=== PATIENT | male | born 1940 | race Caucasian/White ===

== ENCOUNTER 2023-03-31 10:30 | Outpatient (RCR) | payer MEDICARE, BC, SELFPAY | END 2023-06-18 12:20 | disposition home or self-care (01) | PROVIDERS: Visit Provider Family Medicine | DX: R26.81 Unsteadiness on feet (principal); R26.9 Unspecified abnormalities of gait and mobility; M62.81 Muscle weakness (generalized); R29.6 Repeated falls; Z51.89 Encounter for other specified aftercare | CPT/HCPCS: 97110; 97112; 97116; 97162; 97530 ==

== ENCOUNTER 2023-06-09 12:57 | Outpatient (CLI) | payer MEDICARE, BC, SELFPAY | END 2023-06-09 12:58 | disposition home or self-care (01) | LOC: CT 12:59 | PROVIDERS: PCP Family Medicine; Visit Provider Orthopaedic Surgery Sports Medicine | DX: M19.011 Primary osteoarthritis, right shoulder (principal) | CPT/HCPCS: 73200 ==

== ENCOUNTER 2023-07-16 09:41 | Day surgery (SDC) | payer MEDICARE, BC, SELFPAY ==
[2023-07-16] VITALS (19 sets, daily range): BP systolic 131–175; BP diastolic 73–97; PULSE 65–109; RESP 16–23; TEMP 36.1–36.6; O2SAT 93–98; BMI 29.5
[2023-07-16] MEDS: ACETAMINOPHEN 500 MG TABLET 1000 MG PO ×2 (10:05→18:14)
[2023-07-16] MEDS: SODIUM CHLORIDE 0.9 % (FLUSH) 10 ML SYRINGE IVF (10:10)
[2023-07-16] MEDS: LACTATED RINGERS 1000 ML 1,000 ML 100 ML IV ×2 (10:10→13:12)
--- NOTE | 2023-07-16 10:38 | W.ANESCHARGE ---
Anesthesia Charges Start Date/Time Anesthesia Start Date: 07/16/23 Anesthesia Start Time: 12:45 Stop Date/Time Anesthesia Stop Date: 07/16/23 Anesthesia Stop Time: 15:17 Summary Extremes of Age - Over 70 or under 1: MDA
--- NOTE | 2023-07-16 10:39 | W.PM.NB ---
Nerve Block Nerve Block Time Seen by Provider: 12:05 Date Seen: 07/16/23 Type of block requested by surgeon for post-operative analgesia: supraclavicular Side: right Time out performed: Yes Verification of patient name: Yes Verification of date of : Yes Site marking: site marked Name of person performing procedure: Jayant Continuous monitoring Was continuous monitoring of O2 sat, B/P, color television console monitor, recorded every 15 minutes?: Yes Procedure Checklist: sterile prep, needles and gloves Ultrasound guided. Images saved: Yes Medications given in 5ml increments after negative aspiration: Ropivicaine %: 0.5 mL: 20 Needle gauge: 22 Decadron (mg): 10 Precedex (mcg): 25 Patient tolerated procedure well: Yes Block Charges Block Charge (with Pro Fee): Brachial Plexus Use of Ultrasound Machine for Block: Yes- US Guidance/pain block
--- NOTE | 2023-07-16 11:59 | W.PM.H&PU ---
History & Physical Update History & Physical Update H&P Reviewed and patient assessed: No changes noted
[2023-07-16] MEDS: fentaNYL 100 MCG/2 ML inj IVP (12:00)
[2023-07-16] MEDS: MIDAZOLAM HCL 1 MG/ML inj IVP (12:00)
[2023-07-16] MEDS: CEFAZOLIN 2 GM in 0.9 % SODIUM CHLORIDE Mini-bag 100 ML IVPB ×2 (12:01→18:13)
[2023-07-16] MEDS: TRANEXAMIC ACID 100 MG/ML INJ 1000 MG IV (12:03)
--- NOTE | 2023-07-16 12:15 | SUR.PREOP ---
TIME?OUT:?1200 PT/Javan BARCLAY RN/Jos HODGES MDA?VERIFICATION?OF?SURGICAL?SITE,?PROCEDURE,?AND?CONSENT OBTAINED?PRIOR?TO?INVASIVE?PROCEDURE.
--- NOTE | 2023-07-16 13:04 | XR_ITS ---
Patient: ALIZA HOPKINS Facility:?[facility] Patient ID:?[id number] Site Patient ID:?[id number]. Site :?[id number] Study:?XRay-Extremity Right 2V SHOULDER-07/16/2023 3:33:50 PM Ordering Physician:?DR. JORDAN Final Report: Indication: RIGHT REVERSE TOTAL SHOULDER Technique: Two views right shoulder Findings/Impression: Hardware from a right reverse total shoulder arthroplasty is in satisfactory position. Bone alignment is normal. No sign of acute fracture. Postop changes are within normal limits. Dictated by Germain Ferris MD @ 07/17/2023 10:24:50 AM Signed by:?Germain Ferris MD @07/17/2023 10:24:50 AM (Electronic Signature)
--- NOTE | 2023-07-16 15:01 | P.ORPRC_ITS ---
Procedure Note Date of procedure: 07/16/23 Procedure: PREOPERATIVE DIAGNOSIS: 1. Right shoulder cuff tear arthropathy, severe POSTOPERATIVE DIAGNOSIS: 1. Right shoulder cuff tear arthropathy, severe PROCEDURE: 1. Right reverse shoulder arthroplasty. SURGEON: Manpreet Vicente MD. HOSTLER HELPER: Luis F Goyal PA-C - Of note, a skilled medical office assistant instructor was critical for this case to aid in patient positioning, tissue retraction, limb manipulation/positioning, retraction for glenoid exposure, which was challenging, awareness and protection of critical structures, and closure. ANESTHESIA: General plus supraclavicular block EBL: 250 ml IMPLANTS: DJ0 surgical Altivate humeral stem size 12 regular shell, short with P2 porous coating vitamin E neutral poly small socket insert RSP glenoid base plate P2 porous coating with 4 perimeter locking screws 32 neutral glenosphere with retaining screw COMPLICATIONS: None evident INDICATIONS: The patient is a pleasant 83-year-old male who has experienced severe right shoulder pain and difficulty with use. Workup included imaging which revealed severe osteoarthrosis along with concern for rotator cuff quality. Physical exam was consistent with associated pain. Given the deformity, the dysfunction, and the pain, and failure of nonoperative management, recommendation was made for surgery. DESCRIPTION OF PROCEDURE: Following a thorough discussion of risks, benefits, and alternatives, consent was obtained and the left shoulder was marked. The patient was brought to the operating room and placed supine on the operating table. Induction of anesthesia was undertaken. 2 g IV Ancef and 1 g tranexamic acid was administered within 1 hr of incision preoperatively. Appropriate time- out was performed identifying proper patient, site, and procedure. The operative extremity was prepped and draped in the appropriate sterile fashion using ChloraPrep after the patient was positioned in the lazy beach chair position with head in neutral alignment and all bony prominences well padded. A longitudinal incision was made for deltopectoral approach. Deltoid was retracted laterally. Cephalic vein was identified and retracted laterally as well. Vein was spared/protected throughout the case. The clavipectoral fascia was identified and divided longitudinally staying lateral to the conjoined tendon / coracoid. The conjoined tendon was protected with a blunt Hohmann. The long head biceps tendon was not identified/visible. The upper 1/4 of the pectoralis major was also released from its insertion. The rotator cuff was inspected and found to have good integrity with the subscapularis but fair integrity with a supraspinatus], and a decision for a reverse shoulder arthroplasty was confirmed. A subscapularis peel was utilized for access to the joint. This was tagged for later repair. The 3 sisters were cauterized. The upper subscapularis was released from the capsule with a curved Carlos scissors towards the glenoid. The inferior subscapularis was divided from the capsular tissue on its caudal surface with particular caution for the axillary nerve. This was palpated anterior to the subscapularis both prior to and near the finish of the case. Inferior humeral head osteophytes were excised with caution taken throughout the case with regards to the axillary nerve. The humerus was dislocated, and humeral head cut completed. Then a protector plate was applied. We turned our attention to the glenoid. The humerus was retracted posteriorly. The subscap was protected anteriorly and the labrum/long head biceps origin was excised circumferentially. The capsule was released along the anterior and inferior portions of the glenoid cautiously with a Brooks elevator being careful not to penetrate deep. The glenoid had appropriate exposure, and was prepared with the cannulated system with a target of approximately 5-10? of inferior tilt and neutral anteversion (patient had 5 ? of retroversion initially). [Utilizing the match Point 3D printed guide, the guide pin was placed. The 3D printed jig removed and after placing the guide pin, the tap was placed followed by the glenoid reaming. The real base plate was opened, and inserted, and excellent compression/purchase was achieved with the central screw. Peripheral screws were then drilled, measured, and placed. The glenosphere was then placed consistent with the preoperative plan utilizing the above noted glenosphere. After securing the glenosphere with the locking, torque limited screw, attention was turned back to the humerus. A canal finder was placed followed by various reamers by hand. The real humeral stem was then opened and inserted with excellent metaphyseal fit and stability. Trial poly was placed and the shoulder reduced. Excellent reduction and stability achieved with appropriate tension on the conjoined tendon. At this stage, trial implants were removed, and the real implants inserted and the shoulder reduced. A 3 minute Betadine soak was performed followed by a thorough irrigation with normal saline. Subscapularis was repaired with suture tape through drill holes in the proximal humerus that were wrapped around the stem as it was being inserted and allowed it to be anchored. Excellent reapproximation of tissue achieved. Hemostasis was found to be appropriate. The deltopectoral interval was reapproximated with 0 Vicryl, subcutaneous and subcuticular closure was then performed with number 2-0 Vicryl and 4-0 Monocryl, respectively. A skilled medical office assistant instructor was critical for this case to aid in patient positioning, tissue retraction, limb manipulation/positioning, retraction for glenoid exposure, which was challenging, awareness and protection of critical structures, and closure. PLAN: 1. Sling at all times for the operative upper extremity. 2. AROM of elbow, forearm, wrist, and digits as tolerated. 3. PT/OT consults for education and assistance. 4. Social consult for discharge planning. 5. 23 hr perioperative antibiotics. 6. Early ambulation, and SCDs for DVT prophylaxis. 7. Admit to the hospital for the above 8. Analgesics p.r.n.
--- NOTE | 2023-07-16 15:33 | W.ANESCHARGE ---
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
[2023-07-16] MEDS: LACTATED RINGERS 1000 ML 1,000 ML 75 ML IV (15:51)
--- NOTE | 2023-07-16 15:57 | SUR.PHASEI ---
Patient met discharge criteria per anesthesia
[2023-07-16] MEDS: HYDROCODONE-ACETAMIN 5-325 MG 1 TAB PO ×2 (17:11→22:21)
--- NOTE | 2023-07-16 17:14 | PM.IMCN1 ---
Date of Consult Consult date: 07/16/23 Requesting Physician: Orthopedics Primary Care Provider: Lisandro Garcia MD Consult Narrative Reason for consult: Medical management of comorbidities Narrative: Braydon Allen is a 83 year old male who presented to the hospital today for an elective reverse right total shoulder. There were no surgical or anesthetic complications noted during procedure. Patient's H&P reviewed, PCP is Dr. Garcia. Past medical history significant for: CKD, hypertension, hyperlipidemia, [id number] DM2. Postoperative plan: home with When I see patient, he is sitting comfortably in bed and having supper. Review of Systems Status of ROS: Reports: 10 or more systems reviewed and unremarkable except as noted in History and below [facility] Medical History (Updated 05/16/23 @ 10:36 by Monik Franco) Traumatic tear of right rotator cuff ?S46.011A - Strain of muscle(s) and tendon(s) of the rotator cuff of right shoulder, initial encounter (ICD-10) MRSA infection ?A49.02 - Methicillin resistant Staphylococcus aureus infection, unspecified site (ICD-10) Arthritis ?M19.90 - Unspecified osteoarthritis, unspecified site (ICD-10) Type 2 diabetes mellitus ?E11.9 - Type 2 diabetes mellitus without complications (ICD-10) Myocardial infarction ?I21.9 - Acute myocardial infarction, unspecified (ICD-10) Hypertension ?I10 - Essential (primary) hypertension (ICD-10) Coronary artery disease ?I25.10 - Atherosclerotic heart disease of [place] coronary artery without angina pectoris (ICD-10) Surgical History (Updated 07/16/23 @ 17:19 by Erica Mccain MD) S/P shoulder replacement ?Z96.619 - Presence of unspecified artificial shoulder joint (ICD-10) H/O arthroscopy of right knee (06/05/07) ?Z98.890 - Other specified postprocedural states (ICD-10) History of prostate surgery ?Z98.890 - Other specified postprocedural states (ICD-10) 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) ?Z96.651 - Presence of right artificial knee joint (ICD-10) H/O hernia repair ?Z98.890 - Other specified postprocedural states (ICD-10) ?Z87.19 - Personal history of other diseases of the digestive system (ICD-10) History of cholecystectomy ?Z90.49 - Acquired absence of other specified parts of digestive tract (ICD-10) H/O right coronary artery stent placement ?Z95.5 - Presence of coronary angioplasty implant and graft (ICD-10) History of right hip replacement (12/13/19) ?Z96.641 - Presence of right artificial hip joint (ICD-10) Social History Smoking Status: Never smoker How often do you have a drink containing alcohol: never AUDIT-C Alcohol total score: 0 Non-prescribed substance use: denies use Caffeine: Yes Meds Home Medications and Allergies Home Medications Medication Instructions Recorded Confirmed Type amlodipine 5 mg tablet 5 mg PO DAILY 05/16/23 07/16/23 History rosuvastatin 20 mg tablet 20 mg PO HS 05/16/23 07/16/23 History ascorbic acid (vitamin C) 1,000 mg 1 g PO DAILY 07/16/23 07/16/23 History capsule cholecalciferol (vitamin D3) 125 125 mcg PO DAILY 07/16/23 07/16/23 History mcg (5,000 unit) capsule glipizide 2.5 mg tablet, extended 2.5 mg PO DAILY 07/16/23 07/16/23 History release 24 hr omega 4-tug-cpl-fish oil 1,000 mg 1 cap PO DAILY 07/16/23 07/16/23 History (120 mg-180 mg) capsule (Fish Oil) sildenafil 50 mg tablet (Viagra) 50 mg PO DAILY PRN 07/16/23 07/16/23 History Allergies Allergy/AdvReac Type Severity Reaction Status Date / Time adhesive Allergy Verified 07/16/23 10:17 oxycodone Allergy hallucinati Verified 07/16/23 10:17 ons pseudoephedrine AdvReac Intermediate unable to Verified 07/16/23 10:17 [From Sudafed] urinate atorvastatin AdvReac Diarrhea Verified 07/16/23 10:17 Exam Narrative: Exam Narrative: GEN: Alert and oriented, nontoxic HEENT: Normal external ears, EOMIs bilaterally, no scleral icterus CV: Pulse palpates as RRR R: Breathing comfortably without tachypnea Ext: wwp, no concerning edema Skin: No concerning skin lesions or rashes on exposed skin Neuro: Nonfocal Psych: Appropriate Const: Vital Signs, click to edit/add: Vital Signs - 24 hr 07/16/23 10:18 07/16/23 11:58 07/16/23 12:05 Temperature 97.8 F Pulse Rate 82 67 65 Respiratory Rate 16 16 16 Blood Pressure 175/83 H 166/88 H 154/77 H Pulse Oximetry 98 98 97 Oxygen Delivery Me thod Room Air Nasal Cannula Nasal Cannula Oxygen Flow Rate 2 2 07/16/23 15:14 07/16/23 15:15 07/16/23 15:20 Temperature 97.1 F L Pulse Rate 94 97 94 Respiratory Rate 20 20 Blood Pressure 157/83 H 149/80 H 146/96 H Pulse Oximetry 98 97 93 Oxygen Delivery Me thod Room Air Oxygen Flow Rate 07/16/23 15:25 07/16/23 15:30 07/16/23 15:35 Temperature Pulse Rate 93 94 90 Respiratory Rate 20 23 20 Blood Pressure 138/76 140/78 H 139/74 Pulse Oximetry 94 94 95 Oxygen Delivery Me thod Oxygen Flow Rate 07/16/23 15:40 07/16/23 16:00 07/16/23 16:11 Temperature 97 F L 97 F L 96.9 F L Pulse Rate 91 88 90 Respiratory Rate 21 18 180 H Blood Pressure 137/74 147/77 H 139/75 Pulse Oximetry 94 94 94 Oxygen Delivery Me thod Room Air Room Air Oxygen Flow Rate Assessment and Plan Assessment and plan (1) S/P shoulder replacement: Problem comment: - R, 07/16/23Cinthia Status: Acute Plan - pain management and prophylaxis per orthopedic surgery team - continue home medications for comorbidities - anticipate routine postoperative course
[2023-07-16] MEDS: SENNOSIDES 1 TAB TABLET 2 TAB PO (20:49)
[2023-07-16] MEDS: LACTATED RINGERS 1000 ML 1,000 ML 35 ML IV (20:50)
[2023-07-17] MEDS: ACETAMINOPHEN 500 MG TABLET 1000 MG PO (00:50)
[2023-07-17] MEDS: CEFAZOLIN 2 GM in 0.9 % SODIUM CHLORIDE Mini-bag 100 ML IVPB (01:54)
[2023-07-17 02:26] VITALS: BP 156/88; PULSE 101; RESP 18; TEMP 36.4; O2SAT 95
--- NOTE | 2023-07-17 05:18 | PC.NURSE ---
Patient pleasant, alert and oriented. Dressing to right shoulder clean, dry and intact. Ice pack applied to right shoulder. Rates pain 2/10. Tolerated regular diet. Ambulates with assist of one. ?
[2023-07-17] MEDS: HYDROCODONE-ACETAMIN 5-325 MG 1 TAB PO (06:07)
[2023-07-17 06:21] LABS: Hematocrit 34.5 % (37.0-53.0); Hemoglobin* 11.7 gm/dL (13.5-17.5); Mean Corpuscular HGB Conc 34 gm/dL (32-36); Mean Corpuscular Hemoglobin 31 pg (26-34); Mean Corpuscular Volume 91 fL (80-100); Platelet Count* 198 K/uL (140-440); Red Blood Count 3.79 m/uL (4.30-5.90); White Blood Count* 14.63 K/uL (4.50-11.00)
[2023-07-17 06:40] LABS: Potassium* 4.4 mmol/L (3.6-5.1); Sodium* 135 mmol/L (135-149)
[2023-07-17 06:43] LABS: Blood Urea Nitrogen* 42 mg/dL (7-30); Estimated Glomerular Filt Rate 32 ml/min
[2023-07-17 06:50] LABS: Slide Review Reflex No
[2023-07-17 07:59] VITALS: BP 154/98; PULSE 72; RESP 18; TEMP 36.6; O2SAT 92
[2023-07-17] MEDS: AMLODIPINE 5 MG TABLET PO (08:39)
[2023-07-17] MEDS: SENNOSIDES 1 TAB TABLET 2 TAB PO (08:40)
[2023-07-17] MEDS: glipiZIDE 2.5 MG ER TAB PO (08:40)
[2023-07-17] MEDS: HYDROmorphone 2 MG TABLET PO (08:40)
--- NOTE | 2023-07-17 09:33 | PM.ORPN ---
Subjective Subjective Date Seen: 07/17/23 Principal diagnosis: Status postop day 1 right reverse total shoulder arthroplasty Interval history: Patient reports doing okay. No acute events over night. Moderate shoulder pain; switched to hydromorphone now. Pain managed with scheduled and PRN medications, ice. DVT prophylaxis: bilateral knee high Marcial stockings, SCDs, walking. Denies fevers, chills, aches, N/V, CP, SOB/LIRA, or lightheadedness. Ortho Exam Narrative Exam Narrative: -Patient appears comfortable in recliner; no apparent acute distress -Alert and oriented times 3 -Operative shoulder swollen; soft, supple tissues; no obvious erythema. Ecchymosis minimal. Warmth appropriate -Surgical dressing clean, dry, intact; no obvious drainage, no erythematous streaking peripheral to the bandage -Bilateral calves soft and supple; no significant swelling, edema, tenderness, erythema, discoloration, warmth, or palpable cords -2+ radial pulse, intact dermatomes and myotomes distally (5/5 strength) Const Vital Signs, click to edit/add: Vital Signs - 24 hr 07/16/23 10:18 07/16/23 11:58 07/16/23 12:05 Temperature 97.8 F Pulse Rate 82 67 65 Pulse Rate [Pulse Oximeter] Pulse Rate [Right Radial] Respiratory Rate 16 16 16 Blood Pressure 175/83 H 166/88 H 154/77 H Blood Pressure [Left Arm] Pulse Oximetry 98 98 97 Oxygen Delivery Method Room Air Nasal Cannula Nasal Cannula Oxygen Flow Rate 2 2 07/16/23 15:14 07/16/23 15:15 07/16/23 15:20 Temperature 97.1 F L Pulse Rate 94 97 94 Pulse Rate [Pulse Oximeter] Pulse Rate [Right Radial] Respiratory Rate 20 20 Blood Pressure 157/83 H 149/80 H 146/96 H Blood Pressure [Left Arm] Pulse Oximetry 98 97 93 Oxygen Delivery Method Room Air Oxygen Flow Rate 07/16/23 15:25 07/16/23 15:30 07/16/23 15:35 Temperature Pulse Rate 93 94 90 Pulse Rate [Pulse Oximeter] Pulse Rate [Right Radial] Respiratory Rate 20 23 20 Blood Pressure 138/76 140/78 H 139/74 Blood Pressure [Left Arm] Pulse Oximetry 94 94 95 Oxygen Delivery Method Oxygen Flow Rate 07/16/23 15:40 07/16/23 16:00 07/16/23 16:15 Temperature 97 F L 97 F L Pulse Rate 91 88 94 Pulse Rate [Pulse Oximeter] Pulse Rate [Right Radial] Respiratory Rate 21 18 18 Blood Pressure 137/74 147/77 H 140/73 H Blood Pressure [Left Arm] Pulse Oximetry 94 94 93 Oxygen Delivery Method Room Air Room Air Oxygen Flow Rate 07/16/23 16:30 07/16/23 16:45 07/16/23 17:15 Temperature 97.1 F L 97 F L Pulse Rate 93 107 H 104 H Pulse Rate [Pulse Oximeter] Pulse Rate [Right Radial] Respiratory Rate 18 18 18 Blood Pressure 146/75 H 143/77 H 131/97 H Blood Pressure [Left Arm] Pulse Oximetry 94 94 95 Oxygen Delivery Method Room Air Room Air Room Air Oxygen Flow Rate 07/16/23 18:15 07/16/23 19:15 07/16/23 20:15 Temperature Pulse Rate 108 H 103 H 109 H Pulse Rate [Pulse Oximeter] Pulse Rate [Right Radial] Respiratory Rate 18 18 18 Blood Pressure 131/97 H 133/80 144/76 H Blood Pressure [Left Arm] Pulse Oximetry 95 95 96 Oxygen Delivery Method Room Air Room Air Room Air Oxygen Flow Rate 07/16/23 23:00 07/17/23 02:26 07/17/23 07:59 Temperature 97.0 F L 97.5 F L 97.8 F Pulse Rate Pulse Rate [Pulse Oximeter] 102 H 101 H Pulse Rate [Right Radial] 72 Respiratory Rate 18 18 18 Blood Pressure Blood Pressure [Left Arm] 151/85 H 156/88 H 154/98 H Pulse Oximetry 96 95 92 Oxygen Delivery Method Room Air Room Air Room Air Oxygen Flow Rate Assessment and Plan Assessment and plan (1) S/P shoulder replacement: Problem details: - R, 07/16/23, Cinthia Status: Acute Plan - Complete 23 hour perioperative antibiotics. - PT/OT consult for education and assistance. - Social work consult for discharge planning - Prescribed analgesics as needed - DVT prophylaxis: bilateral knee high Marcial Hose stockings and SCDs - Anticipation is for discharge to home with spouse today, 07/17/2023 if the patient remains medically stable, pain is controlled, and they are safe with mobilization.
--- NOTE | 2023-07-17 10:01 | REH.PT ---
Pt declines PT Eval & Treat. Feels comfortable with HEP and is ind with mobility. Spouse in agreement. D/C PT.
== END 2023-07-17 10:17 | disposition home or self-care (01) ==
LOC: OR 09:42 → MEDSURG 09:43
PROVIDERS: PCP Family Medicine; Visit Provider Orthopaedic Surgery Sports Medicine
PROC: 0RRJ0JZ Replacement of Right Shoulder Joint with Synthetic Substitute, Open Approach (ICD-10-PCS; CPT 23472; principal; 2023-07-16 11:15)
DX: M75.121 Complete rotator cuff tear or rupture of right shoulder, not specified as traumatic (principal); G89.18 Other acute postprocedural pain; I12.9 Hypertensive chronic kidney disease with stage 1 through stage 4 chronic kidney disease, or unspecified chronic kidney disease; E11.22 Type 2 diabetes mellitus with diabetic chronic kidney disease; N18.32 Chronic kidney disease, stage 3b; E78.5 Hyperlipidemia, unspecified
CPT/HCPCS: 23472; 01638; 36415; 64415; 73030; 76942; 82565; 82962; 84132; 84295; 84520; 85027; 97165; 97535; 99100; A9270; C1713; C1776; J0690; J1100; J2250; J2405; J2704; J2710; J2795; J3010; J7120

== ENCOUNTER 2023-10-31 14:30 | Outpatient (RCR) | payer MEDICARE, BC, SELFPAY ==
--- NOTE | 2023-08-04 16:54 | PT.OPEX ---
PT [place] Outpatient Eval PT [facility] Outpatient Eval Start: 08/04/23 15:14 Freq: Status: Active Protocol: Document 08/04/23 15:15 LOLLY (Rec: 08/04/23 16:49 LOLLY [id number]) E-signed By Kira Moreno DPT Physical Therapy Outpatient Evaluation Insurance Information Recert Due Date 11/02/23 Insurance Name Medicare B,Blue Cross/[employer] Medical Diagnosis s/p R reverse TSA 07/16/23 Treating Diagnosis s/p R reverse TSA 07/16/23 with R shoulder pain, impaired R shoulder ROM, impaired R shoulder/UE mobility/strength, impaired functional use of R shoulder/UE. Subjective Subjective Patient reports having R reverse total shoulder surgery on 07/15. States he was using his sling initially but has been able to go without it at home or with light activity. Still wearing the sling when out in the community to protect his shoulder. He reports mild-moderate pain, really describes it more as achiness. Using tylenol regularly. Initially using ice but hasn't needed it lately. Patient had follow up with [facility] K[facility]s 07/24 to remove the dressing. Incision is looking good, healing. Patient has been doing elbow/ wrist/hand ROM and R shoulder codmans. Per patient report he is able to go without the sling at home and use R UE for eating, light activity moving forward but not out to his side. Follow up scheduled for MD September 04. Date of Last Physician Visit 07/25/23 Date of Next Physician Visit 09/05/23 Date of Surgery (If applicable) 07/16/23 Precautions Treatment Precautions/Contraindications DM, heart condition, HTN, cancer, OA, R reverse TSA 07/15 Assessment Assessment/Impression Patient is an 83 year old male s/p R reverse TSA 07/16/23 with R shoulder pain, impaired R shoulder ROM, impaired R shoulder/UE mobility/strength, impaired functional use of R shoulder/UE. Patient reports general soreness/achiness in R shoulder, moderate pain. He is using tylenol regularly, not icing lately. He has been doing elbow/wrist/hand ROM exercises, elbow ext stretching, R shoulder codmans . Reports using the sling when going out. Patient/ spouse state that MD instructed him to use the sling when going out but ok to have it off at home as long as he isn't lifting, reaching out to the side. Sleep has been interrupted in the recliner chair. Patient reports his normal sleep position is on his R side. Reviewed protection of R shoulder/UE for healing, use of sling, icing, and HEP. Patient with a good understanding of this information. Performed codmans and supine PROM R shoulder. R shoulder PROM: flex 95 degrees, scap 90 degrees, IR 50 degrees, ER 10 degrees. Strength testing deferred at this time s/p R reverse TSA. Patient to continue with his HEP. Patient would benefit from skilled PT for pain/sx management, improved R shoulder ROM, improved R shoulder/UE mobility/strength, return to functional use of R shoulder/UE, and establishment of HEP. Plan of Care Rehabilitation Potential Good Physical Therapy Goals 1. Decrease R shoulder pain to less than/equal to 3/10 with daily activities and with the progression of PT activities over the next 6-8 weeks. 2. Improve R shoulder PROM over the next 6-8 weeks to prepare for return to functional use of R shoulder/UE. 3. Improve R shoulder AROM over the next 8-10 weeks for return to functional use of R shoulder/ UE with daily activities. 4. Improve R shoulder/UE strength over the next 10-12 weeks for return to full functional use of R shoulder/UE with daily activities. 5. Patient will be I with HEP within 12 weeks for progression toward above goals, ongoing self management of pain/sx, ongoing self improvements in ROM/strength/function, and for return to full functional use of R shoulder/UE with daily activities. Coordination/Communication With Referral Source Treatment Plan/Direct Interventions Manual Therapy,Therapeutic Exercises Frequency/Duration 1-2x/week Patient Will Be Discharged From Therapy Completion of LTG(s),Skills Plateau,Independent w/HEP, Independently Progressing Evaluation Billing Untimed Code Treatment Minutes 23 Complexity Moderate Certification Information Initial Certification Date 08/04/23 Ending Certification Date 11/02/23 Provider Signature Shows Agreement With POC & Medical Necessity Physician Signature & Date Requested Please Sign/Date Here Physician Comment/Change : Physician NPI Number #
== END 2024-02-28 23:59 | disposition home or self-care (01) ==
PROVIDERS: Visit Provider Orthopaedic Surgery Sports Medicine
DX: M19.011 Primary osteoarthritis, right shoulder (principal); Z96.611 Presence of right artificial shoulder joint; M25.511 Pain in right shoulder; Z74.09 Other reduced mobility; R29.898 Other symptoms and signs involving the musculoskeletal system; Z51.89 Encounter for other specified aftercare
CPT/HCPCS: 97110; 97162; 97165; 97535

== ENCOUNTER 2024-11-22 20:50 | Outpatient (CLI) | payer MEDICARE, BC, SELFPAY | END 2024-11-22 20:51 | disposition home or self-care (01) | PROVIDERS: PCP Family Medicine; Visit Provider Emergency Medicine Emergency Medical Services | DX: S89.91XA Unspecified injury of right lower leg, initial encounter (principal); W10.8XXA Fall (on) (from) other stairs and steps, initial encounter; Y92.008 Other place in unspecified non-institutional (private) residence as the place of occurrence of the external cause | CPT/HCPCS: A0425; A0427 ==

== ENCOUNTER 2024-11-22 21:41 | Emergency (ER) | payer MEDICARE, BC, SELFPAY ==
--- OUTSIDE RECORDS SUMMARY | 2024-11-08 10:30 | XMS_ITS | Encounter Summary ---
Author Organization [facility] Address [address] [place] [address] Care Team Providers Care Business Solution Analyst Name Role Phone Lisandro Garcia MD Primary Care Provider [phone] Reason for Visit * Reason Comments Follow-up Encounter Details Date Type Department Care Team (Late st Contact Info) Description 11/08/2024 10:30 AM CDT Office Visit [facility] [address] [place] [address] Solitario Garcia MD [address] [place] [place] [address] Chronic kidney disease stage 4 [...] Braydon Allen Date of : 1940 Chart: [id number] PCP: Lisandro Garcia MD Date of Service: [...] obstruction. His Cr trend has been 1.1-1.2from 9336-4050; 1.1-1.6 from 7864-5051 -> 2.0 on 02/10/23 and now 1.9-2.3 [...] our shared goal. 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 cholecalciferol (VITAMIN D-3) 250 MCG (00511 UT) capsule Ramsey Mccarthy MD Take 125 [...] by mouth 1 (one) time each day [place] 3 1000 MG capsule Ramsey Mccarthy MD [...] . Solitario Garcia MD [facility] documented in this encounter Plan of Treatment [...] (HCC) documented in this encounter Care Teams Business Solution Analyst Relationship Specialty Start Date End Date Lisandro Garcia MD [address] [place] [address] PCP - General Family Medicine 05/11/24 documented as of this encounter
[2024-11-22] VITALS (8 sets, daily range): BP systolic 187–223; BP diastolic 97–111; PULSE 68–79; RESP 16–18; TEMP 36.6–36.7; O2SAT 94–97; BMI 27.3
--- OUTSIDE RECORDS SUMMARY | 2024-11-22 21:44 | XMS_ITS | Encounter Summary ---
Author Organization [facility] Address [address] [place] [address] Care Team Providers Care Damascener Name Role Phone Lisandro Garcia MD Primary Care Provider [phone] Encounter Details Date Type Department Care Team (Late st Contact Info) Description 10/20/2024 Results Follow-Up [facility] [address] [place] [address] Stacey Wu, RN [address] [place] [address] Social History Tobacco Use Types Packs/Day Years [...] on file documented as of this encounter Plan of Treatment Not on file documented as of this encounter Visit Diagnoses Not on filedocumented in this encounter Care Teams Damascener Relationship Specialty Start Date End Date Lisandro Garcia MD [address] [place] [address] PCP - General Family Medicine 05/11/24 documented as of this encounter
--- OUTSIDE RECORDS SUMMARY | 2024-11-22 21:44 | XMS_ITS | Encounter Summary ---
Author Organization [facility] Address [address] [place] [address] Care Team Providers Care Special Effects Makeup Artist Name Role Phone Lisandro Garcia MD Primary Care Provider [phone] Encounter Details Date Type Department Care Team (Late st Contact Info) Description 10/18/2024 Telephone [facility] [address] [place] [address] Stacey Wu, RN [address] [place] [address] Social History Tobacco Use Types [...] on file documented as of this encounter Miscellaneous Notes * Telephone Encounter - Stacey Wu RN - 10/18/2024 2:10 PM CDT Pt called to have lab order faxed to Kim Leon at [phone]. Order faxed. documented in this encounter Plan of Treatment Not on file documented as of this encounter Visit Diagnoses Not on filedocumented in this encounter Care Teams Special Effects Makeup Artist Relationship Specialty Start Date End Date Lisandro Garcia MD [address] [place] [address] PCP - General Family Medicine 05/11/24 documented as of this encounter
--- OUTSIDE RECORDS SUMMARY | 2024-11-22 21:44 | XMS_ITS | Clinical Summary ---
Author Organization [facility] [place] [place] Address [address] [place] [address] Phone Care Team Providers Care Psychiatric Clinical Nurse Specialist Name Role Phone Lisandro Garcia MD Primary Care Provider [phone] Allergies Active Allergy Reactions Criticality Noted Date Comments Adhesive Tape Rash Low 09/02/2018 Atorvastatin Diarrhea High 11/22/2021 Lisinopril Diarrhea 02/13/2023 Other 05/13/2024 Oxycodone Other (see comments) 08/20/2017 Pt reported Pseudoephedrine Other (see comments) 05/13/2024 Medications ascorbic acid (VITAMIN C) 1000 MG tablet Take 1,000 mg by mouth in the morning. Active cholecalcifero l (VITAMIN D-3) 250 MCG (18364 UT) capsule Take 125 mcg by mouth 1 (one) time each day Active glipiZIDE (GLUCOTROL XL) 2.5 MG 24 hr tablet Take 2.5 mg by mouth in the morning. 4 Active olmesartan (BENICAR) 40 MG tablet Take 20 mg by mouth 1 (one) time each day 5 Active Holt 3 1000 MG capsule Take 1 capsule by mouth in the morning. Active rosuvastatin (CRESTOR) 10 MG tablet Take 10 mg by mouth in the morning. 4 Active Zinc 50 MG tablet Take 50 mg by mouth in the morning. Active Coenzyme Q10 400 MG capsule Take by mouth Active Vitamin E 180 MG (400 UNIT) capsule Take by mouth Active MULTIPLE VITAMIN PO Take by mouth Active metoprolol succinate XL (Toprol XL) 25 MG 24 hr tablet Take 1 tablet (25 mg total) by mouth 1 (one) time each day Do not crush or chew. 30 tablet 11 5 05/14/19 26 Active sildenafil (VIAGRA) 50 MG tablet Take 50 mg by mouth at night if needed 2 11/09/19 25 Discontinued Active Problems Problem Noted Date Diagnosed Date Proteinuria 05/11/2024 Lower urinary tract symptoms due to benign prostatic hypertrophy 07/17/2023 Chronic kidney disease stage 4 06/05/2023 Bilateral lower limb edema 04/17/2023 Type 2 diabetes mellitus wit h diabetic chronic kidney disease 04/01/2023 Coronary arteriosclerosis 04/01/2023 Retention of urine 12/19/2021 Erectile dysfunction 11/14/2021 Mass of pancreas 09/07/2018 Overview (05/14/2024): Cystic mass in Pancreas noted on CT at [facility] in 05/2018. Pancreatic MRI recommend to follow up on this area in 05/2019. Hypertensive chronic kidney disease with stage 1 through stage 4 chronic kidney disease, or unspecified chronic kidney disease 08/31/2018 Coronary arteriosclerosis 08/16/2017 Overview (05/14/2024): He had a stent placed in the diagonal branch of his left anterior descending artery on 01/03/2005 at [facility]. Hyperlipidemia 05/18/2012 Encounters Date Type Department Care Team Description 11/08/2024 10:30 AM CDT Office Visit [facility] [address] [place] [address] Solitario Garcia MD Chronic kidney disease stage 4 (HCC) (Primary Dx); Hypertensive chronic kidney disease with stage 1 through stage 4 chronic kidney disease, or unspecified chronic kidney disease; Proteinuria, not otherwise specified; Coronary arteriosclerosis, not otherwise specified; Other hyperlipidemia; Lower urinary tract symptoms due to benign prostatic hypertrophy; Type 2 diabetes mellitus with diabetic chronic kidney disease (HCC) 10/20/2024 Results Follow-Up [facility] [address] [place] [address] Stacey Wu RN 10/18/2024 Telephone [facility] [address] [place] [address] Stacey Wu RN 09/06/2024 Orders Only [facility] [address] [place] [address] Solitario Garcia MD Chronic kidney disease stage 4 (HCC) from Last 3 Months Family History Medical History Relation Comments Diabetes Brother Diabetes Mother Heart disease Mother Relation Status Comments Brother Father Mother Sister Alive Social History Tobacco Use Types Packs/Day Years Used Date Smoking Tobacco: Never Smokeless Tobacco: Never Tobacco Cessation:Counseling Given: Not Answered Alcohol Use Standard Drinks/Week Comments Yes 0 (1 standard drink = 0.6 oz pur e alcohol) rare wine Sex and Gender Information Value Date Recorded Sex Assigned at Not on file Legal Sex Male 11:36 AM EST Gender Identity Not on file Sexual Orientation Not on file Last Filed Vital Signs Vital Sign Reading [...] Mass Index 27.58 11/08/2024 10:18 AM CDT Plan of Treatment Health Maintenance Due Date Last Done Comments Pneumococcal Vaccine: 50+ Years (1 of 2 - PCV) 1959 Diabetes: Ophthalmology Exam 05/11/2024 Diabetes: Pedal Pulse Checked 05/11/2024 Diabetes: Sensory Foot Exam 05/11/2024 Diabetes: Visual Foot Exam 05/11/2024 Influenza Vaccine (#1) 2025 Diabetes: Hemoglobin A1C 01/12/2025 025, 04/13/2024, 06/21/2023, Additional history exists Hepatitis B Vaccine Aged Out No longe r eligible based on patient's age to complete this topic Procedures Procedure Name Priority Date/Time Associated Diagnosis Comments HEMOGLOBIN Routine 10/18/2024 Chronic kidney disease stage 4 (HCC) RENAL FUNCTION PANEL Routine 10/18/2024 Chronic kidney disease stage 4 (HCC) from Last 3 Months Results * (ABNORMAL) Hemoglobin (10/18/2024) Hemoglobin 13.0(L) g/dL [facility] Blood Venous blood / Unknown 10/18/2024 Solitario Garcia MD LAB BLOOD ORDERABLES Final Re sult Performing Organization Address [facility] Co de Phone Number [facility] * (ABNORMAL) Renal function panel (10/18/2024) Glucose 196(H) mg/dL [facility] BUN 48(H) mg/dL [facility] Creatinine 2.40(H) mg/dL [facility] BUN/Creatinine Ratio 20 [facility] Sodium 137 mEq/L [facility] Potassium 4.5 mEq/L [facility] Chloride 105 [facility] Carbon Dioxide 23 mmol/L [facility] Calcium 9.6 mg/dL [facility] Phosphorus, Serum 3.4 mg/dL [facility] Albumin (Blood) 3.8 g/dL [facility] eGFR 26(L) [facility] Blood Venous blood / Unknown 10/18/2024 Solitario Garcia MD LAB BLOOD ORDERABLES Final Re sult Performing Organization Address [facility]/ZIP Co de Phone Number [facility] from Last 3 Months Insurance [facility] Care Teams Psychiatric Clinical Nurse Specialist Relationship Specialty Start Date End Date Lisandro Garcia MD [address] [place] [address] PCP - General Family Medicine 05/11/24
--- OUTSIDE RECORDS SUMMARY | 2024-11-22 21:44 | XMS_ITS | Encounter Summary ---
Author Organization [facility] Address [address] [place] [address] Care Team Providers Care Cook Room Supervisor Name Role Phone Lisandro Garcia MD Primary Care Provider [phone] Encounter Details Date Type Department Care Team (Late st Contact Info) Description 09/06/2024 Orders Only [facility] [address] [place] [address] Solitario Garcia MD [address] [place] [address] Chronic kidney disease stage 4 (HCC) Social History Tobacco Use Types Packs/Day [...] on file documented as of this encounter Procedures Procedure Name Priority Date/Time Associated Diagnosis Comments HEMOGLOBIN Routine 10/18/2024 Chronic kidney disease stage 4 (HCC) RENAL FUNCTION PANEL Routine 10/18/2024 Chronic kidney disease stage 4 (HCC) documented in this encounter Results * (ABNORMAL) Hemoglobin (10/18/2024) Hemoglobin 13.0(L) g/dL [facility] Blood Venous blood / Unknown 10/18/2024 Solitario Garcia MD LAB BLOOD ORDERABLES Final Re [facility] Performing Organization Address [facility] Co de Phone Number [facility] [...] Solitario Garcia MD LAB BLOOD ORDERABLES Final [facility] Performing Organization Address [facility] de Phone Number [facility] documented in this encounter Visit Diagnoses Diagnosis Chronic kidney disease stage 4 (HCC) documented in this encounter Care Teams Cook Room Supervisor Relationship Specialty Start Date End Date Lisandro Garcia MD [address] [place] [address] PCP - General Family Medicine 05/11/24 documented as of this encounter
--- OUTSIDE RECORDS SUMMARY | 2024-11-22 21:44 | XMS_ITS | Clinical Summary ---
Author Organization [facility] Address [address] [place] [address] Care Team Providers Care Tank Filler Name Role Phone Lisandro Garcia MD Primary Care Provider Allergies Active Allergy Reactions Criticality Noted Date Comments Adhesive Tape-Silicones Rash 09/02/2018 Atorvastatin Diarrhea High 11/22/2021 Cats (Fur, Dander, Saliva) Lisinopril Diarrhea 02/13/2023 Oxycodone Hallucinations 08/20/2017 Pt reported Pseudoephedrine Medications zinc 50 mg tablet Take 50 mg by mouth once daily. Active ascorbic acid, vitamin C, (Vitamin C) 1,000 mg tablet Take 1,000 mg by mouth once daily. Active cholecalciferol, vitamin D3, (VITAMIN D3 ORAL) Take 125 mcg by mouth once daily. Active lancetsIndications: Type 2 diabetes mellitus without complication, without long-term current use of insulin (HC) Test one time per day. 100 Each 3 1 Active sildenafil citrate (VIAGRA) 50 mg tabletIndications:E rectile dysfunction, unspecified erectile dysfunction type Take 1 Tablet (50 mg) by mouth once daily if needed for Erectile Dysfunction. Take 30min to 4 hours before sexual activity. Max 100mg/24hr 10 Tablet 6 2 Active Catheter 12-16 Fr- miscIndications:Uri nary retention As directed. Perform Int cath to keep pvr Less than 300cc 100 Each 6 3 Active Jvioc-4-[id number]-EPA-Fis h Oil (Fish OiL) 1,000 mg (120 mg-180 mg) cap Take 1 Capsule by mouth once daily. Active rosuvastatin (CRESTOR) 10 mg tabletIndications:H yperlipidemia, unspecified hyperlipidemia type Take 1 Tablet (10 mg) by mouth at bedtime. 90 Tablet 3 4 Active olmesartan (BENICAR) 40 mg tabletIndications:B enign essential HTN Take 1 Tablet (40 mg) by mouth once daily. 90 Tablet 3 5 Active metoprolol succinate 25 mg Sustained-Release tablet Take 25 mg by mouth once daily. Active blood sugar diagnostic (Blood Glucose Test) stripIndications:Ty pe 2 diabetes mellitus without complication, without long-term current use of insulin (HC) Test one time per day. 100 Each 3 5 Active glipiZIDE extended-release 2.5 mg Extended-Release tabletIndications:T ype 2 diabetes mellitus without complication, without long-term current use of insulin (HC) Take 1 Tablet (2.5 mg) by mouth once daily before a meal. 90 Tablet 1 5 Active Active Problems Problem Noted Date Diagnosed Date Proteinuria 05/11/2024 CKD (chronic kidney disease) stage 4, GFR 15-29 ml/min 06/05/2023 Bilateral lower extremity edema 04/17/2023 Type 2 diabetes mellitus wit h stage 3 chronic kidney disease, unspecified whether keno terminal operator insulin use, unspecified whether stage 3a or 3b CKD 09/09/2022 Urinary retention 12/19/2021 Positive for macroalbuminuria 12/19/2021 Erectile dysfunction 11/14/2021 Pancreatic mass 09/07/2018 Overview (09/07/2018): Cystic mass in Pancreas noted on CT at [facility] in 05/2018. Pancreatic MRI recommend to follow up on this area in 05/2019. Essential hypertension 08/31/2018 CAD: SETH to diag 01/200508/16/2017 Overview (11/26/2019): He had a stent placed in the diagonal branch of his left anterior descending artery on 01/03/2005 at [facility]. Type 2 diabetes mellitus wit hout complication, without long-term current use of insulin 01/18/2016 Overview (01/18/2016): Diagnosed 01/2016 Hyperlipidemia LDL goal < 70 05/18/2012 Resolved Problems Problem Noted Date Diagnosed Date Resolved Date Coronary artery disease due to lipid rich plaque 08/31/2018 09/08/2020 Injury of right rotator cuff 09/26/2017 09/08/2020 Arthritis of right hip 04/18/201702/13 Erectile dysfunction 09/07/2014 021 Elevated creatine kinase 12/30/201111/2020 Unspecified hypothyroidism 01/03/2009 0 11/14/2021 Knee pain 01/02/2009 09/08/2020 Encounters Date Type Department Care Team Description 10/18/2024 2:00 PM CDT Orders Only [facility] [address] [place] [address] Lab, [place] [facility] 10/18/2024 Travel 10/12/2024 10:30 AM CDT Office Visit [facility] [address] [place] [address] Lisandro Garcia MD Diabetes (6 month follow up) 10/12/2024 Travel 09/20/2024 11:00 AM CDT Orders Only [facility] [address] [facility] [address] [place], [place] [facility] 09/20/2024 Travel 09/06/2024 Refill [facility] [address] [place] [address] Lisandro Garcia MD Refill Request (Glipizide Extended-release) from Last 3 Months Immunizations Immunization Administration Dates Next Due Hepatitis A (Adult) 07/13/2001,04/01/2000 Hepatitis B (Adult) 12/05/2006,07/13/2001,1999 Meningococcal Vaccine 04/01/2000 Td (Age >=7 Years) 04/01/2000 Typhoid (injectable) 04/01/2000 Yellow Fever 04/15/2000 Family History Medical History Relation Name Comments Diabetes Brother 3 Diabetes Brother 4 GI Disease Brother 5 ulcers Diabetes Mother Heart Disease Mother Anesthesia Problem No Family History Relation Name Status Comments Brother 1 Alive Brother 2 Alive Brother 3 Brother 4 Brother 5 Father Mother Social History Tobacco Use Types Packs/Day Years Used Date Smoking Tobacco: Never Smokeless Tobacco: Never Tobacco Cessation:Counseling Given: No Alcohol Use Standard Drinks/Week Comments Yes 0 (1 standard drink = 0.6 oz pur e alcohol) rare wine PHQ-2 Answer Date Recorded PHQ-2 TOTAL SCORE 0 02/13/2023 Social Connections Answer Date Recorded Do you often feel lonely or isolated from those around you? 0 05/11/2024 Financial Resource Strain Answer Date R ecorded Difficulty of Paying Living Expenses 3 05/11/2024 Difficulty of Paying Living Expenses Not on file 05/11/2024 Food Insecurity Answer Date Recorded Do you worry your food will run out before you are able to buy more? 1 05/11/2024 Transportation Needs Answer Date Record ed Does lack of transportation keep you from medica l appointments? 1 05/11/2024 Does lack of transportation keep you from work, meetings or getting things that you need? 1 05/11/2024 Housing Stability Answer Date Recorded What is your housing situation today? 1 05/11/2024 Interpersonal Safety Answer Date Record ed Are you being hit, kicked, p ushed or yelled at (see row info)? No 06/21/2023 Interpersonal Safety Abuse 12 - 18 Not on file 06/21/2023 Interpersonal Safety Ambulatory Vulnerability No t on file 06/21/2023 Utilities Answer Date Recorded Do you have trouble paying f or utilities (for example, heat, electricity, water, phone)? 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 Not on file Not on file Obstetrics History Last Filed Vital Signs Vital Sign Reading Time Taken Comments Blood Pressure 138/65 10/12/2024 10:42 AM CDT Pulse 62 10/12/2024 10:36 AM CDT Temperature 36.7 C (98 F) 06/21/2023 7:52 AM [employer] Respiratory Rate 16 06/21/2023 7:52 AM [employer] Oxygen Saturation 95% 10/12/2024 10: 36 AM CDT Inhaled Oxygen Concentration - - Weight 91.1 kg (200 lb 12.8 oz) 025 10:36 AM CDT Height 173.3 cm (5' 8.23) 10/12/2024 1 0:36 AM CDT Body Mass Index 30.33 10/12/2024 10:36 AM CDT Plan of Treatment Health Maintenance Due Date Last Done Comments Pneumococcal series for age 50+ (1 of 2 - PCV) 1959 Zoster (shingles) series for age 50+ (1 of 2) 1989 Tetanus booster 04/01/2010 04/01/2000 RSV vaccine for adults or (1 - 1-dose 75+ series) 2014 COVID-19 vaccine series ( - 2023-25 season) 2024 Medicare Wellness for age 65+ 02/14/2024 02/13/2023, 04/18/2017 Depression screening for age 12+ 02/16/2024 02/15/2023, 02/13/2023, 02/13/2023, Additional history exists Influenza Vaccine (#1) 2025 BMI (ht and wt on same day) for age 18+ 10/12/2025 10/12/2024, 07/08/2023, 06/26/2023, Additional history exists Hepatitis B series for 19+ Completed 12/05, 07/13/2001, 04/01/2000 Procedures Procedure Name Priority Date/Time Associated Diagnosis Comments HEMOGLOBIN A1C MONITORING (POCT) Routine 10/12/2024 11:00 AM CDT Type 2 diabetes mellitus without complication, without long-term current use of insulin (HC) BASIC METABOLIC PANEL Routine 09/20/2024 11:41 AM CDT Benign essential HTN from Last 3 Months Results * (ABNORMAL) HEMOGLOBIN A1C MONITORING (POCT) (10/12/2024 11:00 AM CDT) POC HEMOGLOBIN A1C 7.3(H) <6.0 % OF TOTAL HGB [facility] Comment: Any point of care results exhibiting inconsistency with the patient's clinical status should be repeated using a different testing method. Blood BLOOD SPECIMEN / Unknown 10/12/2024 11:00 AM CDT 10/12/2024 11:01 AM CDT us Lisandro Garcia MD CHEMISTRY Final Result [facility] [address] [place] [address], [place] [phone] [facility] [address] [place] [address] * (ABNORMAL) BASIC METABOLIC PANEL (09/20/2024 11:41 AM CDT) [facility] GLUCOSE 140(H) 65 - 99 mg/dL [facility] Comment: Fasting reference interval For someone without known diabetes, a glucose value >125 mg/dL indicates that they may have diabetes and this should be confirmed with a follow-up test. UREA NITROGEN (BUN) 50(H) 7 - 25 mg/dL [facility] CREATININE 2.66(H) 0.70 - 1.22 mg/dL [facility] EGFR 23(L) > OR = 60 mL/min/1.7 3m2 [facility] BUN/CREATININE RATIO 19 6 - 22 (calc) [facility] SODIUM 142 135 - 146 mmol/L [facility] POTASSIUM 4.5 3.5 - 5.3 mmol/L [facility] CHLORIDE 109 98 - 110 mmol/L [facility] CARBON DIOXIDE 22 20 - 32 mmol/L [facility] ELECTROLYTE BALANCE 11 7 - 17 mmol/L (calc) [facility] CALCIUM 9.9 8.6 - 10.3 mg/dL [facility] Blood BLOOD SPECIMEN / Unknown 09/20/2024 11:41 AM CDT 09/20/2024 11:42 AM CDT us Lisandro Garcia MD CHEMISTRY Final Result [facility] [address] [address], [place] [phone] [facility] [address] [place] [address] from Last 3 Months Insurance MEDICARE PART A HB ONLY MEDICARE PART B HB ONLY [employer]UE [employer] BLUE PB ONLY [employer] BLUE HB ONLY MEDICARE PPS [facility] [employer]HIC[employer] INS Advance Directives * Full Code (Latest Code Status on File) Date Activated Date Inactivated Comments 06/20/2023 5:38 AM 06/21/2023 2:00 PM Should be di scussed pre operatively with anesthesia or surgeon Question Answer Comments Code Status Discussion: Not Discussed * Full Code Date Activated Date Inactivated Comments 01/03/2005 10:10 PM 01/05/2005 1:47 PM Care Teams Tank Filler Relationship Specialty Start Date End Date Lisandro Garcia MD [address] [facility] [address] PCP - General Family Practice 09/08/20
--- OUTSIDE RECORDS SUMMARY | 2024-11-22 21:44 | XMS_ITS | Data Portability ---
Author Organization [facility], [facility] Address [address] [place] [address] Care Team Providers Care Box Puller Name Role Phone ELLE GARCIA Primary Care Provider Assessment Encounter Date Assessment Date Assessment LastModified by Organization Details LastModified Time 04/09/2023 04/09/2023 82 year old male with benign prostatic hyperplasia with lower urinary tract symptoms and urinary retention. Not available 04/05/2023 21:59:11 Plan of Treatment Reminders Order Date Submit Date Provider Last Modified By Organization Details Last Modified Time Details Appointments None recorded. Lab PSA, total, serum or plasma 2022 023 [facility], [address], [place], [address], 3 13:46:48 Referral None recorded. Procedures None recorded. Surgeries transurethr al resection of prostate (SURG) 2022 024 [email or web address] Not available 4 08:53:03 Imaging None recorded. Medication Orders Trimix 30 papaverine/ 1 phentolamin e/10 PGE-1 2023 024 [facility], [address], [place], [address], 4 11:36:38 Patient TargetsNo targets recorded. Patient Instructions Encounter Date Encounter Id Patient Instructions Last Modified By Organization Details Last Modified Time 04/09/2023 [id number] Benign prostatic hyperplasia with lower urinary tract symptoms/Urinary retention: I had a long discussion with the patient regarding his urinary retention. He has been unable to void despite attempted voiding trials with medical therapy. We then discussed his options for alf management. First we discussed the least invasive option which would be to continue with catheter drainage of the bladder with either an indwelling urethral Weaver, clean intermittent catheterization, or placement of a suprapubic tube for superintendent terminal drainage. We then discussed bladder outlet procedures done under general anesthesia, notably bi-polar transurethral resection of the prostate and transurethral laser vaporization of prostate. We discussed the technical differences between these two procedures, but that ultimately the goals of surgery are the same. We discussed the risks of these procedures including bleeding, urinary tract infection, injury to the bladder/urethra/urete ral orifices/urinary sphincter, need for re-operation, risk of superintendent terminal urethral stricture formation, persistent urinary retention, and risks of general anesthesia (CVA/DVT/PE/IL). He would like to proceed with transurethral resection of prostate We will also check a prostate specific antigen prior to proceeding with surgery. Erectile dysfunction: He has had inadequate results with oral therapies. I think the next most reasonable option would be intracavernosal injection therapy. We discussed that this involves injecting vasodilatory agents directly into the penis using a small needle. This may allow men to achieve erections when phosphodiesterase inhibitors are no longer effective. We discussed administration and potential side He would like to try. We will arrange for a teaching session. Not available 04/09/2023 12:40:51 09/03/2023 [id number] 83 y/o male pres ents for a penile injection trial Educated on treatment options such as PDE-5 inhibitors, penile injections, muse, vacuum erection device (ILIA), shockwave therapy and penile implant (IPP). Educated on proper injection technique. Instructed to trial 0.2 cc at home. Titrate up or down as tolerated and needed for desired response. Do not exceed 0.7 cc. Provided hand out on penile injections. Discussed risks of priapism and scar tissue development. Patient to call with questions or concerns. [email or web address] Not available 09/03/2023 11:45:45 Reason for Referral None Reported. Results Created Date Observation Date Name Description Value Unit Range Abnormal Flag Note LastModifiedBy Organization Detail LastModifiedTime 04/09/2004/09/2023 PSA, TOTAL PSA, total 6.69 NG/mL 0.00-4 .00 high This lab resul t is being provi ded to you and your provi gerry at the same time in compl iance with the Centu ry Cures Act. Your provi gerry may not have had time to revie w and make recom menda tions based on the resul t. Sandrine granado allow up to one week for provi gerry revie w. Not Available [facility] [address], [place], [address], 04/09/2023 13:46:48 03/24/20 23 11/21/2021 imagi ng/di agnos tic resul t No observ ation record ed. [email or web address] Not Available 2022 12:27:55 06/12/19 24 MRI, prost ate, w/wo contr ast No observ ation record ed. [email or web address] [facility] [address], [place], [address], 06/12/2023 11:16:55 Result Notes None recorded. Problems Name Problem SNOMED Code Status Onset Date Resolution Date Notes Provider Name and Address Organization Details Recorded Time Coronary arterioscle rosis 63051259 Active 2022 Kelvin Villasenor joshua, [facility] 3 09:57:46 Hypertensiv e disorder 29272745 Active 2022 Kelvin Meath null, [facility] 3 09:57:50 Hyperlipide tiago 29545116 Active 2022 Kelvin Meath null, [facility] 3 09:57:55 Type 2 diabetes mellitus 86217193 Active 2022 Kelvin Meat null, [facility] 3 09:58:02 Retention of urine 923214081 Active 2022 Kelvin Meat null, [facility] 3 09:58:10 Erectile dysfunction 939163515 [facility] 09[facility] Lower urinary tract symptoms due to benign prostatic hypertrophy 0114165256523 1 Active 2023 Kelvin Villasenor joshua [facility] 4 12:52:57 Chronic kidney disease stage 3 072928272 [facility] 12:53:08 Problem Notes None recorded. Procedures Surgical History Date Name Laterality Status Provider Name and Address Organization Details Recorded Time 06/23/19 24 Fill and Pull/Voiding Trial/TOV completed Seth Bernard [facility] 06/23/2023 10:52:52 04/09/20 23 Bladder Scan completed Kelvin Daily [facility] 04/09/2023 12:26:26 04/09/20 23 Blood Draw/DRESSAGE JUDGE/PSA RESULTS completed Monik Richter [facility] 04/09/2023 12:45:33 09/24/19 14 Colonoscopy completed Konstantin Mendez [facility] 09/03/2023 11:12:59 Prostatectomy (turp) completed Not Available Health Note 09/02/2023 15:46:57 Imaging Results None recorded. Procedure Notes None recorded. Medical Equipment None Reported. Allergies Allergen ID Allergen Name Allergen Category Reaction Reaction Severity Criticality Documentation Date Start Date Code Code System Note Provider Name and Address Organization Details Recorded Time 735181 Sudafed medicatio n Not available Not available Not available 04/09/2023 25810 2 RxNorm Kelvin lewis [facility] 3 12:22:59 Medications Name Sig Start Date Stop Date Status Note LastModified by Organization Details LastModified Time compounde d medicatio n Inject 0.1-0.7 cc intracav ernosal as directed for sexual activity 2023 active Not Available Not Available Not Avai lable Trimix 30 papaverin e/1 phentolam ine/10 PGE-1 inject 0.1-0.7 cc intracav ernosal as directed PRN for sexual activity 2023 active Not Available Not Available Not Avai lable clobetaso l 0.05 % topical cream APPLY TO AFFECTED AREAS ON BODY 1-2 TIMES DAILY FOR TWO WEEKS WHEN FLARING. 12/06 /2023 completed Not Available Not Available Not Available levofloxa rual 250 mg tablet TAKE 1 TABLET (250 MG) BY MOUTH ONCE DAILY FOR 5 DAYS. 04/09 completed Not Available Not Available Not Available amlodipin e 5 mg tablet TAKE 1 TABLET (5 MG) BY MOUTH ONCE DAILY. active Not Available Not Available No t Available acetamino phen 500 mg tablet TAKE 1 TO 2 TABLETS BY MOUTH EVERY SIX HOURS NEEDED (MAX DAILY DOSE IS 3000MG) active Not Available Not Available No t Available simvastat in 40 mg tablet TAKE 1 TABLET (40 MG) BY MOUTH AT BEDTIME. 04/09 completed Not Available Not Available Not Available hydromorp opal 2 mg tablet TAKE 1 TO 2 TABLETS (2-4MG) BY MOUTH EVERY 6-8 HOURS. 1 TAB FOR MILD-MOD ERATE PAIN, 2 TABS FOR SEVERE PAIN. MAX DAILY DOSE IS 6 WEAN TOLERATE D 09/02 completed HN: Patient reports no longer taking Not Available Not Available Not Available glipizide ER 2.5 mg tablet, extended release 24 hr TAKE 1 TABLET (2.5 MG) BY MOUTH ONCE DAILY BEFORE A MEAL. active Not Available Not Available No t Available cephalexi n 500 mg capsule TAKE ONE CAPSULE BY MOUTH 2X DAILY FOR 5 DAYS WITH FOOD AND WATER 04/09 completed Not Available Not Available Not Available losartan 25 mg tablet TAKE 1 TABLET (25 MG) BY MOUTH ONCE DAILY. active Not Available Not Available No t Available lisinopri l 5 mg tablet TAKE TWO TABLETS (10MG) BY MOUTH ONCE DAILY 04/09 completed Not Available Not Available Not Available mupirocin 2 % topical ointment APPLY A THIN FILM TOPICALL Y TO SKIN TWICE DAILY. 04/09 completed Not Available Not Available Not Available metformin ER 500 mg tablet,ex tended release 24 hr TAKE 1 TABLET (500MG) BY MOUTH ONCE DAILY WITH EVENING MEAL. active Not Available Not Available No t Available rosuvasta tin 20 mg tablet TAKE 1 TABLET (20 MG) BY MOUTH AT BEDTIME. active Not Available Not Available No t Available Jardiance 10 mg tablet TAKE 1 TABLET (10 MG) BY MOUTH ONCE DAILY. 04/09 completed Not Available Not Available Not Available Vitals Date Recorded Body height Provider Name an d Address Organization Details Last Updated DateTime 06/23/2023 177.8 cm Seth Bernard [facility] 06/23/2023 10:10:03 Date Recorded Body mass index (BMI) Body weight Body height Provider Name and Address Organization Details Last Updated DateTime 09/03/2023 26.5 kg/m2 16364.74436 79957 g 180.34 cm Not Available Health Note 09/03/2023 11:09:31 Date Recorded Body height Body mass index (BMI) Body weight Provider Name and Address Organization Details Last Updated DateTime 04/09/2023 177.8 cm 26.5 kg/m2 22339.59 [facility] 12:22:44 Social History Question Answer Notes LastModified by Organizat ion Details LastModified Time Tobacco Smoking Status Never Smoker Not Available Health Note 09/02/2023 15:46:58 What Is Your Level Of Caffeine Consumption? Occasional [email or web address] Information not available 09/02/2023 How Much Tobacco Do You Chew? None [email or web address] Information not available 09/02/2023 What Was The Date Of Your Most Recent Tobacco Screening? 09/03/2023 [email or web address] Information not available 09/02/2023 Have You Ever Been Counseled For Unhealthy Alcohol Use? No Information not available 04/09/2023 What Is Your Relationship Status? [email or web address] Information not available 09/02/2023 Are You Sexually Active? No [email or web address] Information not available 09/02/2023 Has Tobacco Cessation Counseling Been Provided? No Information not available 04/09/2023 How Many Days In The Past Year Have You Consumed 5 Or More Drinks? 0 [email or web address] Information no t available 09/02/2023 Sex: Unknown Functional Status Question Answer Note LastModified by Organizat ion Details LastModified Time Do you use any illicit or recreational drugs? No [email or web address] Information not available 09/02/2023 Do you or have you ever used any other forms of tobacco or nicotine? No Information not available 04/09/2023 What is your level of alcohol consumption? None [email or web address] Information not available 09/03/2023 Do you or have you ever used smokeless tobacco? Never used smokeless tobacco [email or web address] Information not available 09/02/2023 Do you or have you ever used e-cigarettes or vape? Never used electronic cigarettes [email or web address] Information not available 09/02/2023 Mental Status None recorded. Family History Nothing Reported. Medical History Condition Response Diabetes Y Sexually Transmitted Infection N Bleeding Disorder N High Blood Pressure Y Kidney Stones N Cancer N Depression N Lung Disease N High Cholesterol Y GERD/Acid Reflux N Heart Disease N Past Encounters Encounter ID Performer Location Encounter Start Date Encounter Closed Date Diagnosis/Indication Diagnosis SNOMED-CT Code Diagnosis ICD10 Code Diagnosis Note [id number] MD Sarahy Kelley_[place] [address] [address] 04/09/2023 12:09:39 04/09/2023 12:41:50 Lower urinary tract symptoms due to benign prostatic hypertrophy 3137512038 9101 N40.1 Chronic ki dney disease stage 3 915383807 N18.30 Retention of urine 70324 4002 R33.9 [id number] MD Sarahy Kelley_[facility] [address] [address] 06/23/2023 10:05:13 06/23/2023 11:00:57 Lower urinary tract symptoms due to benign prostatic hypertrophy 5962733306 9101 N40.1 [id number] [facility] [address] [address] 09/03/2023 11:07:43 09/04/2023 07:54:08 Erectile dysfunction co-occurrent and due to arterial insufficiency 1312277899 14111 N52.03 Health Concerns Section Related Observation LastModified by Organization Detai ls LastModified Time None Recorded Concern Status LastModified by Organization Details LastModified Time None Recorded Advance Directives Directive None Recorded Payers Insurance Date Sequence Insurance Name Policy Number Policy Chicas Covered Member ID Chicas Member ID Guarantor Name 05/02/2023 2 UNSPECIFIED REMIT PAYOR Beau Allen 09/03/[address] [facility]: [place] [employer]UE - MEDICARE COST [id number] Braydon O Alejandro [id number] Beau Allen 04/30/2023 1 [facility] [id number] Braydon Allen [id number] Beau Allen 04/30/2023 2 MEDICARE B-[place]: [employer] [facility] Braydon Allen [id number] Beau Allen Notes Date Note Type Note Provider Name and Address Organization Details Recorded Time 3 text/html This is a 82 year old male who is referred by Dr. Garcia for the evaluation and management of benign prostatic hyperplasia with lower urinary tract symptoms and urinary retention. He has a known history of incomplete bladder emptying for which he was previously performing self-catheterization.He was only doing this about once per week and has since been re-initiated on this once daily for post-void residuals greater than 600 mL.He has a history of transurethral resection of prostate around 2004.He denies gross hematuria. He has erectile dysfunction.He has tried sildenafil 100 mg as needed without much improvement.He is interested in pursuing other treatment measures. Monik lewis [facility] 04/09/2023 12:46:22 4 text/html Erectile DysfunctionReported bypatient.Notes:83 y/o male presents for an evaluation of erectile dysfunction (ED). He reports difficulty with erections for the past 5 years. No preceding event he can associate to the development of ED. Gradual decline in erectile function since initial onset. He has tried Sildenafil and Tadalafil which have been ineffective. He has not tried any other treatments. He is interested in pursuit of penile injections. He is able to achieve an ehs of 1 with stimulation. No hx of pain or curvature to penis with erections. Good libido and energy for age. ANNALISA DUNCAN, [address], [place], [address], [facility] 09/03/2023 11:46:32
--- NOTE | 2024-11-22 21:51 | CRLHL7_ITS ---
For Patients: As a result of the Cures Act, medical imaging exams and procedure reports are released immediately into your electronic medical record. You may view this report before your referring provider. If you have questions, please contact your health care provider. Indication: Fall, mid femur pain Technique: Two views of the right knee, two views of the right femur Comparison: Knee radiographs performed 07/01/2019 Findings/Impression: Femur: Status post hip arthroplasty. No proximal fracture visualized. Knee: Status post knee arthroplasty. There is a severely comminuted and displaced periprosthetic fracture involving the mid to distal femoral diaphysis extending into the condyles. Dictated by Milton Hull MD @ 11/22/2024 11:00:12 PM (Electronically Signed)
--- NOTE | 2024-11-22 21:54 | ED.FALL ---
HPI - Fall General Date Seen: 11/22/24 Chief Complaint: Fall/Minor Trauma Stated Complaint: fall- leg fractur Time Seen by Provider: 11/22/24 21:42 Source: patient and EMS Mode of arrival: EMS Limitations: no limitations History of Present Illness HPI Narrative: Patient is a 84-year-old male with previous right knee replacement presenting to the emergency department via EMS after a fall. He is having right knee and right femur pain. He was walking down a single step when he caught his foot on the carpet and fell down on his right side onto the carpet. States he did not his head. Only pain at this time is right femur and knee pain. When EMS arrived he is in quite a bit of pain and they did give him some fentanyl for pain control and put him and traction splint for the leg. After that his pain was under control. He had no further pain complaints for them. He states there is no lightheadedness or dizziness before or after the fall. States he just tripped and went down. No other concerns noted. Denies any numbness to the lower extremity. Related Data Home Medications ?Medication ?Instructions ?Recorded ?Confirmed rosuvastatin 20 mg tablet 20 mg PO HS 05/16/23 06/28/24 ascorbic acid (vitamin C) 1,000 mg 1 g PO DAILY 07/16/23 06/28/24 capsule cholecalciferol (vitamin D3) 125 125 mcg PO DAILY 07/16/23 06/28/24 mcg (5,000 unit) capsule glipizide 2.5 mg tablet, extended 2.5 mg PO DAILY 07/16/23 06/28/24 release 24 hr omega 3-dja-tyv-fish oil 1,000 mg 1 cap PO DAILY 07/16/23 06/28/24 (120 mg-180 mg) capsule (Fish Oil) sildenafil 50 mg tablet (Viagra) 50 mg PO DAILY PRN 07/16/23 06/28/24 metoprolol succinate 25 mg 25 mg PO DAILY 06/28/24 06/28/24 tablet,extended release 24 hr olmesartan 40 mg tablet 40 mg PO DAILY 06/28/24 06/28/24 Previous Rx's ?Medication ?Instructions ?Recorded acetaminophen 500 mg capsule 500 - 1,000 mg (1 - 2 x 500 mg) PO 07/17/23 Q6H PRN #100 caps azithromycin 250 mg tablet See Rx Instructions PO .COMPLEX #6 06/28/24 tabs Allergies Allergy/AdvReac Type Severity Reaction Status Date / Time pseudoephedrine (From Allergy Intermediate unable to Verified 06/28/24 15:04 Sudafed) urinate cat dander Allergy Unknown Verified 06/28/24 15:04 oxycodone Allergy Unknown hallucinati Verified 06/28/24 15:04 ons adhesive Allergy Rash Verified 06/28/24 15:04 atorvastatin AdvReac Diarrhea Verified 06/28/24 15:04 Review of Systems Narrative: Pertinent systems reviewed and were negative unless stated in HPI PFSH [facility] Medical History Pneumonia due to severe acute respiratory syndrome coronavirus 2 (SARS-CoV-2) ?U07.1 - COVID-19 (ICD-10) ?J12.82 - Pneumonia due to coronavirus disease 2019 (ICD-10) Pain in both knees ?M25.561 - Pain in right knee (ICD-10) ?M25.562 - Pain in left knee (ICD-10) Hyponatremia ?E87.1 - Hypo-osmolality and hyponatremia (ICD-10) Fall ?W19.XXXA - Unspecified fall, initial encounter (ICD-10) Cholelithiasis with acute cholecystitis ?K80.00 - Calculus of gallbladder with acute cholecystitis without obstruction (ICD-10) Abdominal pain ?R10.9 - Unspecified abdominal pain (ICD-10) Traumatic tear of right rotator cuff ?S46.011A - Strain of muscle(s) and tendon(s) of the rotator cuff of right shoulder, initial encounter (ICD-10) MRSA infection ?A49.02 - Methicillin resistant Staphylococcus aureus infection, unspecified site (ICD-10) Arthritis ?M19.90 - Unspecified osteoarthritis, unspecified site (ICD-10) Type 2 diabetes mellitus ?E11.9 - Type 2 diabetes mellitus without complications (ICD-10) Myocardial infarction ?I21.9 - Acute myocardial infarction, unspecified (ICD-10) Hypertension ?I10 - Essential (primary) hypertension (ICD-10) Coronary artery disease ?I25.10 - Atherosclerotic heart disease of hughes coronary artery without angina pectoris (ICD-10) Surgical History 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) ?Z96.611 - Presence of right artificial shoulder joint (ICD-10) H/O arthroscopy of right knee (06/05/07) ?Z98.890 - Other specified postprocedural states (ICD-10) History of prostate surgery ?Z98.890 - Other specified postprocedural states (ICD-10) 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) ?Z96.651 - Presence of right artificial knee joint (ICD-10) H/O hernia repair (09/08/18) ?Z98.890 - Other specified postprocedural states (ICD-10) ?Z87.19 - Personal history of other diseases of the digestive system (ICD-10) History of cholecystectomy (08/17/17) ?Z90.49 - Acquired absence of other specified parts of digestive tract (ICD-10) H/O right coronary artery stent placement ?Z95.5 - Presence of coronary angioplasty implant and graft (ICD-10) History of right hip replacement (12/13/19) ?Z96.641 - Presence of right artificial hip joint (ICD-10) Social History Smoking Status: Never smoker How often do you have a drink containing alcohol: never AUDIT-C Alcohol total score: 0 Non-prescribed substance use: denies use Caffeine: Yes Exam Narrative: Exam Narrative: Const: Well-nourished, Well-developed, in moderate distress Eyes: PERRL, no conjunctival injection, and symmetrical lids HENT: Atraumatic external nose and ears. Moist mucous membranes. Neck: Symmetric, trachea midline, No thyromegaly. CVS: RRR, dorsalis pedis pulse 2+ and equal in all extremities RESP: Unlabored respiratory effort. Clear to auscultation bilaterally. GI: Nontender/Nondistended, No rebound or guarding. MSK:Extremities w/o deformity, decreased range of motion right lower extremity secondary to pain. Tenderness noted to the mid femur and brought the knee on the right side. No tenderness noted to ankle or hip. No tenderness noted to left lower extremity. No midline spinal tenderness. Skin: Warm, Dry. No rashes or lesions. Neuro: Normal Muscle tone, No focal neurological deficits. Psych: Awake, Alert, & Oriented x3. Appropriate mood and affect. Const: Vital Signs, click to edit/add: Vital Signs - 24 hr 11/22/24 21:51 11/22/24 22:28 11/22/24 22:30 Temperature 97.8 F Pulse Rate 68 69 Pulse Rate [Pulse Oximeter] 72 Respiratory Rate 18 16 Blood Pressure Blood Pressure [Ri ght Upper Arm] 223/111 H Pulse Oximetry 96 95 96 Oxygen Delivery Me thod Room Air 11/22/24 22:35 11/22/24 22:41 11/22/24 22:45 Temperature Pulse Rate 69 73 Pulse Rate [Pulse Oximeter] Respiratory Rate 16 Blood Pressure 203/103 H Blood Pressure [Ri ght Upper Arm] Pulse Oximetry 96 95 97 Oxygen Delivery Me thod Course Vital Signs Vital signs: Initial Vital Signs Temperature 97.8 F 11/22/24 21:51 Temperature Source Temporal Artery Scan 11/22/24 21:51 Pulse Rate 72 11/22/24 21:51 Respiratory Rate 18 11/22/24 21:51 Blood Pressure 223/111 H 11/22/24 21:51 Blood Pressure Mean 148 H 11/22/24 21:51 Blood Pressure Position Sitting 11/22/24 21:51 Pulse Oximetry 96 11/22/24 21:51 Oxygen Delivery Method Room Air 11/22/24 21:51 Vital Signs Temperature 97.8 F 11/22/24 21:51 Pulse Rate 72 11/22/24 21:51 Respiratory Rate 18 11/22/24 21:51 Blood Pressure 223/111 H 11/22/24 21:51 Pulse Oximetry 96 11/22/24 21:51 Oxygen Delivery Method Room Air 11/22/24 21:51 Temperature 98.1 F 11/22/24 23:22 Pulse Rate 79 11/22/24 23:22 Respiratory Rate 16 11/22/24 23:22 Blood Pressure 202/101 H 11/22/24 23:22 Pulse Oximetry 94 11/22/24 23:22 Oxygen Delivery Method Room Air 11/22/24 23:22 Medications Administered Medications: Discontinued Medications Generic Name Dose Route Start Last Admin Trade Name Freq PRN Reason Stop Dose Admin Fentanyl 50 mcg 11/22/24 22:03 11/22/24 22:09 Fentanyl 100 Mcg/2 Ml Inj IVP 11/22/24 22:04 50 mcg ONCE ONE Administration Fentanyl 50 mcg 11/22/24 23:12 11/22/24 23:28 Fentanyl 100 Mcg/2 Ml Inj IVP 11/22/24 23:13 50 mcg ONCE ONE Administration Lorazepam 0.5 mg 11/22/24 21:58 11/22/24 23:30 Lorazepam 0.5 Mg Tablet PO 11/22/24 21:59 0.5 mg ONCE ONE Administration MDM - Fall MDM Narrative Medical decision making narrative: Patient is a 84-year-old male presenting to the emergency department after a fall. Is having pain to the right femur and knee. No pain to the groin or hip. Will still x-ray of pelvis along with the right femur and knee. No other imaging necessary at this time is he is having no further pain. Sounds like it is a mechanical fall and will just do basic lab work likely admission. Is adamant he did not hit his head. He does states feeling very anxious and is hard for him to relax. X-ray of the femur and knee was done showing a severely comminuted periprosthetic fracture. I throughout hip x-ray after is already on the table and the tech did not see it. I do not believe is necessary to put him through the struggle of moving the back to the table considering he is not actually having any hip pain. Is adamant he did not his head is not having any chest or abdomen pain so I do not believe CT scans are necessary. I did speak to the on-call ortho PA who recommends transfer. I spoke to [facility] who accepted him for transfer. Spoke to Dr. Garcia from [facility] ED accepted him for transfer. Patient family are agreeable to this plan. Fentanyl given as needed for pain control. No signs of compartment syndrome at this time. Neurovascular intact. Lab Data Labs: Lab Results 11/22/24 Range/Units 22:25 WBC 9.57 (4.50-11.00) K/uL RBC 4.29 L (4.30-5.90) m/uL Hgb 13.4 L (13.5-17.5) gm/dL Hct 39.3 (37.0-53.0) % MCV 92 (80-100) fL MCH 31 (26-34) pg MCHC 34 (32-36) gm/dL RDW Coeff of Jose Antonio 12.1 (11.5-15.5) % Plt Count 157 (140-440) K/uL Neut % (Auto) 68.7 (42.0-72.0) % Lymph % (Auto) 16.4 L (20-44) % [place] % (Auto) 11.1 H (0.0-11.0) % Eos % (Auto) 2.8 (0.0-7.0) % Baso % (Auto) 0.3 (0.0-3.0) % Neut # (Auto) 6.57 (1.7-7.0) K/uL Lymph # (Auto) 1.60 (0.90-2.90) K/uL [place] # (Auto) 1.10 H (0.00-0.90) K/UL Eos # (Auto) 0.27 (0.00-0.50) K/uL Baso # (Auto) 0.03 (0.00-0.30) K/uL Abs Immat Gran (auto) 0.07 (0.00-0.30) K/uL Imm/Tot Granulo (auto) 0.7 % Sodium 135 (135-149) mmol/L Potassium 4.2 (3.6-5.1) mmol/L Chloride 104 (96-114) mmol/L Carbon Dioxide 24 (20-32) mmol/L Anion Gap 7 (7-15) mEq/L BUN 48 H (7-30) mg/dL Creatinine 2.6 H (0.5-1.5) mg/dL Estimated Creat Clear 21.45 Estimated GFR 23 ml/min Glucose 211 H (60-115) mg/dL Calcium 10.2 (8.4-10.6) mg/dL Imaging Data X-ray femur and knee right: Attestation: I have reviewed the pertinent imaging results. Radiologist's impression: Femur: Status post hip arthroplasty. No proximal fracture visualized. Knee: Status post knee arthroplasty. There is a severely comminuted and displaced periprosthetic fracture involving the mid to distal femoral diaphysis extending into the condyles. Dictated by Milton Hull MD @ 11/22/2024 10:59:46 PM Discharge Plan Discharge Clinical Impression: Fracture of distal end of femur Patient Disposition: [facility] Condition: Stable
[2024-11-22 22:42] LABS: Hematocrit 39.3 % (37.0-53.0); Hemoglobin* 13.4 gm/dL (13.5-17.5); Immature Granulocytes Abs Auto 0.07 K/uL (0.00-0.30); Immature Granulocytes Pct Auto 0.7 %; Mean Corpuscular HGB Conc 34 gm/dL (32-36); Mean Corpuscular Hemoglobin 31 pg (26-34); Mean Corpuscular Volume 92 fL (80-100); RDW Coefficient of Variation % 12.1 % (11.5-15.5); Red Blood Count 4.29 m/uL (4.30-5.90); White Blood Count* 9.57 K/uL (4.50-11.00)
[2024-11-22 22:46] LABS: Chloride* 104 mmol/L (96-114); Potassium* 4.2 mmol/L (3.6-5.1); Sodium* 135 mmol/L (135-149)
[2024-11-22 22:47] LABS: Lymphocytes Absolute Auto 1.60 K/uL (0.90-2.90); Slide Review Reflex No
[2024-11-22 22:49] LABS: Anion Gap 7 mEq/L (7-15); Blood Urea Nitrogen* 48 mg/dL (7-30); Calcium* 10.2 mg/dL (8.4-10.6); Carbon Dioxide* 24 mmol/L (20-32); Creatinine* 2.6 mg/dL (0.5-1.5); Est. Creatinine Clearance* 21.45; Estimated Glomerular Filt Rate 23 ml/min; Glucose* 211 mg/dL (60-115)
== END 2024-11-22 23:46 | disposition short-term general hospital (02) ==
PROVIDERS: Emergency Provider Student in an Organized Health Care Education/Training Program; PCP Family Medicine
DX: S72.401A Unspecified fracture of lower end of right femur, initial encounter for closed fracture (principal); Z47.1 Aftercare following joint replacement surgery; W19.XXXA Unspecified fall, initial encounter
CPT/HCPCS: 36415; 73552; 73560; 80048; 85025; 94761; 99285; A9270; J3010

== ENCOUNTER 2024-11-22 23:22 | Outpatient (CLI) | payer MEDICARE, BC, SELFPAY | END 2024-11-22 23:23 | disposition home or self-care (01) | PROVIDERS: PCP Family Medicine; Visit Provider Emergency Medicine Emergency Medical Services | DX: S72.401A Unspecified fracture of lower end of right femur, initial encounter for closed fracture (principal) | CPT/HCPCS: A0425; A0427 ==

== ENCOUNTER 2024-12-07 18:42 | Outpatient (REF) | payer MEDICARE, BC, SELFPAY ==
--- OUTSIDE RECORDS SUMMARY | 2024-11-08 10:30 | XMS_ITS | Encounter Summary ---
Author Organization [facility] Address [address] [place] [address] Care Team Providers Care Candy Maker Helper Name Role Phone Lisandro Garcia MD Primary Care Provider [phone] Reason for Visit * Reason Comments Follow-up Encounter Details Date Type Department Care Team (Late st Contact Info) Description 11/08/2024 10:30 AM CDT [facility] Visit [facility] [address] [place] [address] Solitario Garcia MD [address] [place] [address] Chronic kidney disease stage 4 (HCC) (Primary Dx); Hypertensive chronic kidney disease with stage 1 through stage 4 chronic kidney disease, or unspecified chronic kidney disease; Proteinuria, not otherwise specified; Coronary arteriosclerosis, not otherwise specified; Other hyperlipidemia; Lower urinary tract symptoms due to benign prostatic hypertrophy; Type 2 diabetes mellitus with diabetic chronic kidney disease (HCC) Social History Tobacco Use Types Packs/Day Years Used Date Smoking Tobacco: Never Smokeless Tobacco: Never Alcohol Use Standard Drinks/Week Comments Yes 0 (1 standard drink = 0.6 oz pur e alcohol) rare wine Sex and Gender Information Value Date Recorded Sex Assigned at Not on file Legal Sex Male 11:36 AM EST Gender Identity Not on file Sexual Orientation Not on file documented as of this encounter Last Filed Vital Signs Vital Sign Reading Time Taken Comments Blood Pressure 138/68 11/08/2024 10:18 AM CDT Pulse 62 11/08/2024 10:18 AM CDT Temperature - - Respiratory Rate - - Oxygen Saturation 96% 11/08/2024 10:18 AM CDT Inhaled Oxygen Concentration - - Weight 88.5 kg (195 lb) 11/08/2024 10:18 AM CDT Height 179.1 cm (5' 10.5) 11/08/2024 10:18 AM C DT Body Mass Index 27.58 11/08/2024 10:18 AM CDT documented in this encounter Patient Instructions * Patient Instructions* Rose Topete - 11/08/2024 10:30 AM CDT Braydon, Your kidney function is stable. Your blood pressure is improved. Your leg swelling is gone! This is all good news! We will re-test the kidney function and the protein in your urine in 6 months and discuss that Jardiance and Farxiga again at that time. Femi Garcia MD We will contact you to schedule your 6 month follow up when the schedule becomes available. Labs should be completed 1-2 weeks prior. They will be faxed to [facility] documented in this encounter Progress Notes * Solitario Garcia MD - 11/08/2024 10:30 AM CDT Images from the original note were not included. Patient: Braydon lAlen Date of : 1940 Chart: [id number] PCP: Lisandro Garcia MD Date of Service: 11/08/2024 Chief Complaint: CKD Stage 4 Subjective: The patient's is also present for the visit today and contributes to the following history. He is here for follow-up for CKD stage 4. He is tolerating metoprolol and olmesartan. He is following a low sodium diet. His BP has improved to 130's/60's and his edema has resolved. He is pleased with this. He has no new symptoms including no chest pain, SOB, orthopnea, fatigue, or any side effects from BP therapy. His lipids were at goaland A1C was 7.2% at PCP appointment. His Cr is stable. He still would like to wait on considering SGLT2i therapy. From initial consult May 2024 Braydon has hx of longstanding CKD thought 2/2 DM, HTN, and obstruction. His Cr trend has been 1.1-1.2from 0721-0406; 1.1-1.6 from 9451-8710 -> 2.0 on 02/10/23 and now 1.9-2.3 and stable since havinga TURP in Jun 2023 by Urology. He has longstanding DM, initially diet controlled, now on glipizide.HE has longstanding HTN, not well controlled consistently and not controlled currently. He had BPH w ith LUTS and required tolentino placement for massive bladder distention years ago, then straight cath for years but did it infrequently and renal u/s showed hydronephrosis in 2021. He now had a TURP anddoes not straight cath anymore. He has not been back to Urology or had a PVR since but is urinatingbetter he and his report. He will never go back to that Urologist he says. HE recently was changed from losartan to olmesartan and then in April it was increased to 40mg. His BP is 150's systolic. He doesn't check frequently at home. He has hx of heart attach and had PCI in distant past. He used to be on a beta daniel but he stopped all his meds for a couple years when his (he is now remarried) and it was never re-started he thinks. He feels well today. Since stopping amlodipine, swelling in his legs is much improved and now very mild. He has no chest pain/pressure and noSOB and he remains quite active. He tells me today that he has a significant distrust in the medical system and in doctors. He is careful to state that he doesn't want to offend me and that he would like to continue to see me and get help for his kidneys, but wants to be honest that he does not always follow what a doctor says and there are limitations in what he is willing to do and changes thathe will make (diet, meds, etc). We agreed to do basic work-up and re-start a beta daniel today butnot make other changes and continue to see each other and hopefully I can gain his trust and help him slow progression of chronic kidney disease which is our shared goal. 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 recently one in [facility] They have a condo in [facility] and a townhome in [place] where they split time He is re-, has been for 2 years, from his first The following portions of the patient's chart were reviewed in this encounter and updated as appropriate: Tobacco Allergies Meds Problems Med Hx Surg Hx Fam Hx Active Problems Patient Active Problem List Diagnosis Hypertensive chronic kidney disease with stage 1 through stage 4 chronic kidney disease, or unspecified chronic kidney disease Chronic kidney disease stage 4 (HCC) Proteinuria Type 2 diabetes mellitus with diabetic chronic kidney disease (HCC) Bilateral lower limb edema Coronary arteriosclerosis Coronary arteriosclerosis Erectile dysfunction Hyperlipidemia Lower urinary tract symptoms due to benign prostatic hypertrophy Mass of pancreas Retention of urine Review of Systems Patient denies chest pain, SOB at rest, nausea/vomiting, and fever/chills. Taking? Provider LT ascorbic acid (VITAMIN C) 1000 MG tablet Ramsey Mccarthy MD Take 1,000 mg by mouth in the morning. cholecalciferol (VITAMIN D-3) 250 MCG (47549 UT) capsule Ramsey Mccarthy MD Take 125 mcg by mouth 1 (one) time each day Coenzyme Q10 400 MG capsule Ramsey Mccarthy MD Take by mouth glipiZIDE (GLUCOTROL XL) 2.5 MG 24 hr tablet Ramsey Mccarthy MD Take 2.5 mg by mouth in the morning. metoprolol succinate XL (Toprol XL) 25 MG 24 hr tablet Solitario Garcia MD Take 1 tablet (25 mg total) by mouth 1 (one) time each day Do not crush or chew. MULTIPLE VITAMIN PO Ramsey Mccarthy MD Take by mouth olmesartan (BENICAR) 40 MG tablet Ramsey Mccarthy MD Take 20 mg by mouth 1 (one) time each day [place] 3 1000 MG capsule Ramsey Mccarthy MD Take 1 capsule by mouth in the morning. rosuvastatin (CRESTOR) 10 MG tablet Ramsey Mccarthy MD Take 10 mg by mouth in the morning. Vitamin E 180 MG (400 UNIT) capsule Ramsey Mccarthy MD Take by mouth Zinc 50 MG tablet Ramsey Mccarthy MD Take 50 mg by mouth in the morning. Allergies Allergen Reactions Atorvastatin Diarrhea Lisinopril Diarrhea Other Oxycodone Other (see comments) Pt reported Pseudoephedrine Other (see comments) Adhesive Tape Rash Physical Exam BP 138/68 (BP Location: Right upper arm, Patient Position: Sitting, BP Cuff Size: Adult) Pulse 62 Ht 5' 10.5 (1.791 m) Wt 195 lb (88.5 kg) SpO2 96% BMI 27.58 kg/m?? CONSTITUTIONAL: appears well today and in NAD EYES: pupils equal, sclerae not icteric. RESPIRATORY: Clear to auscultation bilaterally, nl effort CARDIOVASCULAR: Regular rate and rhythm, no murmurs. no LE edema (improved!) GASTROINTESTINAL: not distended PSYCHIATRIC: Alert and pleasant INTEGUMENT: No visible rash on exposed skin Chemistry and Bone Mineral Lab Units 10/18/24 0000 10/12/24 1100 05/20/24 1159 04/13/24 0000 09/22/23 1344 09/22/23 0000 07/08/23 1056 06/26/23 1505 06/21/23 0641 06/20/23 1602 05/23/23 0821 05/23/23 0000 03/20/23 1421 SODIUM mEq/L 137 -- 140 140 143 143 139 140 135* 140 140 < > 139 POTASSIUM mEq/L 4.5 -- 4.5 4.5 4.4 4.4 4.6 4.8 4.5 4.1 4.4 < > 4.9 CHLORIDE 105 -- 106 110 108* 108* 104 103 105 107 103 < > 103 CO2 mmol/L 23 -- 22 20 25 25 24 25 20* 22 22 < > 25 ANION GAP -- -- -- -- 10 -- 11 12 10 11 15 -- 11 CALCIUM mg/dL 9.6 -- 9.3 9.1 9.4 9.4 9.6 9.6 8.9 9.2 10.1 < > 9.8 PHOSPHORUS mg/dL 3.4 -- 3.4 -- -- -- -- -- -- -- -- -- 3.6 PTH pg/mL -- -- 49 -- -- -- -- -- -- -- -- -- -- VIT D 25 HYDROXY ng/mL -- -- 61 -- -- -- -- -- -- -- -- -- -- GLUCOSE mg/dL 196* -- 227* 218* 189* 189* 311* 278* 164* 121* 127* < > 245* ALBUMIN g/dL 3.8 -- 3.7 -- -- -- -- -- -- -- -- -- 3.9* BUN mg/dL 48* -- 42* 45* 34* 34* 39* 43* 43* 38* 47* < > 42* CREATININE mg/dL 2.40* -- 2.38* 2.25* 1.94* 1.94* 2.15* 2.36* 2.32* 2.09* 2.17* < > 2* EGFR 26* -- 26* 19* 28* 34* 34* 30* 26* 27* 31* 29* < > 33* HEMOGLOBIN A1C % OF TOTAL HGB -- 7.3* -- -- -- -- -- -- -- -- -- -- -- < > = values in this interval not displayed. CBC and Iron Studies Lab Units 10/18/24 0000 05/20/24 1159 06/26/23 0000 06/05/23 0000 HEMOGLOBIN g/dL 13.0* 12.4* 12.2* 12.3* MCV fL -- -- 92 92 No lab exists for component: GLUCOSEUR, BILIRUBINUR, SPECGRAV, RBCUR, LEUKOCYTESUR, NITRITE Imaging: Renal Ultrasound 04/03/2023: 1. Echogenic appearance to right and left renal cortex, indicating chronic medical renal disease. 2. Indeterminate poorly visualized cyst at midpole left kidney, estimated size 2.3 cm. Consider dedicated renal mass CT without and with IV contrast if renal function allows. If no IV contrast can beutilized due to poor renal function, noncontrast image MRI would be helpful. 3. Benign-appearing cysts at lower pole right kidney, size 8 mm. 4. Markedly distended bladder prevoid and postvoid. No hydronephrosis. Correlate with any clinical history or prior imaging of enlarged prostate gland. Renal Ultrasound 11/21/2021: Mild right hydronephrosis may be present. Mild bilateral renal cortical thinning suggesting intrinsic renal disease. Large postvoid residual bladder volume. TTE 10/24/2020: Final Impressions: 1. Technically limited exam. 2. Normal LV size, normal wall thickness, normal global systolic function with an estimated EF of 60 - 65%. 3. Possible hypokineis of the very apex (not well visualized). 4. Right ventricular cavity size is normal, global systolic RV function is normal. Renal Ultrasound 05/28/2024: FINDINGS: Simple cyst left kidney measures 2.5 x 2.1 x 1.8 cm. There is no evidence of hydronephrosis, solid mass or calculus. The right kidney measures 9.5cm in length and the left kidney measures 9.6cm in length. The renal cortex measures 1.1 cm on the right and 1.2 cm on the left. Prevoid bladder volume 715 cc. Postvoid bladder volume 509 cc. Residual volume is 70 percent. ColorDoppler images reveal a normal appearance of both ureteral jets. IMPRESSION: No hydronephrosis. Large postvoid residual bladder volume. Incidental simple left renal cyst. Assessment and Plan: CKD Stage 4 - eGFR 22 with combined CysC and Cr equation. Cr stable this visit T2DM with diabetic nephropathy Proteinuria, persistent, sub-nephrotic but >1 g/g Hypertensive CKD - BP not at goal but improving Obstructive uropathy with BPH, hx of LIN with tolentino, now s/p TURP in Jun 2023. No hydronephrosis Developed now advanced CKD and in stage 4 and this was discussed with he and his . He had negative monoclonal studies previously. CKD is 2/2 DM, HTN, and obstructive uropathy (which he went for some time doing infrequent straight cath and had hydronephrosis, likely large contributor to CKD development). Fortunately he has now undergone TURP with improved urination but he does not plan to f/u with Urology -> renal u/s 05/2024 without hydro despite high PVR. -Discussed stage of CKD, ways to lower risk of progression of CKD, importance of good DM control (achieved) and BP control (not achieved) and benefit to ARB (on olmesartan) and SGLT2i (not on). -Previously discussed KFRE, risk of ESRD at 5 years currently estimated at 45% -BP control improving and he is tolerating Toprol XL at 25mg daily. Chose metoprolol given benefitsto heart (hx of NSTEMI/PCI) and has tolerated beta daniel in past. Had edema with CCB. -BP near goal, iimproved significantly with current BP therapy and lifestyle measures -Will consider SGLT2i again next visit and will re-test urine albumin to see if improved further. If remains >1 gram especially, I think SGLT2i would be highly beneficial -He will continue home BP monitoring -Continue low salt diet, discussed again today CAD with hx of NSTEMI and PCI HL - continue statin Continue beta daniel, ARB, ASA, statin. Would benefit from SGLTI2 as well, but he would like to wait for now on this as discussed above. Return in about 6 months (around 05/11/2025) for follow-up with . Solitario Garcia MD [facility] documented in this encounter Plan of Treatment Scheduled Orders Name Type Priority Associated Diagnoses Orde r Schedule Renal function panel Lab Routine Chronic kidney disease stage 4 (HCC) Expected: 04/04/2025 (Approximate), Expires: 11/08/2025 Urine Albumin / Creatinine Ratio Lab Routine Chronic kidney disease stage 4 (HCC) Expected: 04/04/2025 (Approximate), Expires: 11/08/2025 documented as of this encounter Visit Diagnoses Diagnosis Chronic kidney disease stage 4 (HCC)- Primary Hypertensive chronic kidney disease with stage 1 through stage 4 chronic kidney disease, or unspecified chronic kidney disease Proteinuria, not otherwise specified Coronary arteriosclerosis, not otherwise specified Other hyperlipidemia Lower urinary tract symptoms due to benign prostatic hypertrophy Type 2 diabetes mellitus with diabetic chronic kidney disease (HCC) documented in this encounter Care Teams Candy Maker Helper Relationship Specialty Start Date End Date Lisandro Garcia MD [address] [place] [address] PCP - General Family Medicine 05/11/24 documented as of this encounter
[2024-12-07 18:54] LABS: Appearance Urine Clear (Clear)
--- OUTSIDE RECORDS SUMMARY | 2024-12-08 00:18 | XMS_ITS | Encounter Summary ---
Author Organization [facility] Address [address] [place] [address] Care Team Providers Care Ladle Filler Name Role Phone Lisandro Garcia MD Primary Care Provider [phone] Encounter Details Date Type Department Care Team (Late st Contact Info) Description 10/20/2024 Results Follow-Up [facility] [address] [place] [address] Stacey Wu, RN [address] [place] [address] Social History Tobacco Use Types [...] on filedocumented in this encounter Care Teams Ladle Filler Relationship Specialty Start Date End Date Lisandro Garcia MD [address] [place] [address] PCP - General Family Medicine 05/11/24 documented as of this encounter
--- OUTSIDE RECORDS SUMMARY | 2024-12-08 00:18 | XMS_ITS | Clinical Summary ---
Author Organization [facility] Address [address] [place] [id number] Care Team Providers Care Statistical Reporting Analyst Name Role Phone Lisandro Garcia MD [...] than 300cc 100 Each 6 3 Active Eezkz-1-WET-EPA-Fis h Oil (Fish OiL) 1,000 mg (120 [...] stage 3 chronic kidney disease, unspecified whether nursing home insulin use, unspecified whether stage 3a or 3b CKD 09/09/2022 Urinary retention 12/19/2021 Positive for macroalbuminuria 12/19/2021 Erectile dysfunction 11/14/2021 Pancreatic mass 09/07/2018 Overview (09/07/2018): Cystic mass in Pancreas noted on CT at [facility] in 05/2018. Pancreatic MRI recommend to follow up on this area in 05/2019. Essential hypertension 08/31/2018 CAD: SETH to diag 01/200508/16/2017 Overview (11/26/2019): He had a stent placed in the diagonal branch of his left anterior descending artery on 01/03/2005 at [facility]. Type 2 diabetes mellitus wit hout [...] Encounters Date Type Department Care Team Description 12/06/2024 Lab Requisition [facility] [phone] Elisa Inman NP 11/22/2024 Orders Only [facility] Scanner 1 scan: (1-Ord) [facility], XR FEMUR RT 2V, 11/22/2024 11/22/2024 Orders Only [facility] Scanner 1 scan: (1-Ord) [facility], XR KNEE RT 2V, 11/22/2024 10/18/2024 2:00 PM CDT Orders Only [facility] [address] [facility] [place] [address] [place], [place] [facility] 10/18/2024 Travel 10/12/2024 10:30 AM CDT Office Visit [facility] [address] [place] [address] Lisandro Garcia MD Diabetes (6 month follow up) 10/12/2024 Travel 09/20/2024 11:00 AM CDT Orders Only [facility] [address] [facility] [place] [address] [place], [place] [facility] 09/20/2024 Travel from Last 3 Months Immunizations Immunization Administration [...] on file Legal Sex 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 Gender Identity Not on file Sexual Orientation Not on file 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 on file Not on file Not on file Obstetrics History Last Filed Vital Signs Vital Sign Reading Time Taken Comments Blood Pressure 138/65 10/12/2024 10:42 AM CDT Pulse 62 10/12/2024 10:36 AM CDT Temperature 36.7 C (98 F) 06/21/2023 7:52 AM CURATOR OF PHOTOGRAPHY AND [employer]INTS Respiratory Rate 16 06/21/2023 7:52 AM CURATOR OF PHOTOGRAPHY [employer]INTS Oxygen Saturation 95% 10/12/2024 10: 36 AM [...] 75+ series) 2014 COVID-19 vaccine series ( season) 2024 Medicare Wellness for age 65+ 02/14/2024 02/13/2023, 04/18/2017 Depression screening for age 12+ 02/16/2024 02/15/2023, 02/13/2023, 02/13/2023, Additional history exists Influenza Vaccine (#1) 2025 BMI (ht and wt on same day) for age 18+ 10/12/2025 10/12/2024, 07/08/2023, 06/26/2023, Additional history exists Hepatitis B series for 19+ Completed 12/05, 07/13/2001, 04/01/2000 Procedures Procedure Name Priority Date/Time Associated Diagnosis Comments CBC WITH AUTO DIFFERENTIAL Routine 12/07/2024 10:09 AM CDT Encounter for other specified surgical aftercare BASIC METABOLIC PANEL Routine 12/07/2024 10:09 AM CDT Encounter for other specified surgical aftercare CBC WITH AUTO DIFFERENTIAL Routine 12/07/2024 10:09 AM CDT Encounter for other specified surgical aftercare SCAN-RADIOLOGY REPORT 11/22/2024 12:00 AM CDT SCAN-RADIOLOGY REPORT 11/22/2024 12:00 AM CDT HEMOGLOBIN A1C MONITORING (POCT) Routine 10/12/2024 11:00 AM CDT Type 2 diabetes mellitus without complication, without long-term current use of insulin (HC) BASIC METABOLIC PANEL Routine 09/20/2024 11:41 AM CDT Benign essential HTN from Last 3 Months Results * (ABNORMAL) CBC WITH AUTO DIFFERENTIAL (12/07/2024 10:09 AM CDT) [facility] WHITE BLOOD COUNT 12.1(H) 4.5 - 11.0 thou/cu mm 12/07/2024 12:13 PM CDT [facility] RED BLOOD COUNT 2.85(L) 4.30 - 5.90 mil/cu mm 12/07/2024 12:13 PM CDT [facility] HEMOGLOBIN 9.0(L) 13.5 - 17.5 g/dL 12/07/2024 12:13 PM CDT [facility] HEMATOCRIT 27.0(L) 37.0 - 53.0 % 12/07/2024 12:13 PM CDT [facility] MCV 95 80 - 100 fL 12/07/2024 12:13 PM CDT [facility] MCH 31.6 26.0 - 34.0 pg 12/07/2024 12:13 PM CDT [facility] MCHC 33.3 32.0 - 36.0 g/dL 12/07/2024 12:13 PM CDT [facility] RDW 13.4 11.5 - 15.5 % 12/07/2024 12:13 PM CDT [facility] PLATELET COUNT 322 140 - 440 thou/cu mm 12/07/2024 12:13 PM CDT [facility] MPV 9.0 6.5 - 11.0 fL 12/07/2024 12:13 PM CDT [facility] NRBC 0.0 % 12/07/2024 12:13 PM CDT [facility] ABS NRBC 0.0 thou /cu mm 12/07/2024 12:13 PM CDT [facility] % NEUT 77.0 % 12/07/2024 12:13 PM CDT [facility] % LYMPH 8.9 % 12/07/2024 12:13 PM CDT [facility] % MONO 9.5 % 12/07/2024 12:13 PM CDT [facility] % EOS 3.7 % 12/07/2024 12:13 PM CDT [facility] % BASO 0.4 % 12/07/2024 12:13 PM CDT [facility] % IMMATURE GRAN (METAS,MYELOS,WA OS) 0.5 % 12/07/2024 12:13 PM CDT [facility] ABSOLUTE NEUTROPHILS 9.3(H) 1.7 - 7.0 thou/cu mm 12/07/2024 12:13 PM CDT [facility] ABSOLUTE LYMPHOCYTES 1.1 0.9 - 2.9 thou/cu mm 12/07/2024 12:13 PM CDT [facility] ABSOLUTE MONOCYTES 1.1(H) <0.9 thou/cu mm 12/07/2024 12:13 PM CDT [facility] ABSOLUTE EOSINOPHILS 0.4 <0.5 thou/cu mm 12/07/2024 12:13 PM CDT [facility] ABSOLUTE BASOPHILS 0.1 <0.3 thou/cu mm 12/07/2024 12:13 PM CDT [facility] ABSOLUTE IMMATURE GRANULOCYTES(MET ,MYELOS,PROS) 0.1 <0.3 thou/cu mm 12/07/2024 12:13 PM CDT [facility] Blood BLOOD SPECIMEN / Unknown Venipuncture / Unknown 12/07/2024 10:09 AM CDT 12/07/2024 11:50 AM CDT us Elisa Inman NP HEMATOLOGY Final Resul t [facility] [address] [place] [address] * (ABNORMAL) BASIC METABOLIC PANEL (12/07/2024 10:09 AM CDT) Only the most recent of2 resultswithin the time period is included. SODIUM 134(L) 136 - 145 mmol/L 12/07/2024 12:58 PM T [facility] POTASSIUM 4.9 3.5 - 5.1 mmol/L 12/07/2024 12:58 PM T [facility] CHLORIDE 101 98 - 107 mmol/L 12/07/2024 12:58 PM T [facility] CO2,TOTAL 22 22 - 29 mmol/L 12/07/2024 12:58 PM [facility] ANION GAP 11 5 - 18 12/07/2024 12:58 PM [facility] GLUCOSE 189(H) 70 - 99 mg/dL 12/07/2024 12:58 PM [facility] CALCIUM 9.3 8.8 - 10.4 mg/dL 12/07/2024 12:58 PM [facility] Comment: Reference ranges for this test were updated on 03/09/2024 to reflect our healthy population more accurately. Reference range changes are not retroactively applied to results, but previous results using the same methodology can be interpreted in the context of the new reference range. BUN 44(H) 8 - 23 mg/dL 12/07/2024 12:58 PM [facility] CREATININE 2.71(H) 0.70 - 1.20 mg/dL 12/07/2024 12:58 PM [facility] BUN/CREAT RATIO 16 10 - 20 12:58 PM [facility] eGFR 22(L) >90 mL/min/1. 73m2 12/07/2024 12:58 PM [facility] Comment:As of 2021, eG FR is calculated by the CKD-EPI creatinine equation without race adjustment. eGFR can be influenced by muscle mass, exercise, and diet. The reported eGFR is an estimation only and is only applicable if the renal function is stable. Blood BLOOD SPECIMEN / Unknown Venipuncture / Unknown 12/07/2024 10:09 AM CDT 12/07/2024 11:50 AM CDT us Elisa Inman NP CHEMISTRY Final Resul t Performing Organization Address City/[facility] Co de Phone Number [place] [address] [place] [address] * SCAN-RADIOLOGY REPORT (11/22/2024 12:00 AM CDT) Only the most recent of2 resultswithin the time period is included. Anatomical Region Laterality Modality Other us Scanner OTHER Final Result * (ABNORMAL) HEMOGLOBIN A1C MONITORING (POCT) (10/12/2024 11:00 AM CDT) POC HEMOGLOBIN A1C 7.3(H) <6.0 % OF TOTAL HGB [facility] Comment: Any point of care results exhibiting inconsistency with the patient's clinical status should be repeated using a different testing method. Blood BLOOD SPECIMEN / Unknown 10/12/2024 11:00 AM CDT 10/12/2024 11:01 AM CDT us Lisandro Garcia MD CHEMISTRY Final Result Performing Organization Address [facility] Co de Phone Number [facility] [address] [place] [address], [facility] [address] [place] [address] from Last 3 Months Insurance MEDICARE PART A HB ONLY MEDICARE PART B HB ONLY [employer] [place] BLUE MR PB ONLY [employer] [place] [place] BLUE HB ONLY [place] MEDICARE PPS [employer] INS Advance Directives * Full Code (Latest Code Status on File) Date Activated Date Inactivated Comments 06/20/2023 5:38 AM 06/21/2023 2:00 PM Should be di scussed pre operatively with anesthesia or surgeon Question Answer Comments Code Status Discussion: Not Discussed * Full Code Date Activated Date Inactivated Comments 01/03/2005 10:10 PM 01/05/2005 1:47 PM Care Teams Statistical Reporting Analyst Relationship Specialty Start Date End Date Lisandro Garcia MD [address] [place] [address] PCP - General Family Practice 09/08/20
--- OUTSIDE RECORDS SUMMARY | 2024-12-08 00:18 | XMS_ITS | Clinical Summary ---
Author Organization [facility] [place] Address [address] [place] [address] Phone Care Team Providers Care Replanting Machine Operator Name Role Phone Lisandro Garcia MD Primary Care Provider [phone] Allergies Active Allergy Reactions Criticality Noted Date Comments Adhesive Tape Rash Low 09/02/2018 Atorvastatin Diarrhea High 11/22/2021 Lisinopril Diarrhea 02/13/2023 Other 05/13/2024 Oxycodone Other (see comments) 08/20/2017 Pt reported Pseudoephedrine Other (see comments) 05/13/2024 Medications ascorbic acid (VITAMIN C) 1000 MG tablet Take 1,000 mg by mouth in the morning. Active cholecalciferol (VITAMIN D-3) 250 MCG (59945 UT) capsule Take 125 mcg by mouth 1 (one) time each day Active glipiZIDE (GLUCOTROL XL) 2.5 MG 24 hr tablet Take 2.5 mg by mouth in the morning. 04/13/2024 Active olmesartan (BENICAR) 40 MG tablet Take 20 mg by mouth 1 (one) time each day 05/11/2024 Active [place] 3 1000 MG capsule Take 1 capsule by mouth in the morning. Active rosuvastatin (CRESTOR) 10 MG tablet Take 10 mg by mouth in the morning. 04/13/2024 Active Zinc 50 MG tablet Take 50 [...] not crush or chew. 30 tablet 11 05/14/2024 Active Active Problems Problem Noted Date Diagnosed [...] mass in Pancreas noted on CT at [facility] in 05/2018. Pancreatic MRI recommend to follow up on this area in 05/2019. Hypertensive chronic kidney disease with stage 1 through stage 4 chronic kidney disease, or unspecified chronic kidney disease 08/31/2018 Coronary arteriosclerosis 08/16/2017 Overview (05/14/2024): He had a stent placed in the diagonal branch of his left anterior descending artery on 01/03/2005 at . Hyperlipidemia 05/18/2012 Encounters Date Type Department Care Team Description 11/08/2024 10:30 AM CDT Office Visit [facility] [address] [place] [address] Solitario Garcia MD Chronic kidney disease [...] 10/20/2024 Results Follow-Up [facility] [address] [place] [address] Stacey Wu RN 10/18/2024 Telephone [facility] [address] [place] [phone] Stacey Wu RN from Last 3 Months Family History Medical [...] Garcia MD LAB BLOOD ORDERABLES Final Re sul Performing Organization Address [facility] Co de Phone Number [facility] * [...] Solitario Garcia MD LAB BLOOD ORDERABLES Final [facility] Performing Organization Address [facility] de Phone Number [facility] from Last 3 Months Insurance [facility] Care Teams Replanting Machine Operator Relationship Specialty Start Date End Date Lisandro Garcia MD [address] [place] [address] PCP - General Family Medicine 05/11/24
--- OUTSIDE RECORDS SUMMARY | 2024-12-08 00:18 | XMS_ITS | Encounter Summary ---
Author Organization [facility] Address [address] [place] [address] Care Team Providers Care Glass Mechanic Name Role Phone Lisandro Garcia MD Primary Care Provider [phone] Encounter Details Date Type Department Care Team (Late st Contact Info) Description 09/06/2024 Orders Only [facility] [address] [place] [address] Solitario Garcia MD [address] [place] [address] Chronic kidney disease stage 4 [...] Garcia MD LAB BLOOD ORDERABLES Final Re [facility] Performing Organization Address [facility] Co de Phone Number [facility] * [...] Solitario Garcia MD LAB BLOOD ORDERABLES Final [facility] Performing Organization Address [facility] de Phone Number [facility] documented in this encounter Visit Diagnoses Diagnosis Chronic kidney disease stage 4 (HCC) documented in this encounter Care Teams Glass Mechanic Relationship Specialty Start Date End Date Lisandro Garcia MD [address] [place] [address] PCP - General Family Medicine 05/11/24 documented as of this encounter
== END 2024-12-07 18:43 | disposition home or self-care (01) ==
LOC: NPINS 18:42
PROVIDERS: PCP Family Medicine; Visit Provider Nurse Practitioner Gerontology
DX: R33.9 Retention of urine, unspecified (principal); N39.0 Urinary tract infection, site not specified
CPT/HCPCS: 81001; 81003; 87086

== ENCOUNTER 2024-12-13 12:27 | Inpatient (IN) | payer MEDICARE, BC, SELFPAY ==
--- OUTSIDE RECORDS SUMMARY | 2024-11-08 10:30 | XMS_ITS | Encounter Summary ---
Author Organization [facility] Address [address] [place] [address] Care Team Providers Care Bulb Inspector Name Role Phone Lisandro Garcia MD Primary Care Provider [phone] Reason for Visit * Reason Comments Follow-up Encounter Details Date Type Department Care Team (Late st Contact Info) Description 11/08/2024 10:30 AM CDT Office Visit [facility] [address] [place] [address] Solitario Garcia MD [address] [place] [address] Chronic kidney disease stage 4 [...] original note were not included. Patient: Braydon Allen Date of : 1940 Chart: [id number] PCP: Lisandro Garcia MD Date of Service: [...] obstruction. His Cr trend has been 1.1-1.2from 5582-8668; 1.1-1.6 from 6324-7823 -> 2.0 on 02/10/23 and now 1.9-2.3 [...] our shared goal. 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 cholecalciferol (VITAMIN D-3) 250 MCG (39750 UT) capsule Ramsey Mccarthy MD Take 125 [...] by mouth 1 (one) time each day [place] 3 1000 MG capsule Ramsey Mccarthy MD [...] . Solitario Garcia MD [facility] documented in this encounter Plan of Treatment [...] (HCC) documented in this encounter Care Teams Bulb Inspector Relationship Specialty Start Date End Date Lisandro Garcia MD [address] [place] [address] PCP - General Family Medicine 05/11/24 documented as of this encounter
[2024-12-13] VITALS (23 sets, daily range): BP systolic 125–164; BP diastolic 62–81; PULSE 67–84; RESP 12–21; TEMP 36.5–36.8; O2SAT 95–98; BMI 27.1; BMI 27.2; BMI 27.3
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
--- OUTSIDE RECORDS SUMMARY | 2024-12-13 12:30 | XMS_ITS ---
Author Organization [facility] ter Care Team Providers Care Founder Name Role Phone Ailin Hu Unavailable Unavailable Elisa Inman Unavailable Unavailable Rodrigo Oliva Unavailable Unavailable Allergies and adverse reactions Code CodeSystem Substance Reaction Severity StartDate Concern Status 356182182 SNOMED CT Wound care dressing Eruption (code- 695264218, SNOMED CT) Unknown Unknown active 8896 RXNORM Pseudoephedrine Retention of urine (code- 746995284, SNOMED CT) Unknown Unknown active 212032088 SNOMED CT Cat dander Unknown Unknown active 66630 RXNORM Atorvastatin Diarrhea (code- 77761621, SNOMED CT) Unknown Unknown active Care Team Name Role Address Phone Organization Dates Rodrigo Oliva PCP [facility] [address], [address], [place], [address], [place] (Office): [facility] 11/26/2024 - 12/10/2024 Ailin Hu [facility] 11/26/2024 - 12/10/2024 Elisa Inman [address], [place], [address], [place] (Office): : [facility] 11/26/2024 - 12/10/2024 Goals Section Goals Description Status Target Date I will allow staff to utiliz e enanced barrier precautions Active 12/16/2024 I will be able to express my needs Active 12/16/2024 I will be able to verbalize/ communicate required assistance post-discharge and the services required to meet before discharge. Active 12/16/2024 I will be continent at all times through the rev iew date Active 12/16/2024 I will be continent during waking hours through the review date. Active 12/16/2024 I will be free of falls through the review date. Active 12/16/2024 I will continue to be alert and oriented x 3 Active 12/16/2024 I will continue to not have any oral/dental problems through review date. Active 12/16/2024 I will have no complications through the review date. Active 12/16/2024 I will improve current level of function in through the review date. Active 12/16/2024 I will maintain involvement in cognitive stimulation, social activities as desired through review date. Active 12/16/2024 I will remain free of abuse, neglect, or financial exploitation Active 12/16/2024 I will remain free of compli cations related to immobility, including contractures, thrombus formation, skin-breakdown, fall related injury through the next review date. Active I will return to prior level of function after wound healing and rehabilitation by review date. Active 12/16/2024 I will verbalize adequate re lief of pain or ability to cope with incompletely relieved pain through the review date. Active My Advance Directive prefere nces will be honored Active 12/16/2024 Resident Intake of Nutrients Will Meet Metabolic Needs Active 12/16/2024 Functional Status Code Name Recorded Time Value Entered By Ambulation 12/09/2024 Not assessed [email or web address] Ambulation 12/09/2024 Not assessed [email or web address] Bathing 11/29/2024 Not assessed [email or web address] Chair/yqa-wp-mlodi transfer 12/09/2024 Not assessed [email or web address] Does the resident use a wheelchair and/or scooter? 12/09/2024 Not assessed Ne.Brigid [email or web address] Dressing 12/09/2024 Not assessed [email or web address]@ [email or web address] Eating 12/09/2024 Not assessed Ne.[email or web address]@ [email or web address] Feeding or Eating 12/09/2024 Not assessed Ne. [email or web address] Indicate the type of wheelch air or scooter used 12/09/2024 Not assessed [email or web address] Indicate the type of wheelch air or scooter used 12/09/2024 Not assessed [email or web address] Lower body dressing 12/09/2024 Not assessed Ne. [email or web address] Lying to sitting on side of bed 12/09/2024 Not asses sed [email or web address] Oral hygiene 12/09/2024 Not assessed Ne.[email or web address]@ [email or web address] Personal hygiene 12/09/2024 Not assessed Ne.Colto [email or web address] Picking up object 12/09/2024 Not assessed Ne. [email or web address] Putting on/taking off footwear 12/09/2024 Not assess ed [email or web address] Roll left and right 12/09/2024 Not assessed Ne. [email or web address] Shower/bathe self 12/09/2024 Not assessed Ne.Th [email or web address] Sit to lying 12/09/2024 Not assessed Ne.Garry@ [email or web address] Sit to stand 12/09/2024 Not assessed Ne.Garry@ [email or web address] Toilet transfer 12/09/2024 Not assessed Ne.Stef [email or web address] Toileting 12/09/2024 Not assessed Ne.Garry@ [email or web address] Toileting hygiene 12/09/2024 Not assessed Ne.Th [email or web address] Transferring 12/09/2024 Not assessed Ne.Garry@ [email or web address] Upper body dressing 12/09/2024 Not assessed Ne. [email or web address] Walk 10 feet 12/09/2024 Not assessed Ne.Garry@ [email or web address] Walk 150 feet 12/09/2024 Not assessed Ne.Garry @[email or web address] Walk 50 feet 12/09/2024 Not assessed [email or web address] Wheel 150 feet 12/09/2024 Not assessed Ne.Brigid [email or web address] Wheel 50 feet with two turns 12/09/2024 Not assessed [email or web address] Immunizations Immunization Status Vaccine Details Vaccine Code CodeSystem Glenn e Notes Tdap (Tetanus Diphtheria Pertussis) completed tetanus toxoid, reduced diphtheria toxoid, and acellular pertussis vaccine, adsorbed 115 CVX created date: 11/26/2024 administered date: 04/01/2000 Medications Section Medication Name Status Code CodeSystem Dose Route Frequency Admin Type Sig Text Start Date End Date Cholecalcifer ol Oral Tablet 125 MCG (5000 UT) aborted 554777 RXNORM 1 tablet Oral one time a day Routine Give 1 tablet by mouth one time a day for Supple ment 12/09 glipiZIDE XL Oral Tablet Extended Release 24 Hour 2.5 MG aborted 1 tablet Oral one time a day Routine Give 1 tablet by mouth one time a day relate d to TYPE 2 DIABET ES MELLIT US WITH DIABET IC CHRONI C KIDNEY DISEAS E (E11.2 2) Daily before mornin g meal 12/09 Metoprolol Succinate ER Oral Tablet Extended Release 24 Hour 25 MG aborted 700519 RXNORM 1 tablet Oral one time a day Routine Give 1 tablet by mouth one time a day relate d to ESSENT IAL (PRIMA RY) HYPERT ENSION (I10) 12/09 Rosuvastatin Calcium Oral Tablet 10 MG aborted 747854 RXNORM 1 tablet Oral at bedtime Routine Give 1 tablet by mouth at bedtim e relate d to HYPERL IPIDEM IA, UNSPEC IFIED (E78.5 ) 12/09 Acetaminophen Oral Tablet 325 MG aborted 286530 RXNORM 975 mg Oral three times a day Routine Give 975 mg by mouth three times a day for Pain 12/09 Sennosides-Do cusate Sodium Oral Tablet 8.6-50 MG aborted 665656 RXNORM 1 tablet Oral two times a day Routine Give 1 tablet by mouth two times a day relate d to DRUG INDUCE D CONSTI PATION (K59.0 3) Hold for loose stools 12/03 Ascorbic Acid Oral Tablet 500 MG aborted 328698 RXNORM 1000 mg Oral one time a day Routine Give 1000 mg by mouth one time a day for Supple ment 12/09 Zinc Acetate Oral Capsule 50 MG aborted 155391 RXNORM 1 capsul e Oral one time a day Routine Give 1 capsul e by mouth one time a day for Supple ment 12/09 Polyethylene Glycol 3350 Powder aborted 17 gram Oral one time a day Routine Give 17 gram by mouth one time a day relate d to DRUG INDUCE D CONSTI PATION (K59.0 3) Hold for Loose Stools 12/09 [place] 3 Oral Capsule 1000 MG aborted 1 capsul e Oral one time a day Routine Give 1 capsul e by mouth one time a day for Supple ments 12/09 Olmesartan Medoxomil Oral Tablet 40 MG aborted 416185 RXNORM 1 tablet Oral one time a day Routine Give 1 tablet by mouth one time a day relate d to ESSENT IAL (PRIMA RY) HYPERT ENSION (I10) 12/09 Aspirin Low Strength Oral Tablet Chewable 81 MG aborted 2 tablet Oral one time a day Routine Give 2 tablet by mouth one time a day relate d to ATHERO SCLERO TIC HEART DISEAS E OF [place] RY ARTERY WITHOU T ANGINA PECTOR IS (I25.1 0) until 2024 23:59 12/09 Multivitamin- Minerals Oral Tablet aborted 1 tablet Oral one time a day Routine Give 1 tablet by mouth one time a day for Supple ment 12/09 oxyCODONE HCl Oral Tablet 5 MG aborted 1122484 RXNORM 1 tablet Oral as needed PRN Give 1 tablet by mouth every 4 hours as needed for Pain relate d to UNSPEC IFIED FRACTU RE OF RIGHT FEMUR, SUBSEQ UENT ENCOUN TER FOR CLOSED FRACTU RE WITH ROUTIN E HEALIN G (S72.9 1XD) 12/09 CoQ10 Oral Capsule 400 MG aborted 1 capsul e Oral one time a day Routine Give 1 capsul e by mouth one time a day for supple ment 12/09 Sennosides-Do cusate Sodium Oral Tablet 8.6-50 MG aborted 715932 RXNORM 1 tablet Oral as needed PRN Give 1 tablet by mouth as needed for consti pation relate d to DRUG INDUCE D CONSTI PATION (K59.0 3) 12/09 Mental Status Section Date Assessment Total Score Description 12/03/2024 BIMS 15 cognitively int act PHQ-9 00 12/03/2024 BIMS 15 cognitively int act CAM 0 No delirium ind icated PHQ-9 00 Problems Problem # Description Date of onset Resolved Date Code CodeSystem Concern Status 1 ATHEROSCLEROTIC HEART DISEASE OF [place] CORONARY ARTERY WITHOUT ANGINA PECTORIS 11/27/[address] active 2 BENIGN PROSTATIC HYPERPLASIA WITH LOWER URINARY TRACT SYMPTOMS 11/27/[address] active 3 CHRONIC KIDNEY DISEASE, STAGE 4 (SEVERE) 11/27/[address] active 4 DRUG INDUCED CONSTIPATION 11/27/[address] active 5 ESSENTIAL (PRIMARY) HYPERTENSION 11/27/[address] active 6 HYPERLIPIDEMIA, UNSPECIFIED 11/27/[address] active 7 OTHER SPECIFIED DISEASES OF PANCREAS 11/27/[address] active 8 TYPE 2 DIABETES MELLITUS WITH DIABETIC CHRONIC KIDNEY DISEASE 11/27/[address] active 9 UNSPECIFIED FRACTURE OF RIGHT FEMUR, SUBSEQUENT ENCOUNTER FOR CLOSED FRACTURE WITH ROUTINE HEALING 11/27/[address] active Reason for Referral No Reasons for Referral Entered Social History Social History Observation Description Start Date End Date Code Code System Current Smoking Status Tobacco smoking consumption unknown 659183397 SNOMED CT Sex Assigned At Male 1940 22373-5 LOINC Gender Identity Vital Signs Code Code System Vitals Name Values and Units Timing Information 60216-2 LOINC Pain Level Value=1.0 12/09/2024 8462-4 LOINC Blood Pressure-Diastolic Value=64 Un its=mmHg 12/04/2024 8480-6 [facility] Blood Pressure-Systolic Olled=122 Un its=mmHg 12/04/2024 8310-5 [facility] Body Temperature Value=97.7 Units= F 12/04/2024 8867-4 [facility] Heart rate Value=62.0 Units=/min 06/2024 35286-7 [facility] O2 % BldC Oximetry Value=93.0 Units= % 12/04/2024 9279-1 [facility] Respiratory Rate Value=18.0 Units=/m in 12/04/2024 8302-2 [facility] Height Value=70.0 Units=Inches 12/04/2024 09935-8 [facility] Weight Xsxht=940.3 Units=Lbs
--- OUTSIDE RECORDS SUMMARY | 2024-12-13 12:30 | XMS_ITS | Encounter Summary ---
Author Organization [facility] Address [address] [place] [address] Care Team Providers Care Cash Applications Representative Name Role Phone Lisandro Garcia MD Primary Care Provider Encounter Details Date Type Department Care Team (Late st Contact Info) Description 10/20/2024 Results Follow-Up [facility] [address] [place] [address] Stacey Wu, RN [address] [place] [address] Social History Tobacco Use Types [...] on filedocumented in this encounter Care Teams Cash Applications Representative Relationship Specialty Start Date End Date Lisandro Garcia MD [address] [place] [address] PCP - General Family Medicine 05/11/24 documented as of this encounter
--- OUTSIDE RECORDS SUMMARY | 2024-12-13 12:30 | XMS_ITS | Encounter Summary ---
Author Organization [facility] Address [address] [place] [address] Care Team Providers Care Stock Lifter Name Role Phone Lisandro Garcia MD Primary Care Provider [phone] Encounter Details Date Type Department Care Team (Late st Contact Info) Description 09/06/2024 Orders Only [facility] [address] [place] [address] Solitario Garcia MD [address] [place] [address] Chronic kidney disease stage 4 [...] Garcia MD LAB BLOOD ORDERABLES Final [facility] Performing Organization Address [facility] Co de Phone Number [facility] [...] Solitario Garcia MD LAB BLOOD ORDERABLES Final [facility] Performing Organization Address [facility] de Phone Number [facility] documented in this encounter Visit Diagnoses Diagnosis Chronic kidney disease stage 4 (HCC) documented in this encounter Care Teams Stock Lifter Relationship Specialty Start Date End Date Lisandro Garcia MD [address] [place] [address] PCP - General Family Medicine 05/11/24 documented as of this encounter
--- OUTSIDE RECORDS SUMMARY | 2024-12-13 12:30 | XMS_ITS | Clinical Summary ---
Author Organization [facility] Address [address] [facility] [place] [address] Phone Care Team Providers Care Land Classifier Name Role Phone Lisandro Garcia MD Primary Care Provider [phone] Allergies Active Allergy Reactions Criticality Noted Date Comments Adhesive Tape Rash Low 09/02/2018 Atorvastatin Diarrhea High 11/22/2021 Lisinopril Diarrhea 02/13/2023 Other 05/13/2024 Oxycodone Other (see comments) 08/20/2017 Pt reported Pseudoephedrine Other (see comments) 05/13/2024 Medications ascorbic acid (VITAMIN C) 1000 MG tablet Take 1,000 mg by mouth in the morning. Active cholecalciferol (VITAMIN D-3) 250 MCG (74566 UT) capsule Take 125 mcg by mouth 1 (one) time each day Active glipiZIDE (GLUCOTROL XL) 2.5 MG 24 hr tablet Take 2.5 mg by mouth in the morning. 04/13/2024 Active olmesartan (BENICAR) 40 MG tablet Take 20 mg by mouth 1 (one) time each day 05/11/2024 Active [place] 3 1000 MG capsule Take 1 capsule [...] mass in Pancreas noted on CT at [facility] in 05/2018. Pancreatic MRI recommend to follow up on this area in 05/2019. Hypertensive chronic kidney disease with stage 1 through stage 4 chronic kidney disease, or unspecified chronic kidney disease 08/31/2018 Coronary arteriosclerosis 08/16/2017 Overview (05/14/2024): He had a stent placed in the diagonal branch of his left anterior descending artery on 01/03/2005 at [facility]. Hyperlipidemia 05/18/2012 Encounters Date Type Department Care Team Description 11/08/2024 10:30 AM CDT Office Visit [facility] [address] [place] [address] Solitario Garcia MD Chronic kidney disease [...] [facility] [address] [place] [address] Stacey Wu RN 10/18/2024 Telephone [facility] [address] [place] [id number] Stacey Wu RN from Last 3 Months [...] ORDERABLES Final Re sul Performing Organization Address [facility] Co de Phone Number [facility] [...] Solitario Garcia MD LAB BLOOD ORDERABLES Final [facility] Performing Organization Address [facility] de Phone Number [facility] from Last 3 Months Insurance [employer] Care Teams Land Classifier Relationship Specialty Start Date End Date Lisandro Garcia MD [address] [place] [address] PCP - General Family Medicine 05/11/24
[2024-12-13 13:35] LABS: Glucose, Point-of-Care* 204 mg/dl (60-115)
[2024-12-13 14:04] LABS: Hematocrit* 24.8 % (37.0-53.0); Hemoglobin* 8.1 gm/dL (13.5-17.5); Immature Granulocytes Pct Auto 1.1 %; Lymphocytes Absolute Auto 1.50 K/uL (0.90-2.90); Mean Corpuscular HGB Conc 33 gm/dL (32-36); Mean Corpuscular Hemoglobin 32 pg (26-34); Mean Corpuscular Volume 98 fL (80-100); RDW Coefficient of Variation % 14.3 % (11.5-15.5); Red Blood Count* 2.52 m/uL (4.30-5.90); White Blood Count* 14.07 K/uL (4.50-11.00)
[2024-12-13 14:09] LABS: Immature Granulocytes Abs Auto 0.20 K/uL (0.00-0.30)
[2024-12-13 14:10] LABS: Slide Review Reflex No
--- NOTE | 2024-12-13 14:14 | ED.GENADULT ---
HPI - General Adult General Date Seen: 12/13/24 Chief complaint: GI Bleed Stated complaint: weakness and dark stool Time Seen by Provider: 12/13/24 14:12 History of Present Illness HPI narrative: 84 yo M with a past history of type 2 diabetes, coronary disease, gallstones and acute cholecystitis, high blood pressure, recent complex left distal femur fracture who presents to the ER today by private car from home for evaluation of generalized weakness, nausea and poor appetite that have been getting gradually worse for the past 7-10 days. Now with dark black melanotic stools for the past 4 days with progressively worsening weakness. He was sent into the ER today by the [facility] phone triage nurse. He is not anticoagulated and has no history of thrombocytopenia. No history of stomach ulcers or esophageal or stools or liver disease or varices. He does not take any anti acid medication. Was here in the ER 11/22 after a fall with a periprosthetic right distal femur fracture. Transfer to [facility]. I do not have complete records from that hospitalization. When I review records through [facility], I can see the he has had labs as recently as 12/07. On that date white blood cell count was 12.1, hemoglobin 9.0, platelet count 322. Sodium 134, potassium 4.9, chloride 101, bicarb 22, glucose 189, BUN 44, creatinine 2.71. He says he was in the hospital at [facility] had surgery on 11/24. The surgery went very well and he was actually ambulatory on his injured right leg the day after surgery. He was discharged from [facility] to [address] [place] [address] and had been rehabbing there for couple of weeks. notes that over a week ago he started having a lot of nausea and poor appetite. Initially they thought it was probably just nervous and stressed from being away from home. He was strong enough that he was able to discharge home from [facility] 4 days ago, last . However for the past few days he and his have been noting frankly black soft almost liquidy stools. He has 3 2-3 black bowel movements per day. He has been nauseous but not throwing up at all. No fever. He is not really having abdominal pain. His leg is been healing well. He saw his doctor for postop and had the shadia out last week. He is very pleased with how his femur is healing. Related Data Home Medications ?Medication ?Instructions ?Recorded ?Confirmed ascorbic acid (vitamin C) 1,000 mg 1 g PO DAILY 07/16/23 06/28/24 capsule cholecalciferol (vitamin D3) 125 125 mcg PO DAILY 07/16/23 06/28/24 mcg (5,000 unit) capsule glipizide 2.5 mg tablet, extended 2.5 mg PO DAILY 07/16/23 12/13/24 release 24 hr omega 3-vsu-mas-fish oil 1,000 mg 1 cap PO DAILY 07/16/23 06/28/24 (120 mg-180 mg) capsule (Fish Oil) sildenafil 50 mg tablet (Viagra) 50 mg PO DAILY PRN 07/16/23 06/28/24 metoprolol succinate 25 mg 25 mg PO DAILY 06/28/24 12/13/24 tablet,extended release 24 hr olmesartan 40 mg tablet 40 mg PO DAILY 06/28/24 12/13/24 blood sugar diagnostic (True 12/13/24 12/13/24 Metrix Glucose Test Strip) rosuvastatin 10 mg tablet 10 mg PO QPM 12/13/24 12/13/24 Previous Rx's ?Medication ?Instructions ?Recorded acetaminophen 500 mg capsule 500 - 1,000 mg (1 - 2 x 500 mg) PO 07/17/23 Q6H PRN #100 caps Allergies Allergy/AdvReac Type Severity Reaction Status Date / Time pseudoephedrine (From Allergy Intermediate unable to Verified 06/28/24 15:04 Sudafed) urinate cat dander Allergy Unknown Verified 06/28/24 15:04 oxycodone Allergy Unknown hallucinati Verified 06/28/24 15:04 ons adhesive Allergy Rash Verified 06/28/24 15:04 atorvastatin AdvReac Diarrhea Verified 06/28/24 15:04 PFSH PFSH Medical History Pneumonia due to severe acute respiratory syndrome coronavirus 2 (SARS-CoV-2) ?U07.1 - COVID-19 (ICD-10) ?J12.82 - Pneumonia due to coronavirus disease 2019 (ICD-10) Pain in both knees ?M25.561 - Pain in right knee (ICD-10) ?M25.562 - Pain in left knee (ICD-10) Hyponatremia ?E87.1 - Hypo-osmolality and hyponatremia (ICD-10) Fall ?W19.XXXA - Unspecified fall, initial encounter (ICD-10) Cholelithiasis with acute cholecystitis ?K80.00 - Calculus of gallbladder with acute cholecystitis without obstruction (ICD-10) Abdominal pain ?R10.9 - Unspecified abdominal pain (ICD-10) Traumatic tear of right rotator cuff ?S46.011A - Strain of muscle(s) and tendon(s) of the rotator cuff of right shoulder, initial encounter (ICD-10) MRSA infection ?A49.02 - Methicillin resistant Staphylococcus aureus infection, unspecified site (ICD-10) Arthritis ?M19.90 - Unspecified osteoarthritis, unspecified site (ICD-10) Type 2 diabetes mellitus ?E11.9 - Type 2 diabetes mellitus without complications (ICD-10) Myocardial infarction ?I21.9 - Acute myocardial infarction, unspecified (ICD-10) Hypertension ?I10 - Essential (primary) hypertension (ICD-10) Coronary artery disease ?I25.10 - Atherosclerotic heart disease of [place] coronary artery without angina pectoris (ICD-10) Surgical History 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) ?Z96.611 - Presence of right artificial shoulder joint (ICD-10) H/O arthroscopy of right knee (06/05/07) ?Z98.890 - Other specified postprocedural states (ICD-10) History of prostate surgery ?Z98.890 - Other specified postprocedural states (ICD-10) 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) ?Z96.651 - Presence of right artificial knee joint (ICD-10) H/O hernia repair (09/08/18) ?Z98.890 - Other specified postprocedural states (ICD-10) ?Z87.19 - Personal history of other diseases of the digestive system (ICD-10) History of cholecystectomy (08/17/17) ?Z90.49 - Acquired absence of other specified parts of digestive tract (ICD-10) H/O right coronary artery stent placement ?Z95.5 - Presence of coronary angioplasty implant and graft (ICD-10) History of right hip replacement (12/13/19) ?Z96.641 - Presence of right artificial hip joint (ICD-10) Social History Smoking Status: Never smoker How often do you have a drink containing alcohol: never AUDIT-C Alcohol total score: 0 Non-prescribed substance use: denies use Caffeine: Yes Exam Narrative: Exam Narrative: Constitutional: Appears well-developed and well-nourished. Alert. Conversant. Pale but not diaphoretic or mottled. Non toxic. HENT: Head: Atraumatic. Nose: Nose normal. Mouth/Throat: Oral mucosa is clear and moist. no trismus. Pharynx normal. Tonsils symmetric. No tonsillar enlargement, erythema, or exudate. Eyes: Conjunctivae pale. EOM normal. Pupils equal, round, and reactive to light. No scleral icterus. Neck: Normal range of motion. Neck supple. No tracheal deviation present. Cardiovascular: Normal rate, regular rhythm. No gallop. No friction rub. No murmur heard. Symmetric radial artery pulses Pulmonary/Chest: Effort normal. No stridor. No respiratory distress. No wheezes. No rales. No rhonchi . No tenderness. Abdominal: Soft. Bowel sounds normal. No distension. No mass. No tenderness. No HSM. No rebound. No guarding. Musculoskeletal: RUE: Normal range of motion. No tenderness. No deformity LUE: Normal range of motion. No tenderness. No deformity RLE: Dressings and healing incisions on his right femur. Leg in for incisions look good. I do not see any redness. No swelling or bruising. Normal range of motion. No edema. No tenderness. No deformity LLE: Normal range of motion. No edema. No tenderness. No deformity Lymph: No cervical adenopathy. Neurological: Alert and oriented to person, place, and time. Normal strength. CN II-VII intact. No sensory deficit. GCS eye subscore is 4. GCS verbal subscore is 5. GCS motor subscore is 6. Normal coordination Skin: Skin is warm and dry. No rash noted. No pallor. Normal capillary refill. Psychiatric: Normal mood. Normal affect. Const: Vital Signs, click to edit/add: Vital Signs - 24 hr 12/13/24 13:23 12/13/24 14:13 12/13/24 14:14 Temperature 97.8 F Pulse Rate 82 81 Pulse Rate [Pulse Oximeter] 68 Respiratory Rate 20 16 Blood Pressure 140/70 H Blood Pressure [Ri ght Upper Arm] 129/65 Pulse Oximetry 98 97 97 Oxygen Delivery Me thod Room Air Room Air 12/13/24 14:15 Temperature Pulse Rate 80 Pulse Rate [Pulse Oximeter] Respiratory Rate Blood Pressure Blood Pressure [Ri ght Upper Arm] Pulse Oximetry 97 Oxygen Delivery Me thod Course Vital Signs Vital signs: Initial Vital Signs Temperature 97.8 F 12/13/24 13:23 Temperature Source Temporal Artery Scan 12/13/24 13:23 Pulse Rate 68 12/13/24 13:23 Respiratory Rate 20 12/13/24 13:23 Blood Pressure 129/65 12/13/24 13:23 Blood Pressure Mean 86 12/13/24 13:23 Blood Pressure Position Sitting 12/13/24 13:23 Pulse Oximetry 98 12/13/24 13:23 Oxygen Delivery Method Room Air 12/13/24 13:23 Vital Signs Temperature 97.8 F 12/13/24 13:23 Pulse Rate 68 12/13/24 13:23 Respiratory Rate 20 12/13/24 13:23 Blood Pressure 129/65 12/13/24 13:23 Pulse Oximetry 98 12/13/24 13:23 Oxygen Delivery Method Room Air 12/13/24 13:23 Temperature 97.8 F 12/13/24 13:23 Pulse Rate 80 12/13/24 14:15 Respiratory Rate 16 12/13/24 14:13 Blood Pressure 140/70 H 12/13/24 14:13 Pulse Oximetry 97 12/13/24 14:15 Oxygen Delivery Method Room Air 12/13/24 14:13 Medical Decision Making MDM Narrative Medical decision making narrative: 84-year-old gentleman presenting to the ER today with a few week history of poor appetite and nausea and a 4 day history of melanotic stools. Concern is for upper GI bleed. Stool today is heme-positive. Hemoglobin baseline is 13.4 on 11/22 , down to 9.0 on 12/07-further down to 8.1 today., platelet count 331. patient is not on any anticoagulants. At this point blood pressure stable. Hemoglobin is above 8 he therefore will hold off an immediate transfusion. Type and screen has been ordered. Two IVs are established. He does have leukocytosis like and 14, this is similar to last month but up slightly. He does have baseline renal insufficiency with baseline creatinine about 2.7. Today creatinine is 2.5. Will hold off on GI bleed protocol CT scan due to the risk of contrast nephropathy and acute kidney injury. BUN is elevated over baseline, likely due to upper GI bleed. Glucose is 204. No evidence for DKA or nonketotic hyperosmolar syndrome Discussed with our hospitalist, Dr. Mccain. She graciously agrees to admit this patient to the hospital as an inpatient status. Lab Data Labs: Lab Results 12/13/24 12/13/24 Range/Units 13:33 13:35 WBC 14.07 H (4.50-11.00) K/uL RBC 2.52 L (4.30-5.90) m/uL Hgb 8.1 L (13.5-17.5) gm/dL Hct 24.8 L (37.0-53.0) % MCV 98 (80-100) fL MCH 32 (26-34) pg MCHC 33 (32-36) gm/dL RDW Coeff of Jose Antonio 14.3 (11.5-15.5) % Plt Count 331 (140-440) K/uL Neut % (Auto) 76.6 H (42.0-72.0) % Lymph % (Auto) 10.7 L (20-44) % [place] % (Auto) 9.5 (0.0-11.0) % Eos % (Auto) 1.8 (0.0-7.0) % Baso % (Auto) 0.3 (0.0-3.0) % Neut # (Auto) 10.80 H (1.7-7.0) K/uL Lymph # (Auto) 1.50 (0.90-2.90) K/uL [place] # (Auto) 1.30 H (0.00-0.90) K/UL Eos # (Auto) 0.30 (0.00-0.50) K/uL Baso # (Auto) 0.00 (0.00-0.30) K/uL Abs Immat Gran (auto) 0.20 (0.00-0.30) K/uL Imm/Tot Granulo (auto) 1.1 % Sodium 133 L (135-149) mmol/L Potassium 4.3 (3.6-5.1) mmol/L Chloride 105 (96-114) mmol/L Carbon Dioxide 21 (20-32) mmol/L Anion Gap 7 (7-15) mEq/L BUN 61 H (7-30) mg/dL Creatinine 2.5 H (0.5-1.5) mg/dL Estimated Creat Clear 22.31 Estimated GFR 25 ml/min Glucose 205 H (60-115) mg/dL Calcium 10.1 (8.4-10.6) mg/dL Total Bilirubin 0.8 (0.1-1.5) mg/dL AST 36 H (12-35) U/L ALT 19 (4-50) U/L Alkaline Phosphatase 139 (40-150) U/L Total Protein 6.3 (6.0-8.3) g/dL Albumin 3.4 (3.3-5.0) g/dL Stool Occult Blood Positive (Negative) POC Glucose 204 H (60-115) mg/dl Discharge Plan Discharge Clinical Impression: Acute upper gastrointestinal bleeding, Anemia, Chronic kidney insufficiency Prescriptions: No Action olmesartan 40 mg tablet 40 mg PO DAILY metoprolol succinate 25 mg tablet extended release 24 hr 25 mg PO DAILY glipizide 2.5 mg tablet extended release 24hr 2.5 mg PO DAILY ascorbic acid (vitamin C) 1,000 mg capsule 1 g PO DAILY cholecalciferol (vitamin D3) 125 mcg (5,000 unit) capsule 125 mcg PO DAILY omega 1-oge-ver-fish oil [Fish Oil] 1,000 mg (120 mg-180 mg) capsule 1 cap PO DAILY sildenafil [Viagra] 50 mg tablet 50 mg PO DAILY PRN Rx Instructions: administer 30 minutes to 4 hours before activity acetaminophen 500 mg capsule 500 - 1,000 mg PO Q6H MDD 3000mg PRNQty: 100 0RF (DME) True Metrix Glucose Test Strip Strip MISCELLANEOUS DAILY rosuvastatin 10 mg tablet 10 mg PO QPM Follow Up/Referrals: Lisandro Garcia MD [Primary Care Provider, Family Practice]
[2024-12-13 14:17] LABS: Albumin* 3.4 g/dL (3.3-5.0); Chloride* 105 mmol/L (96-114); Sodium* 133 mmol/L (135-149)
[2024-12-13 14:18] LABS: Potassium* 4.3 mmol/L (3.6-5.1)
[2024-12-13 14:20] LABS: Alanine Aminotransferase* 19 U/L (4-50); Alkaline Phosphatase* 139 U/L (40-150); Anion Gap 7 mEq/L (7-15); Aspartate Amino Transferase* 36 U/L (12-35); Bilirubin Total* 0.8 mg/dL (0.1-1.5); Blood Urea Nitrogen* 61 mg/dL (7-30); Carbon Dioxide* 21 mmol/L (20-32); Creatinine* 2.5 mg/dL (0.5-1.5); Est. Creatinine Clearance* 22.31; Estimated Glomerular Filt Rate 25 ml/min; Total Protein* 6.3 g/dL (6.0-8.3)
[2024-12-13 14:21] LABS: Calcium* 10.1 mg/dL (8.4-10.6); Glucose* 205 mg/dL (60-115)
[2024-12-13 14:37] LABS: Fecal Occult Blood* Positive (Negative)
[2024-12-13 15:02] LABS: Lactate* 1.9 mmol/L (0.5-1.9)
[2024-12-13] MEDS: 0.9 % SODIUM CHLORIDE 500 ML 500 ML IV (15:04)
[2024-12-13] MEDS: PANTOPRAZOLE SODIUM 40 MG INJ 80 MG IVP (15:04)
--- NOTE | 2024-12-13 17:01 | PM.IMHP1 ---
Assessment and Plan Assessment and plan (1) Anemia: Problem comment: - new diagnosis (Hgb 8.1 on 12/13, previously 12-13) - likely UGIB, notably was on ASA from 11/25/24-12/09/24 after surgery at [facility] [place] Status: Acute (2) Acute upper gastrointestinal bleeding: Problem comment: - melanotic stools, Hgb 8.1 (baseline 12-13) - clear liquid diet now, continue PPI, serial Hgb - EGD ordered Status: Acute (3) Type 2 diabetes mellitus: Problem comment: - Hgb A1C 7.3 10/2024, on Glipizide Status: Acute (4) Chronic kidney disease (CKD), stage 4: Problem comment: - baseline creatinine 2.5, follows with Radha of Nephrology Status: Acute Plan - per above - Melissa updated bedside, questions answered - inpatient appropriate given serial Hgb, need for EGD, comorbidities Hospitalist- H&P: HPI History of Present Illness Date Seen: 12/13/24 Chief complaint: weakness and dark stool Narrative: Braydon Allen is a 84 year old male who presented to the ER for approximately 1 week history of weakness, nausea, and anorexia. Over the past 3-4 days, he's also noted melanotic stools. No vomiting, no abdominal pain. Recent medical history: Had a mechanical fall on 11/22/24, seen in ER with a comminuted periprosthetic fracture and ultimately transferred to [facility] [place]. He is s/p a R interprosthetic femur ORIF (disal femur periprosthetic portion) and R retrograde femur nail (the shaft portion at the distal end of the hip stem) on 11/24/24. Was treated with 162mg of ASA daily until 12/09/24 for postoperative prophylaxis. Had been at [facility] for postoperative rehab until 12/10/24. Since being home, continues to have nausea, unable to eat much 2/2 symptoms. Feels weak, no falls. ER Course and Findings: - Hgb 8.1 (Hgb on 11/22 was 13.4), + stool occult blood - BP 129/65, HR 80s - Creatinine 2.5 (baseline), AST 36, Na 133 - given 80mg of IV Protonix Braydon is admitted to the hospital for new Hgb, presumably 2/2 ABLA and UGIB. Histories updated below, PCP is Dr. Garcia at the [facility] and Dr. Garcia is Drop Wire Aligner. Review of Systems Status of ROS: Reports: 10 or more systems reviewed and unremarkable except as noted in History and below Medical Decision Making Medical Decision Making Code Status: DNR/DNI Has patient completed a Health Care Directive: Yes During This Stay, Who Would You Like To Make Decisions For You In The Event You Are Unable To Make Them For Yourself?: Melissa [facility] Medical History (Updated 12/13/24 @ 17:42 by Erica Mccain MD) Pancreatic mass ?K86.89 - Other specified diseases of pancreas (ICD-10) Chronic kidney disease (CKD), stage 4 ?N18.4 - Chronic kidney disease, stage 4 (severe) (ICD-10) Traumatic tear of right rotator cuff ?S46.011A - Strain of muscle(s) and tendon(s) of the rotator cuff of right shoulder, initial encounter (ICD-10) MRSA infection ?A49.02 - Methicillin resistant Staphylococcus aureus infection, unspecified site (ICD-10) Arthritis ?M19.90 - Unspecified osteoarthritis, unspecified site (ICD-10) Type 2 diabetes mellitus ?E11.9 - Type 2 diabetes mellitus without complications (ICD-10) Myocardial infarction ?I21.9 - Acute myocardial infarction, unspecified (ICD-10) Hypertension ?I10 - Essential (primary) hypertension (ICD-10) Coronary artery disease ?I25.10 - Atherosclerotic heart disease of [place] coronary artery without angina pectoris (ICD-10) Surgical History 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) ?Z96.611 - Presence of right artificial shoulder joint (ICD-10) H/O arthroscopy of right knee (06/05/07) ?Z98.890 - Other specified postprocedural states (ICD-10) History of prostate surgery ?Z98.890 - Other specified postprocedural states (ICD-10) 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) ?Z96.651 - Presence of right artificial knee joint (ICD-10) H/O hernia repair (09/08/18) ?Z98.890 - Other specified postprocedural states (ICD-10) ?Z87.19 - Personal history of other diseases of the digestive system (ICD-10) History of cholecystectomy (08/17/17) ?Z90.49 - Acquired absence of other specified parts of digestive tract (ICD-10) H/O right coronary artery stent placement ?Z95.5 - Presence of coronary angioplasty implant and graft (ICD-10) History of right hip replacement (12/13/19) ?Z96.641 - Presence of right artificial hip joint (ICD-10) Social History (Updated 12/13/24 @ 17:21 by Erica Mccain MD) 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 Melissa is MDM. DNR/DNI Smoking Status: Never smoker How often do you have a drink containing alcohol: monthly or less AUDIT-C Alcohol total score: 1 Non-prescribed substance use: denies use Caffeine: Yes Meds Home Medications and Allergies Home Medications ?Medication ?Instructions ?Recorded ?Confirmed ?Type ascorbic acid (vitamin C) 1,000 mg 1 g PO DAILY 07/16/23 12/13/24 History capsule cholecalciferol (vitamin D3) 125 125 mcg PO DAILY 07/16/23 12/13/24 History mcg (5,000 unit) capsule glipizide 2.5 mg tablet, extended 2.5 mg PO DAILY 07/16/23 12/13/24 History release 24 hr omega 8-vve-mvs-fish oil 1,000 mg 1 cap PO DAILY 07/16/23 12/13/24 History (120 mg-180 mg) capsule (Fish Oil) sildenafil 50 mg tablet (Viagra) 50 mg PO DAILY PRN 07/16/23 12/13/24 History acetaminophen 500 mg capsule 500 - 1,000 mg (1 - 2 x 500 mg) PO 07/17/23 12/13/24 Rx Q6H PRN #100 caps metoprolol succinate 25 mg 25 mg PO DAILY 06/28/24 12/13/24 History tablet,extended release 24 hr olmesartan 40 mg tablet 40 mg PO DAILY 06/28/24 12/13/24 History blood sugar diagnostic (True 12/13/24 12/13/24 History Metrix Glucose Test Strip) rosuvastatin 10 mg tablet 10 mg PO HS 12/13/24 12/13/24 History Allergies Allergy/AdvReac Type Severity Reaction Status Date / Time pseudoephedrine (From Allergy Intermediate unable to Verified 06/28/24 15:04 Sudafed) urinate cat dander Allergy Unknown Verified 06/28/24 15:04 oxycodone Allergy Unknown hallucinati Verified 06/28/24 15:04 ons adhesive Allergy Rash Verified 06/28/24 15:04 atorvastatin AdvReac Diarrhea Verified 06/28/24 15:04 Exam Narrative: Exam Narrative: GEN: Alert and oriented, laying comfortably in bed HEENT: EOMIs bilaterally, no scleral icterus, + conjunctival pallor CV: RRR, soft systolic murmur R: LCTA bilaterally without concerning wheezing Ab: soft, nontender, no masses Ext: wwp, trace edema B ankles Skin: No concerning skin lesions or rashes on exposed skin Neuro: Nonfocal Psych: Appropriate Const: Vital Signs, click to edit/add: Vital Signs - 24 hr 12/13/24 13:23 12/13/24 14:13 12/13/24 14:14 Temperature 97.8 F Pulse Rate 82 81 Pulse Rate [Pulse Oximeter] 68 Respiratory Rate 20 16 Blood Pressure 140/70 H Blood Pressure [Ri ght Upper Arm] 129/65 Pulse Oximetry 98 97 97 Oxygen Delivery Me od Room Air Room Air 12/13/24 14:15 12/13/24 14:30 12/13/24 14:45 Temperature Pulse Rate 80 83 82 Pulse Rate [Pulse Oximeter] Respiratory Rate 21 21 Blood Pressure Blood Pressure [Ri ght Upper Arm] Pulse Oximetry 97 [address] [facility] 15:00 12/13/24 15:10 12/13/24 15:15 Temperature Pulse Rate 82 83 Pulse Rate [Pulse Oximeter] Respiratory Rate 12 20 20 Blood Pressure 161/76 H Blood Pressure [Ri ght Upper Arm] Pulse Oximetry [address] [facility] 12/13/24 15:30 12/13/24 15:45 Temperature Pulse Rate 84 81 Pulse Rate [Pulse Oximeter] Respiratory Rate 13 15 Blood Pressure Blood Pressure [Ri ght Upper Arm] Pulse Oximetry 97 95 Oxygen Delivery Me thod Hospitalist - H&P: Result Labs Labs: Short CBC 12/13/24 Range/Units 13:35 WBC 14.07 H (4.50-11.00) K/uL Hgb 8.1 L (13.5-17.5) gm/dL Hct 24.8 L (37.0-53.0) % Plt Count 331 (140-440) K/uL BMP 12/13/24 13:35 Sodium 133 L Potassium 4.3 Chloride 105 Carbon Dioxide 21 BUN 61 H Creatinine 2.5 H Glucose 205 H Calcium 10.1 Liver Function 12/13/24 Range/Units 13:35 Total Bilirubin 0.8 (0.1-1.5) mg/dL AST 36 H (12-35) U/L ALT 19 (4-50) U/L Alkaline Phosphatase 139 (40-150) U/L Albumin 3.4 (3.3-5.0) g/dL
[2024-12-13] MEDS: ACETAMINOPHEN 325 MG TABLET 975 MG PO ×2 (17:54→23:27)
[2024-12-13 18:13] LABS: Hemoglobin* 7.2 gm/dL (13.5-17.5)
[2024-12-13] MEDS: ROSUVASTATIN CALCIUM 10 MG TABLET PO (20:42)
[2024-12-13] MEDS: SODIUM CHLORIDE 0.9 % (FLUSH) 10 ML SYRINGE 5 ML IVF (20:43)
[2024-12-13] MEDS: 0.9 % SODIUM CHLORIDE 500 ML 250 ML IV ×2 (22:04→23:30)
[2024-12-13 22:44] LABS: H pylori Ag Stool* Negative (Negative)
--- NOTE | 2024-12-13 23:44 | PC.NURSE ---
End of Shift: Patient pleasant and cooperative. Afebrile. Rating pain in right leg up to 3/10 and managed with scheduled Tylenol. Up with SBA, walker and gait belt. Tolerating clear liquids with no nausea. Loose, dark BM x1. 1 unit of PRBC given with no s/s of reaction noted.
[2024-12-14] VITALS (9 sets, daily range): BP systolic 113–160; BP diastolic 61–83; PULSE 62–78; RESP 16–18; TEMP 36.4–36.9; O2SAT 91–97; BMI 26.9
[2024-12-14 00:37] LABS: Hemoglobin* 8.3 gm/dL (13.5-17.5)
[2024-12-14] MEDS: MELATONIN 3 MG TABLET PO (01:17)
[2024-12-14] MEDS: ACETAMINOPHEN 325 MG TABLET 975 MG PO ×3 (05:53→18:11)
[2024-12-14] MEDS: PANTOPRAZOLE SODIUM 40 MG INJ IVP (06:25)
--- NOTE | 2024-12-14 06:45 | PC.NURSE ---
Arrived to find the patient in bed receiving the last part of a blood transfusion; one unit. They appeared well at ease, alert and oriented, and vitally stable. Assessing his right leg found a dressing going down the majority of his leg which is clean dry and intact. No complaint of pain.?No swelling or discoloration. His right pedal pulse is weaker than his left. His right ankle appears larger than the left but is non-pitting. Clear breath sounds. No GI/ complaints. The outgoing nurse let me know the patient has suffered from retention in the past. After his transfusion his hemoglobin andrey to 8.30. The pre-transfusion reading was a 7.2 hemoglobin. Morning labs pending.?
[2024-12-14 06:52] LABS: Hematocrit* 25.4 % (37.0-53.0); Hemoglobin* 8.3 gm/dL (13.5-17.5); Immature Granulocytes Abs Auto 0.02 K/uL (0.00-0.30); Immature Granulocytes Pct Auto 0.2 %; Lymphocytes Absolute Auto 1.50 K/uL (0.90-2.90); Mean Corpuscular HGB Conc 33 gm/dL (32-36); Mean Corpuscular Hemoglobin 32 pg (26-34); Mean Corpuscular Volume 98 fL (80-100); RDW Coefficient of Variation % 14.4 % (11.5-15.5); Red Blood Count* 2.60 m/uL (4.30-5.90); Slide Review Reflex No; White Blood Count* 10.06 K/uL (4.50-11.00)
[2024-12-14 07:10] LABS: Albumin* 2.9 g/dL (3.3-5.0); Chloride* 105 mmol/L (96-114); Potassium* 4.8 mmol/L (3.6-5.1); Sodium* 133 mmol/L (135-149)
[2024-12-14 07:13] LABS: Alanine Aminotransferase* 16 U/L (4-50); Alkaline Phosphatase* 112 U/L (40-150); Anion Gap 5 mEq/L (7-15); Aspartate Amino Transferase* 33 U/L (12-35); Bilirubin Total* 1.2 mg/dL (0.1-1.5); Blood Urea Nitrogen* 56 mg/dL (7-30); Calcium* 9.6 mg/dL (8.4-10.6); Carbon Dioxide* 23 mmol/L (20-32); Creatinine* 2.4 mg/dL (0.5-1.5); Est. Creatinine Clearance* 23.24; Estimated Glomerular Filt Rate 26 ml/min; Glucose* 137 mg/dL (60-115); Total Protein* 5.6 g/dL (6.0-8.3)
--- NOTE | 2024-12-14 09:26 | P.ANES_ITS ---
Anesthesia Charges Start Date/Time Anesthesia Start Date: 12/14/24 Anesthesia Start Time: 09:10 Stop Date/Time Anesthesia Stop Date: 12/14/24 Anesthesia Stop Time: : Coding CPT Codes CPT Codes: ANES UPR GI NDSC PX NOS - 19441 ([id number]) P3 - PATIENT W/SEVERE SYS DISEASE, QK - PSYCHOTHERAPIST COUNSELOR 2-4 CNCRNT ANES PROC, QX - BSW SVC W/ MD MED DIRECTION
--- NOTE | 2024-12-14 09:26 | W.ANESCHARGE ---
Anesthesia Charges Start Date/Time Anesthesia Start Date: 12/14/24 Anesthesia Start Time: 09:10 Stop Date/Time Anesthesia Stop Date: 12/14/24 Anesthesia Stop Time: : Coding CPT Codes CPT Codes: ANES UPR GI NDSC PX NOS - 81813 ([id number]) P3 - PATIENT W/SEVERE SYS DISEASE, QK - DIGITAL COORDINATOR 2-4 CNCRNT ANES PROC, QX - HAZARDOUS WASTE MATERIAL TECHNICIAN SVC W/ MD MED DIRECTION
--- NOTE | 2024-12-14 09:55 | P.IMPN_ITS ---
Assessment and Plan Assessment and plan (1) Anemia: Problem comment: - new diagnosis (Hgb 8.1 on 12/13, previously 12-13) - likely UGIB, notably was on ASA from 11/25/24-12/09/24 [place] [facility] [place] Discussed with General surgery, EGD shows duodenal ulcer, clotted without active bleed. No biopsies. H pylori added Continue PPI Hemoglobin stable at 8.3 following 1 unit PRBC, recheck in am Status: Acute (2) Acute upper gastrointestinal bleeding: Problem comment: - melanotic stools, Hgb 8.1 (baseline -) - clear liquid diet now, continue PPI, serial Hgb - EGD ordered 12/14 As above Status: Acute (3) Type 2 diabetes mellitus: Problem comment: - Hgb A1C 7.3 10/2024, on Glipizide Status: Acute (4) Chronic kidney disease (CKD), stage 4: Problem comment: - baseline creatinine 2.5, follows with Radha of Nephrology, stable Status: Acute Plan Continue PPI. H pylori pending. Recheck hemoglobin in the morning. If remains stable and clinically appropriate, consider discharge to home Total Time Spent Total Time Spent: Today I spent 45 minutes seeing the patient, reviewing Expanse and EPIC notes/diagnostics, discussing the care plan with our care time that includes social work, PT/OT, pharmacy, RT, chcf and documenting my impressions and plan in the medical record. Subjective Date Seen: 12/14/24 Interval history: Patient is seen lying reclined in bed, at bedside. Sleepy following EGD. Otherwise comfortable. No nausea. Has just ordered breakfast. Discussed findings of EGD as well as plan with . Exam Narrative: Exam Narrative: PHYSICAL EXAM General: Sleepy otherwise NAD HEENT: Normocephalic, atraumatic, sclera white, EOMI, oral mucosa moist Cardiovascular: RRR, S1S2. No pitting edema Pulmonary: CTA bilaterally without rhonchi, rales, expiratory wheezes. No dyspnea on room air Abdominal: Soft, nondistended, NTTP, no guarding Neurological: Sleepy post EGD Extremities: No gross joint deformity or swelling. AROMI. Neurovascularly intact Skin: Warm, dry. Const: Vital Signs, click to edit/add: Vital Signs - 24 hr 12/13/24 13:23 12/13/24 14:13 12/13/24 14:14 Temperature 97.8 F Pulse Rate 82 81 Pulse Rate [Pulse Oximeter] 68 Respiratory Rate 20 16 Blood Pressure 140/70 H Blood Pressure [Ri ght Arm] Blood Pressure [Ri ght Upper Arm] 129/65 Pulse Oximetry 98 97 97 Oxygen Delivery Me thod Room Air Room Air 12/13/24 14:15 12/13/24 14:30 12/13/24 14:45 Temperature Pulse Rate 80 83 82 Pulse Rate [Pulse Oximeter] Respiratory Rate 21 21 Blood Pressure Blood Pressure [Ri ght Arm] Blood Pressure [Ri ght Upper Arm] Pulse Oximetry 97 97 98 Oxygen Delivery Me thod 12/13/24 15:00 12/13/24 15:10 12/13/24 15:15 Temperature Pulse Rate 82 83 Pulse Rate [Pulse Oximeter] Respiratory Rate 12 20 20 Blood Pressure 161/76 H Blood Pressure [Ri ght Arm] Blood Pressure [Ri ght Upper Arm] Pulse Oximetry 97 96 Oxygen Delivery Me thod 12/13/24 15:30 12/13/24 15:45 12/13/24 16:44 Temperature 98.0 F Pulse Rate 84 81 Pulse Rate [Pulse Oximeter] 82 Respiratory Rate 13 15 16 Blood Pressure Blood Pressure [Ri ght Arm] 164/81 H Blood Pressure [Ri ght Upper Arm] Pulse Oximetry 97 95 96 Oxygen Delivery Me thod Room Air 12/13/24 18:00 12/13/24 19:00 12/13/24 20:34 Temperature 97.7 F 97.8 F Pulse Rate 75 77 Pulse Rate [Pulse Oximeter] 67 Respiratory Rate 20 20 Blood Pressure 140/70 H Blood Pressure [Ri ght Arm] 131/62 Blood Pressure [Ri ght Upper Arm] Pulse Oximetry 95 98 Oxygen Delivery Me thod Room Air Room Air 12/13/24 20:55 12/13/24 21:25 12/13/24 21:55 Temperature 98.0 F 98.0 F 98.2 F Pulse Rate 70 71 71 Pulse Rate [Pulse Oximeter] Respiratory Rate 20 20 18 Blood Pressure 148/66 H 149/71 H 139/70 Blood Pressure [Ri ght Arm] Blood Pressure [Ri ght Upper Arm] Pulse Oximetry 98 98 97 Oxygen Delivery Me thod Room Air Room Air Room Air 12/13/24 22:25 12/13/24 23:00 12/13/24 23:05 Temperature 98.1 F 97.8 F 98.2 F Pulse Rate 72 67 Pulse Rate [Pulse Oximeter] 76 Respiratory Rate 18 18 18 Blood Pressure 155/72 H 125/65 Blood Pressure [Ri ght Arm] 152/73 H Blood Pressure [Ri ght Upper Arm] Pulse Oximetry 97 98 96 Oxygen Delivery Me thod Room Air Room Air Room Air 12/13/24 23:21 12/13/24 23:30 12/14/24 00:05 Temperature 97.5 F L Pulse Rate 72 69 Pulse Rate [Pulse Oximeter] 76 Respiratory Rate 18 Blood Pressure 152/73 H Blood Pressure [Ri ght Arm] Blood Pressure [Ri ght Upper Arm] Pulse Oximetry 95 Oxygen Delivery Me thod Room Air 12/14/24 03:20 12/14/24 07:00 Temperature 97.7 F 97.8 F Pulse Rate Pulse Rate [Pulse Oximeter] 72 73 Respiratory Rate 18 18 Blood Pressure Blood Pressure [Ri ght Arm] 139/61 141/69 H Blood Pressure [Ri ght Upper Arm] Pulse Oximetry 94 96 Oxygen Delivery Mo thod Room Air Room Air Labs Labs: Laboratory Results - last 24 hr 12/13/24 12/13/24 12/13/24 13:33 13:35 14:55 WBC 14.07 H RBC 2.52 L Hgb 8.1 L Hct 24.8 L MCV 98 MCH 32 MCHC 33 RDW Coeff of Jose Antonio 14.3 Plt Count 331 Neut % (Auto) 76.6 H Lymph % (Auto) 10.7 L [place] % (Auto) 9.5 Eos % (Auto) 1.8 Baso % (Auto) 0.3 Neut # (Auto) 10.80 H Lymph # (Auto) 1.50 [place] # (Auto) 1.30 H Eos # (Auto) 0.30 Baso # (Auto) 0.00 Abs Immat Gran (auto) 0.20 Imm/Tot Granulo (auto) 1.1 Sodium 133 L Potassium 4.3 Chloride 105 Carbon Dioxide 21 Anion Gap 7 BUN 61 H Creatinine 2.5 H Estimated Creat Clear 22.31 Estimated GFR 25 Glucose 205 H Lactate 1.9 Calcium 10.1 Total Bilirubin 0.8 AST 36 H ALT 19 Alkaline Phosphatase 139 Total Protein 6.3 Albumin 3.4 Stool Occult Blood Positive Stool H. pylori Ag POC Glucose 204 H Blood Type B Positive Antibody Screen NEGATIVE Crossmatch ([facility]) See Detail 12/13/24 12/13/24 12/14/24 18:00 21:15 00:20 WBC RBC Hgb 7.2 L* 8.3 L Hct MCV MCH MCHC RDW Coeff of Jose Antonio Plt Count Neut % (Auto) Lymph % (Auto) [place] % (Auto) Eos % (Auto) Baso % (Auto) Neut # (Auto) Lymph # (Auto) [place] # (Auto) Eos # (Auto) Baso # (Auto) Abs Immat Gran (auto) Imm/Tot Granulo (auto) Sodium Potassium Chloride Carbon Dioxide Anion Gap BUN Creatinine Estimated Creat Clear Estimated GFR Glucose Lactate Calcium Total Bilirubin AST ALT Alkaline Phosphatase Total Protein Albumin Stool Occult Blood Stool H. pylori Ag Negative POC Glucose Blood Type Antibody Screen Crossmatch ([facility]) 12/14/24 05:51 WBC 10.06 RBC 2.60 L Hgb 8.3 L Hct 25.4 L MCV 98 MCH 32 MCHC 33 RDW Coeff of Jose Antonio 14.4 Plt Count 272 Neut % (Auto) 70.9 Lymph % (Auto) 14.6 L [place] % (Auto) 9.6 Eos % (Auto) 4.1 Baso % (Auto) 0.6 Neut # (Auto) 7.13 H Lymph # (Auto) 1.50 [place] # (Auto) 1.00 H Eos # (Auto) 0.41 Baso # (Auto) 0.06 Abs Immat Gran (auto) 0.02 Imm/Tot Granulo (auto) 0.2 Sodium 133 L Potassium 4.8 Chloride 105 Carbon Dioxide 23 Anion Gap 5 L BUN 56 H Creatinine 2.4 H Estimated Creat Clear 23.24 Estimated GFR 26 Glucose 137 H Lactate Calcium 9.6 Total Bilirubin 1.2 AST 33 ALT 16 Alkaline Phosphatase 112 Total Protein 5.6 L Albumin 2.9 L Stool Occult Blood Stool H. pylori Ag POC Glucose Blood Type Antibody Screen Crossmatch ([facility])
--- NOTE | 2024-12-14 10:09 | P.ANES_ITS ---
Anesthesia Charges Start Date/Time Anesthesia Start Date: 12/14/24 Anesthesia Start Time: 09:10 Stop Date/Time Anesthesia Stop Date: 12/14/24 Anesthesia Stop Time: :25 Summary Extremes of Age - Over 70 or under 1: MDA Coding CPT Codes CPT Codes: ANES UPR GI NDSC PX NOS - 90826 ([id number]) P3 - PATIENT W/SEVERE SYS DISEASE, QX - COPER HAND SVC W/ MD MED DIRECTION, QK - PIT LABORER 2-4 CNCRNT ANES PROC Additional Codes: Summary - Extremes of Age - Over 70 or under 1: MDA ([id number])
--- NOTE | 2024-12-14 10:09 | W.ANESCHARGE ---
Anesthesia Charges Start Date/Time Anesthesia Start Date: 12/14/24 Anesthesia Start Time: 09:10 Stop Date/Time Anesthesia Stop Date: 12/14/24 Anesthesia Stop Time: :25 Summary Extremes of Age - Over 70 or under 1: MDA Coding CPT Codes CPT Codes: ANES UPR GI NDSC PX NOS - 54310 ([id number]) P3 - PATIENT W/SEVERE SYS DISEASE, QX - IMPORT EXPORT COORDINATOR SVC W/ MD MED DIRECTION, QK - BATH STEWARD/STEWARDESS 2-4 CNCRNT ANES PROC Additional Codes: Summary - Extremes of Age - Over 70 or under 1: MDA ([id number])
[2024-12-14] MEDS: SODIUM CHLORIDE 0.9 % (FLUSH) 10 ML SYRINGE 5 ML IVF ×2 (10:12→20:48)
[2024-12-14] MEDS: OLMESARTAN MEDOXOMIL 20 MG TABLET 40 MG PO (10:12)
[2024-12-14] MEDS: METOPROLOL SUCCINATE (XL) 25 MG TAB PO (10:12)
[2024-12-14 16:33] LABS: H pylori Ag Stool* Negative (Negative)
--- NOTE | 2024-12-14 18:15 | PC.NURSE ---
End of Shift ([id number]): Patient pleasant and cooperative. Patient vitally stable, lungs clear, BS WNL, IVs SL and intact. Patient rates right leg pain 3/10, only scheduled tylenol given. Patients right femur dressing C/D/I. Patient has been sleeping majority of shift but did wake up for dinner. Patient tolerating regular diet, and reports food is tasting better.Patient has not used the toilet this shift. Tele=NSR with occasional PVCs/PACs.
[2024-12-14] MEDS: ROSUVASTATIN CALCIUM 10 MG TABLET PO (20:48)
[2024-12-15] MEDS: ACETAMINOPHEN 325 MG TABLET 975 MG PO ×2 (00:18→05:58)
[2024-12-15 02:20] VITALS: BP 153/76; PULSE 76; RESP 16; TEMP 36.6; O2SAT 98
[2024-12-15 05:00] VITALS: BMI 27.0
[2024-12-15] MEDS: PANTOPRAZOLE SODIUM 40 MG INJ IVP (05:58)
[2024-12-15 06:39] LABS: Hematocrit* 25.0 % (37.0-53.0); Hemoglobin* 8.3 gm/dL (13.5-17.5); Mean Corpuscular HGB Conc 33 gm/dL (32-36); Mean Corpuscular Hemoglobin 32 pg (26-34); Mean Corpuscular Volume 97 fL (80-100); Red Blood Count* 2.58 m/uL (4.30-5.90); White Blood Count* 9.75 K/uL (4.50-11.00)
--- NOTE | 2024-12-15 06:46 | PC.NURSE ---
Arrived at 1945 to find the patient in bed asleep and with his at the bedside. His spouse reports the patient sleeping over the day into the evening to be his normal. Ultimately alert and oriented at this time and onwards. Vitally stable. The patient has a dressing going all the way down his leg on the outer right leg from a recent bone break and repair. Able to ambulate at his baseline strength and can move in bed without assistance. Requires the use of a walker for stability. Continent of both bowel and bladder. His stool is malodorous and comes out in frilled pieces, black and soft. No nausea or pain. Scheduled Tylenol keeps his discomfort in check, per the patient. ?No other major developments overnight. ??
[2024-12-15 06:47] LABS: Chloride* 105 mmol/L (96-114); Potassium* 4.4 mmol/L (3.6-5.1); Sodium* 132 mmol/L (135-149)
[2024-12-15 06:48] LABS: Slide Review Reflex No
[2024-12-15 06:50] LABS: Anion Gap 6 mEq/L (7-15); Blood Urea Nitrogen* 51 mg/dL (7-30); Calcium* 9.4 mg/dL (8.4-10.6); Carbon Dioxide* 21 mmol/L (20-32); Creatinine* 2.4 mg/dL (0.5-1.5); Est. Creatinine Clearance* 23.24; Estimated Glomerular Filt Rate 26 ml/min; Glucose* 153 mg/dL (60-115)
[2024-12-15 06:51] VITALS: PULSE 79
[2024-12-15 07:30] VITALS: BP 151/84; PULSE 76; RESP 18; TEMP 36.6; O2SAT 95
--- NOTE | 2024-12-15 08:15 | P.DS_ITS ---
DS: Providers Provider Date Seen: 12/15/24 Date of admission: 12/13/24 15:53 Primary care physician: Lisandro Garcia MD Admitting Clinician: Garry Rodriguez MD Consults: 12/13/24 16:59 Consult to Nutrition [CONS] Routine Comment: Reason for consult:: Miscellaneous Comment: GI Bleed General Surgery, Kassy Temple MD EGD Attending Physician on discharge: Lucinda Marquez, [facility], PA-C [facility] Date of Discharge: 12/15/24 DS: Diagnosis Discharge Diagnosis (1) Anemia: Status: Acute Problem details: - new diagnosis (Hgb 8.1 on 12/13, previously -) - likely UGIB, notably was on ASA from 11/25/24-12/09/24 after surgery at [facility] Acute blood loss anemia, stable, in setting of duodenal ulcer now clotted as noted on EGD. Status post femur fracture with repair and aspirin therapy. Hemoglobin stable at 8.3 prior to discharge. (2) Acute upper gastrointestinal bleeding: Status: Acute Problem details: - melanotic stools, Hgb 8.1 (baseline 04-16) - clear liquid diet now, continue PPI, serial Hgb - EGD ordered General surgery consulted, EGD completed showing duodenal ulcer, clotted, no active bleed. Hemoglobin remained stable at 8.3. Outpatient follow-up PCP (3) Type 2 diabetes mellitus: Status: Acute Problem details: - Hgb A1C 7.3 10/2024, on Glipizide (4) Chronic kidney disease (CKD), stage 4: Status: Acute Problem details: - baseline creatinine 2.5, follows with [facility], stable (5) Duodenal ulcer: Status: Acute Problem details: As found on EGD with Dr. Temple. Clotted, no active bleed. No biopsies. H pylori negative. Source of GI bleed, acute blood loss anemia. On discharge, continue PPI for 1 month. Avoid NSAIDs. Resume usual diet. Outpatient follow-up with PCP with repeat hemoglobin. DS: Summary Hospital Course Hospital Course: Course of care and details as noted above. Acute blood loss anemia in setting of GI bleed, duodenal ulcer. Continue on PPI for 1 month. Avoid NSAIDs. Outpatient follow-up with PCP with repeat hemoglobin. Remainder of chronic medical comorbidities were monitored and managed with home medications. Status at Discharge Functional status at discharge: independent ambulation Overall status at discharge: patient is back to baseline Time Spent with Patient Time attestation: Total time spent providing and/or coordinating discharge services: Time spent: Greater than 30 minutes Exam Narrative: Exam Narrative: PHYSICAL EXAM General: Pleasant, conversant, NAD Cardiovascular: RRR Pulmonary: No dyspnea Neurological: Alert, answering questions appropriately Skin: Warm, dry. Const: Vital Signs, click to edit/add: Vital Signs - 24 hr 12/14/24 10:27 12/14/24 14:52 12/14/24 15:46 Temperature 98.0 F 98.4 F Pulse Rate 62 Pulse Rate [Pulse Oximeter] 76 62 Respiratory Rate 18 18 Blood Pressure [Ri ght Arm] 160/83 H 120/61 Pulse Oximetry 96 97 Oxygen Delivery Me thod Room Air Room Air 12/14/24 15:46 12/14/24 19:35 12/14/24 22:50 Temperature 97.9 F 98.5 F Pulse Rate Pulse Rate [Pulse Oximeter] 62 65 78 Respiratory Rate 18 16 18 Blood Pressure [Ri ght Arm] 113/63 139/64 Pulse Oximetry 94 91 Oxygen Delivery Me thod Room Air Room Air 12/14/24 22:57 12/15/24 02:20 12/15/24 06:51 Temperature 98 F Pulse Rate 66 79 Pulse Rate [Pulse Oximeter] 76 Respiratory Rate 16 Blood Pressure [Ri ght Arm] 153/76 H Pulse Oximetry 98 Oxygen Delivery Me thod Room Air 12/15/24 07:30 12/15/24 07:30 Temperature 97.8 F Pulse Rate Pulse Rate [Pulse Oximeter] 76 76 Respiratory Rate 18 18 Blood Pressure [Ri ght Arm] 151/84 H Pulse Oximetry 95 Oxygen Delivery Me thod Room Air DS: Data Data Completed and Pending Labs on day of discharge: Labs from last 24 hours 12/15/24 12/14/24 06:10 09:29 WBC 9.75 RBC 2.58 L Hgb 8.3 L Hct 25.0 L MCV 97 MCH 32 MCHC 33 Plt Count 265 Sodium 132 L Potassium 4.4 Chloride 105 Carbon Dioxide 21 Anion Gap 6 L BUN 51 H Creatinine 2.4 H Estimated Creat Clear 23.24 Estimated GFR 26 Glucose 153 H Calcium 9.4 Stool H. pylori Ag Negative Discharge Plan Discharge Disposition: Home, Self-Care Date of Admission: 12/13/24 15:53 Attending Provider on Discharge: Lucinda Marquez Primary Care Provider: Lisandro Garcia Condition: Improved Anticipated Discharge Date/Time: 12/15/24 08:07 Discharge Medications: New omeprazole 20 mg capsule,delayed release(DR/EC) 20 mg PO DAILY Qty: 30 0RF Continued olmesartan 40 mg tablet 40 mg PO DAILY metoprolol succinate 25 mg tablet extended release 24 hr 25 mg PO DAILY glipizide 2.5 mg tablet extended release 24hr 2.5 mg PO DAILY ascorbic acid (vitamin C) 1,000 mg capsule 1 g PO DAILY cholecalciferol (vitamin D3) 125 mcg (5,000 unit) capsule 125 mcg PO DAILY omega 6-gzu-lzm-fish oil [Fish Oil] 1,000 mg (120 mg-180 mg) capsule 1 cap PO DAILY sildenafil [Viagra] 50 mg tablet 50 mg PO DAILY PRN Rx Instructions: administer 30 minutes to 4 hours before activity acetaminophen 500 mg capsule 500 - 1,000 mg PO Q6H MDD 3000mg PRNQty: 100 0RF (DME) True Metrix Glucose Test Strip Strip MISCELLANEOUS DAILY rosuvastatin 10 mg tablet 10 mg PO HS Discharge Orders: Discharge Order (Routine); Ordered 12/15/24 Ordered By: Lucinda Marquez Patient Education: Omeprazole (By mouth), Gastrointestinal Bleeding (DC) Additional Instructions: Take omeprazole (PPI) daily for one month for your duodenal ulcer. HPylori is negative. Avoid NSAIDs (aspirin, aleve, advil, ibuprofen, naproxen). Activity Level: No Restrictions and Activity as Tolerated Discharge Diet: Diabetic Follow Up Appointments: Lisandro Garcia MD [Primary Care Provider, Family Practice] - 12/20/24 1:40 pm [facility] Forms: [facility] Info Instructions
[2024-12-15] MEDS: OLMESARTAN MEDOXOMIL 20 MG TABLET 40 MG PO (08:44)
[2024-12-15] MEDS: METOPROLOL SUCCINATE (XL) 25 MG TAB PO (08:44)
--- NOTE | 2024-12-15 09:29 | PC.SOCIAL ---
Discharge planning/late entry: general worker met with the pt and his on 12/14/2024 and discussed pt's discharge plans for going home after the hospital. Pt feels fine going home with his and is very much looking forward to it. Pt and his have n concerns with returning home after this hospital stay discharge. Social work to follow-up as needed.
--- NOTE | 2024-12-15 09:43 | PC.NURSE ---
discharge. pt has been pleasant,. he is alert x4. right leg pain, 3/10 and with scheduled Tylenol. Up with SBA, walker and gait belt. he is eating, drinking and voiding with no problems. no BM. went over discharge packet with pt and . went over medication, instructions, education and appointments. where d/c x2. tele was d/c. he got a w/c ride to his car.
== END 2024-12-15 09:49 | disposition home or self-care (01) | DRG 811 ==
LOC: ED 15:33 → MEDSURG 15:53
PROVIDERS: Family Medicine; Physician Assistant; Admitting Provider Family Medicine; Emergency Provider Emergency Medicine; PCP Family Medicine; Visit Provider Family Medicine
DX: D62 Acute posthemorrhagic anemia (principal); K26.0 Acute duodenal ulcer with hemorrhage; K26.4 Chronic or unspecified duodenal ulcer with hemorrhage; N18.4 Chronic kidney disease, stage 4 (severe); Z79.82 Long term (current) use of aspirin; I12.9 Hypertensive chronic kidney disease with stage 1 through stage 4 chronic kidney disease, or unspecified chronic kidney disease; E11.22 Type 2 diabetes mellitus with diabetic chronic kidney disease; E11.65 Type 2 diabetes mellitus with hyperglycemia; Z79.84 Long term (current) use of oral hypoglycemic drugs; M97.01XD Periprosthetic fracture around internal prosthetic right hip joint, subsequent encounter; I25.2 Old myocardial infarction; I25.10 Atherosclerotic heart disease of native coronary artery without angina pectoris; Z95.5 Presence of coronary angioplasty implant and graft
CPT/HCPCS: 00731; 36415; 36430; 43235; 80048; 80053; 82270; 82947; 83605; 85018; 85025; 85027; 86850; 86900; 86901; 86922; 87338; 93005; 99100; 99284; 99285; A9270; J2470; J2704; J3490; J7030; P9016

== ENCOUNTER 2024-12-21 07:47 | Outpatient (CLI) | payer MEDICARE, BC, SELFPAY | END 2024-12-21 07:48 | disposition home or self-care (01) | LOC: AMB 12-22 13:34 | PROVIDERS: PCP Family Medicine; Visit Provider Family Medicine | DX: K92.1 Melena (principal) | CPT/HCPCS: A0425; A0429 ==

== ENCOUNTER 2024-12-21 08:12 | Inpatient (IN) | payer MEDICARE, BC, SELFPAY ==
--- OUTSIDE RECORDS SUMMARY | 2024-11-08 10:30 | XMS_ITS | Encounter Summary ---
Author Organization [facility] Address [address] [place] [address] Care Team Providers Care Materials Engineer Name Role Phone Lisandro Garcia MD Primary Care Provider [phone] Reason for Visit * Reason Comments Follow-up Encounter Details Date Type Department Care Team (Late st Contact Info) Description 11/08/2024 10:30 AM CDT Office [facility] [address] [place] [address] Solitario Garcia MD [address] [place] [address] Chronic kidney disease stage 4 [...] Braydon Allen Date of : 1940 Chart: [id number] PCP: Lisandro Garcia MD Date of Service: [...] obstruction. His Cr trend has been 1.1-1.2from 8223-9443; 1.1-1.6 from 3098-9569 -> 2.0 on 02/10/23 and now 1.9-2.3 [...] our shared goal. 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 cholecalciferol (VITAMIN D-3) 250 MCG (66434 UT) capsule Ramsey Mccarthy MD Take 125 [...] by mouth 1 (one) time each day [place] 3 1000 MG capsule Ramsey Mccarthy MD [...] . Solitario Garcia MD [facility] documented in this encounter Plan of Treatment [...] (HCC) documented in this encounter Care Teams Materials Engineer Relationship Specialty Start Date End Date Lisandro Garcia MD [address] [place] [address] PCP - General Family Medicine 05/11/24 documented as of this encounter
[2024-12-21] VITALS (53 sets, daily range): BP systolic 113–167; BP diastolic 55–89; PULSE 80–108; RESP 16–18; TEMP 36.1–36.7; O2SAT 96–100; BMI 27.3; BMI 28.7
--- OUTSIDE RECORDS SUMMARY | 2024-12-21 08:15 | XMS_ITS | Clinical Summary ---
Author Organization [facility] Address [address] [facility] [place] [address] Phone Care Team Providers Care Implementation Project Manager Name Role Phone Lisandro Garcia MD Primary Care Provider [phone] Allergies Active Allergy Reactions Criticality Noted Date Comments Adhesive Tape Rash Low 09/02/2018 Atorvastatin Diarrhea High 11/22/2021 Lisinopril Diarrhea 02/13/2023 Other 05/13/2024 Oxycodone Other (see comments) 08/20/2017 Pt reported Pseudoephedrine Other (see comments) 05/13/2024 Medications ascorbic acid (VITAMIN C) 1000 MG tablet Take 1,000 mg by mouth in the morning. Active cholecalciferol (VITAMIN D-3) 250 MCG (60803 UT) capsule Take 125 mcg by mouth 1 (one) time each day Active glipiZIDE (GLUCOTROL XL) 2.5 MG 24 hr tablet Take 2.5 mg by mouth in the morning. 04/13/2024 Active olmesartan (BENICAR) 40 MG tablet Take 20 mg by mouth 1 (one) time each day 05/11/2024 Active Roll 3 1000 MG capsule Take 1 capsule [...] in Pancreas noted on CT at [facility] in 05/2018. Pancreatic MRI recommend to follow up on this area in 05/2019. Hypertensive chronic kidney disease with stage 1 through stage 4 chronic kidney disease, or unspecified chronic kidney disease 08/31/2018 Coronary arteriosclerosis 08/16/2017 Overview (05/14/2024): He had a stent placed in the diagonal branch of his left anterior descending artery on 01/03/2005 at [facility]. Hyperlipidemia 05/18/2012 Encounters Date Type Department Care Team Description 11/08/2024 10:30 AM CDT Office Visit [facility] [address] [place] [address] Solitario Garcia MD Chronic kidney disease [...] [place] [address] [place] [address] Stacey Wu RN 10/18/2024 Telephone [facility] [address] [place] [phone] Stacey Wu RN from Last 3 Months [...] ORDERABLES Final Re sul Performing Organization Address [facility] Co de Phone Number [facility] [...] Solitario Garcia MD LAB BLOOD ORDERABLES Final [facility] Performing Organization Address [facility] de Phone Number [facility] from Last 3 Months Insurance [place] [address] Care Teams Implementation Project Manager Relationship Specialty Start Date End Date Lisandro Garcia MD [address] [place] [address] PCP - General Family Medicine 05/11/24
--- OUTSIDE RECORDS SUMMARY | 2024-12-21 08:16 | XMS_ITS | Clinical Summary ---
Author Organization [employer] [facility] Address [address] [place] [address] Care Team Providers Care Project Product Manager Name Role Phone Lisandro Garcia MD [...] than 300cc 100 Each 6 3 Active Ianbo-3-XSU-EPA-Fis h Oil (Fish OiL) 1,000 mg (120 [...] a meal. 90 Tablet 1 5 Active omeprazole (PRILOSEC) 20 mg Delayed-Release capsule Take 1 Capsule by mouth once daily. 5 Active Active Problems Problem Noted Date Diagnosed Date Frailty 12/20/2024 Proteinuria 05/11/2024 CKD (chronic kidney disease) stage 4, GFR 15-29 ml/min 06/05/2023 Bilateral lower extremity edema 04/17/2023 Type 2 diabetes mellitus wit h stage 3 chronic kidney disease, unspecified whether fpc insulin use, unspecified whether stage 3a or 3b CKD 09/09/2022 Urinary retention 12/19/2021 Positive for macroalbuminuria 12/19/2021 Erectile dysfunction 11/14/2021 Pancreatic mass 09/07/2018 Overview (09/07/2018): Cystic mass in Pancreas noted on CT at [facility] in 05/2018. Pancreatic MRI recommend to follow up on this area in 05/2019. Essential hypertension 08/31/2018 CAD: SETH to diag 01/200508/16/2017 Overview (11/26/2019): He had a stent placed in the diagonal branch of his left anterior descending artery on 01/03/2005 at [facility]. Type 2 diabetes mellitus wit hout [...] Encounters Date Type Department Care Team Description 12/20/2024 1:40 PM CDT Office Visit [facility] [address] [facility] [address] Lisandro Garcia MD Hospital F/U ([facility] (11/22/2024), [facility] (11/22/2024 - 11/26/2024), [facility] (11/26/2024 - 12/09/2024) - femur fracture/[facility] (12/13/2024 - 12/15/2024) bleeding ulcer) 12/20/2024 Travel 12/13/2024 Nurse Triage [facility] [address] [place] [address] Lisandro Garcia MD Blood In Stool 12/06/2024 Lab Requisition [facility] [phone] Elisa Inman NP 11/22/2024 Orders Only [facility] Scanner 1 scan: (1-Ord) [facility], XR FEMUR RT 2V, 11/22/2024 11/22/2024 Orders Only [facility] Scanner 1 scan: (1-Ord) [facility], XR KNEE RT 2V, 11/22/2024 10/18/2024 2:00 PM CDT Orders Only [facility] [address] [place] [address] [place], [place] [facility] 10/18/2024 Travel 10/12/2024 10:30 AM CDT Office Visit [facility] [address] [place] [address] [address] Lisandro Garcia MD Diabetes (6 month follow up) 10/12/2024 Travel 09/20/2024 11:00 AM CDT Orders Only [facility] [address] [place] [address] [address] [facility] [place] [facility] 09/20/2024 Travel from Last [...] on file Legal Sex Male 7:11 AM [employer] Gender Identity Not on file Sexual Orientation Not on file 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 Not on file Not on file Obstetrics History Last Filed Vital Signs Vital Sign Reading Time Taken Comments Blood Pressure 116/64 12/20/2024 1:48 PM CDT Pulse 87 12/20/2024 1:48 PM CDT Temperature 36.7 C (98 F) 06/21/2023 7:52 AM [employer] INSERTER Respiratory Rate 16 06/21/2023 7:52 AM [employer]ERTER Oxygen Saturation 95% 12/20/2024 1:48 PM CDT Inhaled Oxygen Concentration - - Weight 91.1 kg (200 lb 12.8 oz) 025 10:36 AM CDT Height 173.3 cm (5' 8.23) 10/12/2024 1 0:36 AM CDT Body Mass Index 30.33 10/12/2024 10:36 AM CDT Plan of Treatment Upcoming Encounters Date Type Department Care Team (Late st Contact Info) Description 01/17/2025 11:45 AM CDT Office Visit [facility] [address] [place] [address] Lisandro Garcia MD [address] [place] [address] Health Maintenance Due Date Last Done Comments [...] Priority Date/Time Associated Diagnosis Comments HEMOGLOBIN Routine 12/20/2024 2:20 PM CDT Acute blood loss as cause of postoperative anemia IRON PLUS IRON BINDING CAP Routine 12/20/2024 2:20 PM CDT Acute blood loss as cause of postoperative anemia FERRITIN Routine 12/20/2024 2:20 PM CDT Acute blood loss as cause of postoperative anemia BASIC METABOLIC PANEL Routine 12/20/2024 2:20 PM CDT Stage 3b chronic kidney disease (HC) CBC WITH AUTO DIFFERENTIAL Routine 12/07/2024 10:09 [...] from Last 3 Months Results * (ABNORMAL) IRON PLUS IRON BINDING CAP (12/20/2024 2:20 PM CDT) [facility] IRON, TOTAL 85 50 - 180 mcg/dL [facility] IRON BINDING CAPACITY 238(L) 250 - 425 mcg/dL (calc) [facility] % SATURATION 36 20 - 48 % (calc) [facility] Blood BLOOD SPECIMEN / Unknown 12/20/2024 2:20 PM CDT 12/20/2024 2:21 PM CDT us Lisandro Garcia MD CHEMISTRY Final Result Performing Organization Address City/[facility]/ZIP Co de Phone Number [facility] [address] [place] [address], [facility] [address] [facility] [place] [address] * (ABNORMAL) HEMOGLOBIN (12/20/2024 2:20 PM CDT) [facility] HEMOGLOBIN 8.5(L) 13.2 - 17.1 g/dL [facility] Blood BLOOD SPECIMEN / Unknown 12/20/2024 2:20 PM CDT 12/20/2024 2:21 PM CDT us Lisandro Garcia MD HEMATOLOGY Final Result [facility] [address] [facility] [place] [place] [address], [place] [phone] [facility] [address] [facility] [place] [address] * FERRITIN (12/20/2024 2:20 PM CDT) [facility] FERRITIN 285 24 - 380 ng/mL [facility] Blood BLOOD SPECIMEN / Unknown 12/20/2024 2:20 PM CDT 12/20/2024 2:21 PM CDT Lisandro Garcia MD CHEMISTRY Final Result [facility] [address] [place] [address], [facility] [address] [place] [address] * (ABNORMAL) BASIC METABOLIC PANEL (12/20/2024 2:20 PM CDT) Only the most recent of3 resultswithin the time period is included. GLUCOSE 211(H) 65 - 99 mg/dL [facility] Comment: Fasting reference interval For someone without known diabetes, a glucose value >125 mg/dL indicates that they may have diabetes and this should be confirmed with a follow-up test. UREA NITROGEN (BUN) 53(H) 7 - 25 mg/dL [facility] CREATININE 2.59(H) 0.70 - 1.22 mg/dL [facility] EGFR 24(L) > OR = 60 mL/min/1.7 3m2 [facility] BUN/CREATININE RATIO 20 6 - 22 (calc) [facility] SODIUM 139 135 - 146 mmol/L [facility] POTASSIUM 4.6 3.5 - 5.3 mmol/L [facility] CHLORIDE 109 98 - 110 mmol/L [facility] CARBON DIOXIDE 22 20 - 32 mmol/L [facility] ELECTROLYTE BALANCE 8 7 - 17 mmol/L (calc) [facility] CALCIUM 10.6(H) 8.6 - 10.3 mg/dL [facility] Blood BLOOD SPECIMEN / Unknown 12/20/2024 2:20 PM CDT 12/20/2024 2:21 PM CDT us Lisandro Garcia MD CHEMISTRY Final Result [facility] [address] [place] [address], [facility] [address] [place] [address] * (ABNORMAL) CBC WITH AUTO DIFFERENTIAL (12/07/2024 10:09 AM CDT) [facility] WHITE BLOOD COUNT 12.1(H) 4.5 - 11.0 thou/cu mm 12/07/2024 12:13 PM CDT [facility] RED BLOOD COUNT 2.85(L) 4.30 - 5.90 mil/cu mm 12/07/2024 12:13 PM CDT [facility] HEMOGLOBIN 9.0(L) 13.5 - 17.5 g/dL 12/07/2024 12:13 PM CDT [facility] HEMATOCRIT 27.0(L) 37.0 - 53.0 % 12/07/2024 12:13 PM CDT [facility] MCV 95 80 - 100 fL 12/07/2024 12:13 PM CDT [facility] MCH 31.6 26.0 - 34.0 pg 12/07/2024 12:13 PM CDT [facility] MCHC 33.3 32.0 - 36.0 g/dL 12/07/2024 12:13 PM CDT [facility] RDW 13.4 11.5 - 15.5 % 12/07/2024 12:13 PM CDT [facility] PLATELET COUNT 322 140 - 440 thou/cu mm 12/07/2024 12:13 PM CDT [facility] MPV 9.0 6.5 - 11.0 fL 12/07/2024 12:13 PM CDT [facility] NRBC 0.0 % 12/07/2024 12:13 PM CDT [facility] ABS NRBC 0.0 thou /cu mm 12/07/2024 12:13 PM CDT [facility] % NEUT 77.0 % 12/07/2024 12:13 PM CDT [facility] % LYMPH 8.9 % 12/07/2024 12:13 PM CDT [facility] % MONO 9.5 % 12/07/2024 12:13 PM CDT [facility] % EOS 3.7 % 12/07/2024 12:13 PM CDT [facility] % BASO 0.4 % 12/07/2024 12:13 PM CDT [facility] % IMMATURE GRAN (METAS,MYELOS,WI OS) 0.5 % 12/07/2024 12:13 PM CDT [facility] ABSOLUTE NEUTROPHILS 9.3(H) 1.7 - 7.0 thou/cu mm 12/07/2024 12:13 PM CDT [facility] ABSOLUTE LYMPHOCYTES 1.1 0.9 - 2.9 thou/cu mm 12/07/2024 12:13 PM CDT [facility] ABSOLUTE MONOCYTES 1.1(H) <0.9 thou/cu mm 12/07/2024 12:13 PM CDT [facility] ABSOLUTE EOSINOPHILS 0.4 <0.5 thou/cu mm 12/07/2024 12:13 PM CDT [facility] ABSOLUTE BASOPHILS 0.1 <0.3 thou/cu mm 12/07/2024 12:13 PM CDT [facility] ABSOLUTE IMMATURE GRANULOCYTES(MET ,MYELOS,PROS) 0.1 <0.3 thou/cu mm 12/07/2024 12:13 PM CDT [facility] Blood BLOOD SPECIMEN / Unknown Venipuncture / Unknown 12/07/2024 10:09 AM CDT 12/07/2024 11:50 AM CDT us Elisa Inman NP HEMATOLOGY Final Resul t [facility] [address] [place] [address] * SCAN-RADIOLOGY REPORT (11/22/2024 12:00 AM CDT) Only the most recent of2 resultswithin the time period is included. Anatomical Region Laterality Modality Other us Scanner OTHER Final Result * (ABNORMAL) HEMOGLOBIN A1C MONITORING (POCT) (10/12/2024 11:00 AM CDT) POC HEMOGLOBIN A1C 7.3(H) <6.0 % OF TOTAL HGB [facility] Comment: Any point of care results exhibiting inconsistency with the patient's clinical status should be repeated using a different testing method. Blood BLOOD SPECIMEN / Unknown 10/12/2024 11:00 AM CDT 10/12/2024 11:01 AM CDT Lisandro Garcia MD CHEMISTRY Final Result [facility] [address] [place] [address], [facility] [address] [place] [address] from Last 3 Months Insurance MEDICARE PART A HB ONLY MEDICARE PART B HB ONLY [place] PB ONLY [place] HB ONLY HC MEDICARE PPS [facility] [employer] VEHICLE INS Advance Directives * Full Code (Latest Code Status on File) Date Activated Date Inactivated Comments 06/20/2023 5:38 AM 06/21/2023 2:00 PM Should be di scussed pre operatively with anesthesia or surgeon Question Answer Comments Code Status Discussion: Not Discussed * Full Code Date Activated Date Inactivated Comments 01/03/2005 10:10 PM 01/05/2005 1:47 PM Care Teams Project Product Manager Relationship Specialty Start Date End Date Lisandro Garcia MD [address] [place] [address] PCP - General Family Practice 09/08/20
--- OUTSIDE RECORDS SUMMARY | 2024-12-21 08:16 | XMS_ITS | Encounter Summary ---
Author Organization [facility] Address [address] [place] [address] Care Team Providers Care Guidance Consultant Name Role Phone Lisandro Garcia MD Primary Care Provider [phone] Encounter Details Date Type Department Care Team (Late st Contact Info) Description 10/20/2024 Results Follow-Up [facility] [address] [place] [address] Stacey Wu, RN [address] [place] [address] Social History Tobacco Use Types [...] on filedocumented in this encounter Care Teams Guidance Consultant Relationship Specialty Start Date End Date Lisandro Garcia MD [address] [place] [address] PCP - General Family Medicine 05/11/24 documented as of this encounter
--- OUTSIDE RECORDS SUMMARY | 2024-12-21 08:16 | XMS_ITS | Encounter Summary ---
Author Organization [facility] Address [address] [place] [address] Care Team Providers Care Metalsmith Apprentice Name Role Phone Lisandro Garcia MD Primary Care Provider [phone] Encounter Details Date Type Department Care Team (Late st Contact Info) Description 09/06/2024 Orders Only [facility] [address] [place] [address] Solitario Garcia MD [address] [place] [address] Chronic kidney disease stage 4 [...] Garcia MD LAB BLOOD ORDERABLES Final [facility] Performing Organization Address [facility] Co de Phone Number [facility] [...] Solitario Garcia MD LAB BLOOD ORDERABLES Final [facility] Performing Organization Address [facility] de Phone Number [facility] documented in this encounter Visit Diagnoses Diagnosis Chronic kidney disease stage 4 (HCC) documented in this encounter Care Teams Metalsmith Apprentice Relationship Specialty Start Date End Date Lisandro Garcia MD [address] [place] [address] PCP - General Family Medicine 05/11/24 documented as of this encounter
--- NOTE | 2024-12-21 08:29 | ED.GENADULT ---
HPI - General Adult General Chief complaint: GI Bleed Stated complaint: GI bleeding Time Seen by Provider: 12/21/24 08:20 History of Present Illness HPI narrative: Patient reports one episode of bloody stool early this AM. Made it back into bed and had another episode. Patient reports blood all over though EMS report small smear. Patient was recently admitted for a GI bleed, had clinic follow up yesterday. Patient endorses weakness, no pain or nausea. 84-year-old man presenting to the emergency department with concern of upper GI bleed. Interview is complicated think difficulty with recall. Was admitted to this facility about a week ago with anemia and acute blood loss. Upper endoscopy done on 12/14/2024 showed a nonbleeding duodenal ulcer with clot in the 1st portion of the duodenum. Discharged to continue PPI for a month with avoidance of NSAIDs This morning had been up in his chair suddenly with urge to have a bowel movement tried make it to the bathroom ultimately did not quite with some black stool on the floor. Then to bed and had another episode of black stool along with urge to vomit but was not able to. Sounds like there was some small hematochezia as well. Now still feels weak. Recalls that he felt rather scared. They were concerned about lower GI bleed as well understandably. Is not having any abdominal pain. No associated currently. Related Data Home Medications ?Medication ?Instructions ?Recorded ?Confirmed ascorbic acid (vitamin C) 1,000 mg 1 g PO DAILY 07/16/23 12/21/24 capsule cholecalciferol (vitamin D3) 125 125 mcg PO DAILY 07/16/23 12/21/24 mcg (5,000 unit) capsule glipizide 2.5 mg tablet, extended 2.5 mg PO DAILY 07/16/23 12/21/24 release 24 hr omega 3-mmi-pki-fish oil 1,000 mg 1 cap PO DAILY 07/16/23 12/21/24 (120 mg-180 mg) capsule (Fish Oil) sildenafil 50 mg tablet (Viagra) 50 mg PO DAILY PRN 07/16/23 12/21/24 metoprolol succinate 25 mg 25 mg PO DAILY 06/28/24 12/21/24 tablet,extended release 24 hr olmesartan 40 mg tablet 40 mg PO DAILY 06/28/24 12/21/24 blood sugar diagnostic (True 12/13/24 12/13/24 Metrix Glucose Test Strip) rosuvastatin 10 mg tablet 10 mg PO HS 12/13/24 12/21/24 Previous Rx's ?Medication ?Instructions ?Recorded acetaminophen 500 mg capsule 500 - 1,000 mg (1 - 2 x 500 mg) PO 07/17/23 Q6H PRN #100 caps omeprazole 20 mg capsule,delayed 20 mg PO DAILY #30 caps 12/15/24 release Allergies Allergy/AdvReac Type Severity Reaction Status Date / Time pseudoephedrine (From Allergy Intermediate unable to Verified 12/21/24 11:10 Sudafed) urinate cat dander Allergy Unknown Verified 12/21/24 11:10 oxycodone Allergy Unknown hallucinati Verified 12/21/24 11:10 ons adhesive Allergy Rash Verified 12/21/24 11:10 atorvastatin AdvReac Diarrhea Verified 12/21/24 11:10 Review of Systems Status of ROS: Reports: 6 or more systems reviewed and unremarkable except as noted in History and below [facility] Medical History Pancreatic mass ?K86.89 - Other specified diseases of pancreas (ICD-10) Chronic kidney disease (CKD), stage 4 ?N18.4 - Chronic kidney disease, stage 4 (severe) (ICD-10) Traumatic tear of right rotator cuff ?S46.011A - Strain of muscle(s) and tendon(s) of the rotator cuff of right shoulder, initial encounter (ICD-10) MRSA infection ?A49.02 - Methicillin resistant Staphylococcus aureus infection, unspecified site (ICD-10) Arthritis ?M19.90 - Unspecified osteoarthritis, unspecified site (ICD-10) Type 2 diabetes mellitus ?E11.9 - Type 2 diabetes mellitus without complications (ICD-10) Myocardial infarction ?I21.9 - Acute myocardial infarction, unspecified (ICD-10) Hypertension ?I10 - Essential (primary) hypertension (ICD-10) Coronary artery disease ?I25.10 - Atherosclerotic heart disease of [place] coronary artery without angina pectoris (ICD-10) Surgical History 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) ?Z96.611 - Presence of right artificial shoulder joint (ICD-10) H/O arthroscopy of right knee (06/05/07) ?Z98.890 - Other specified postprocedural states (ICD-10) History of prostate surgery ?Z98.890 - Other specified postprocedural states (ICD-10) 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) ?Z96.651 - Presence of right artificial knee joint (ICD-10) H/O hernia repair (09/08/18) ?Z98.890 - Other specified postprocedural states (ICD-10) ?Z87.19 - Personal history of other diseases of the digestive system (ICD-10) History of cholecystectomy (08/17/17) ?Z90.49 - Acquired absence of other specified parts of digestive tract (ICD-10) H/O right coronary artery stent placement ?Z95.5 - Presence of coronary angioplasty implant and graft (ICD-10) History of right hip replacement (12/13/19) ?Z96.641 - Presence of right artificial hip joint (ICD-10) Social History Narrative: 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 Melissa is MDM. DNR/DNI What is your current living situation?: I presently have a place to live Problems where you live: no known problems Problems where you live details: N/A In the past 12 months, utilities in danger of being shut off: no In past 12 months, lack of transportation kept you from medical appts, meetings, work, or getting things needed for daily living: no In the past 12 mos, have been you worried that your food would run out before you had money to buy more?: never true In the past 12 mos, the food you bought just didn't last and you didn't have money to buy more?: never true Highest level of school completed/degree received: Master's degree Smoking Status: Never smoker How often do you have a drink containing alcohol: monthly or less AUDIT-C Alcohol total score: 1 Non-prescribed substance use: denies use Caffeine: Yes How often does anyone, including family, friends and others, physically hurt you: never How often does anyone, including family, friends and others, insult or talk down to you: never How often does anyone, including family, friends and others, threaten you with harm: never How often does anyone, including family, friends and others, scream or curse at you: never service: No Exam Narrative: Exam Narrative: Pleasant. Little hard of hearing. Hearing aids visible. It does seem to have some difficulty with recall. Mucous membranes do not look particularly pale at this time. Skin is sallow. Heart in mildly elevated rate in a regular rhythm with 2/6 systolic murmur. Abdomen is flat soft and nontender. Lower extremities are well perfused without edema. Is breathing easily with clear lungs. Return to examine anal area later. Clearly with maroonish stool staining perianal skin. No hemorrhoidal tissue or tags are noted. Const: Vital Signs, click to edit/add: Vital Signs - 24 hr 12/21/24 12:02 12/21/24 12:18 12/21/24 12:25 Temperature 97.4 F L Pulse Rate 104 H Pulse Rate [Right Radial] Respiratory Rate 16 Blood Pressure 140/67 H 125/58 L 125/58 L Blood Pressure [Ri ght Arm] Pulse [facility]xim[facility] 12:27 12/21/24 12:30 12/21/24 12:31 Temperature Pulse Rate 104 H 103 H 99 Pulse Rate [Right Radial] Respiratory Rate Blood Pressure 113/60 Blood Pressure [Ri ght Arm] Pulse Oximetry 98 97 96 [facility] 12/21/24 12:40 12/21/24 12:42 12/21/24 12:45 Temperature 97.4 F L Pulse Rate 105 H 100 96 Pulse Rate [Right Radial] Respiratory Rate 16 Blood Pressure 115/55 L 115/55 L Blood Pressure [Ri ght Arm] Pulse Oximetry 100 97 [facility] 12/21/24 12:47 12/21/24 13:00 12/21/24 13:02 Temperature Pulse Rate 100 104 H 104 H Pulse Rate [Right Radial] Respiratory Rate Blood Pressure 116/58 L 126/67 Blood Pressure [Ri ght Arm] Pulse Oximetry 98 97 96 Oxygen Delivery Mi thod 12/21/24 13:03 12/21/24 13:15 12/21/24 13:17 Temperature 97.6 F Pulse Rate 99 103 H 102 H Pulse Rate [Right Radial] Respiratory Rate 16 Blood Pressure 143/64 H Blood Pressure [Ri ght Arm] Pulse Oximetry 98 98 98 Oxygen Delivery Me thod 12/21/24 13:34 Temperature 97.0 F L Pulse Rate Pulse Rate [Right Radial] 102 H Respiratory Rate 16 Blood Pressure Blood Pressure [Ri ght Arm] 158/74 H Pulse Oximetry 97 Oxygen Delivery Me thod Room Air Documenting provider has reviewed patient's vital signs: yes Course Vital Signs Vital signs: Initial Vital Signs Pulse Rate 98 12/21/24 08:18 Respiratory Rate 16 12/21/24 08:18 Blood Pressure 138/57 L 12/21/24 08:18 Blood Pressure Mean 84 12/21/24 08:18 Pulse Oximetry 99 12/21/24 08:18 Vital Signs Pulse Rate 98 12/21/24 08:18 Respiratory Rate 16 12/21/24 08:18 Blood Pressure 138/57 L 12/21/24 08:18 Pulse Oximetry 99 12/21/24 08:18 Temperature 97.6 F 12/22/24 11:34 Pulse Rate 96 12/22/24 11:34 Respiratory Rate 18 12/22/24 11:34 Blood Pressure 138/72 12/22/24 11:34 Pulse Oximetry 95 12/22/24 11:34 Oxygen Delivery Method Room Air 12/22/24 11:34 Medications Administered Medications: Generic Name Dose Route Start Last Admin Trade Name Freq PRN Reason Stop Dose Admin Acetaminophen 1,300 mg 12/21/24 13:38 12/22/24 06:13 Acetaminophen 650 Mg Tablet Er PO 1,300 mg Q8H PRN Administration Pantoprazole Sodium 40 mg 12/22/24 09:00 12/22/24 08:25 Pantoprazole Sodium 40 Mg Inj IVP 40 mg DAILY BERNADETTE Administration Sodium Chloride 5 ml 12/21/24 21:00 12/22/24 08:26 Sodium Chloride 0.9 % (Flush) 10 Ml Syringe IVF 5 ml BID BERNADETTE Administration Discontinued Medications Generic Name Dose Route Start Last Admin Trade Name Freterence PRN Reason Stop Dose Admin Insulin Aspart 0 unit 12/21/24 17:30 12/22/24 08:27 Insulin Aspart 100 Unit/Ml SUBCUT Not Given ACHS BERNADETTE Protocol Pantoprazole Sodium 80 mg 12/21/24 10:47 12/21/24 13:05 Pantoprazole Sodium 40 Mg Inj IVP 12/21/24 10:48 80 mg ONCE ONE Administration Medical Decision Making MDM Narrative Medical decision making narrative: Appears to be experiencing further GI bleed. Either rather brisk from the duodenum again or perhaps a lower GI bleed. Will check labs to look for stability of hemoglobin. Anticipate serial hemoglobins at a minimum. No longer takes an aspirin nor anticoagulated otherwise. Does take a daily proton pump inhibitor and took a dose this morning. Initiating IV and normal saline. Initial hemoglobin returns at 6.5. Have requested type and cross for 2 units. Anticipate admission for transfusion and further exploration of source. Has been vitally stable. Discussed with hospitalist for admission. Discussed with surgery on-call. Accepting for admission. Would like yet abdominal imaging. Elevated BUN and creatinine. Appears about baseline with creatinine though at 2.5 in the setting of stage 4 chronic kidney disease and BUN elevation likely related to GI bleed. In discussion with hospitalist decided to proceed with triple phase abdominal imaging. Will hydrate. Further ordered for IV PPI No further events during time in the emergency department. Anticipate transfer to the floor. Medical Records Medical records reviewed: Yes I reviewed the patient's medical records Lab Data Lab results reviewed: Yes I reviewed the patient's lab results Labs: Lab Results 12/21/24 Range/Units 08:55 WBC 11.78 H (4.50-11.00) K/uL RBC 2.00 L (4.30-5.90) m/uL Hgb 6.5 L* (13.5-17.5) gm/dL Hct 20.3 L (37.0-53.0) % MCV 102 H (80-100) fL MCH 33 (26-34) pg MCHC 32 (32-36) gm/dL RDW Coeff of Jose Antonio 15.2 (11.5-15.5) % Plt Count 225 (140-440) K/uL Neut % (Auto) 83.7 H (42.0-72.0) % Lymph % (Auto) 5.4 L (20-44) % Major % (Auto) 9.1 (0.0-11.0) % Eos % (Auto) 0.6 (0.0-7.0) % Baso % (Auto) 0.3 (0.0-3.0) % Neut # (Auto) 9.90 H (1.7-7.0) K/uL Lymph # (Auto) 0.60 L (0.90-2.90) K/uL Major # (Auto) 1.10 H (0.00-0.90) K/UL Eos # (Auto) 0.10 (0.00-0.50) K/uL Baso # (Auto) 0.00 (0.00-0.30) K/uL Abs Immat Gran (auto) 0.10 (0.00-0.30) K/uL Imm/Tot Granulo (auto) 0.9 % Sodium 135 (135-149) mmol/L Potassium 4.9 (3.6-5.1) mmol/L Chloride 110 (96-114) mmol/L Carbon Dioxide 19 L (20-32) mmol/L Anion Gap 6 L (7-15) mEq/L BUN 64 H (7-30) mg/dL Creatinine 2.5 H (0.5-1.5) mg/dL Estimated Creat Clear 22.31 Estimated GFR 25 ml/min Glucose 205 H (60-115) mg/dL Calcium 10.2 (8.4-10.6) mg/dL Total Bilirubin 1.0 (0.1-1.5) mg/dL Direct Bilirubin 0.2 (0.0-0.5) mg/dL AST 25 (12-35) U/L ALT 16 (4-50) U/L Alkaline Phosphatase 119 (40-150) U/L Total Protein 5.2 L (6.0-8.3) g/dL Albumin 2.8 L (3.3-5.0) g/dL Blood Type B Positive Antibody Screen NEGATIVE Crossmatch (AHG) See Detail Discharge Plan Discharge Clinical Impression: GI (gastrointestinal bleed) Patient Disposition: Admitted As Inpatient Condition: Stable
[2024-12-21 09:12] LABS: Hematocrit 20.3 % (37.0-53.0); Immature Granulocytes Pct Auto 0.9 %; Mean Corpuscular HGB Conc 32 gm/dL (32-36); Mean Corpuscular Hemoglobin 33 pg (26-34); Mean Corpuscular Volume 102 fL (80-100); RDW Coefficient of Variation % 15.2 % (11.5-15.5); Red Blood Count 2.00 m/uL (4.30-5.90); White Blood Count* 11.78 K/uL (4.50-11.00)
[2024-12-21 09:15] LABS: Immature Granulocytes Abs Auto 0.10 K/uL (0.00-0.30)
[2024-12-21 09:17] LABS: Hemoglobin* 6.5 gm/dL (13.5-17.5); Lymphocytes Absolute Auto 0.60 K/uL (0.90-2.90); Slide Review Reflex No
[2024-12-21 09:19] LABS: Albumin* 2.8 g/dL (3.3-5.0); Chloride* 110 mmol/L (96-114); Sodium* 135 mmol/L (135-149)
[2024-12-21 09:20] LABS: Potassium* 4.9 mmol/L (3.6-5.1)
[2024-12-21 09:22] LABS: Alanine Aminotransferase* 16 U/L (4-50); Alkaline Phosphatase* 119 U/L (40-150); Anion Gap 6 mEq/L (7-15); Aspartate Amino Transferase* 25 U/L (12-35); Bilirubin Direct* 0.2 mg/dL (0.0-0.5); Bilirubin Total* 1.0 mg/dL (0.1-1.5); Blood Urea Nitrogen* 64 mg/dL (7-30); Carbon Dioxide* 19 mmol/L (20-32); Creatinine* 2.5 mg/dL (0.5-1.5); Est. Creatinine Clearance* 22.31; Estimated Glomerular Filt Rate 25 ml/min; Total Protein* 5.2 g/dL (6.0-8.3)
[2024-12-21 09:23] LABS: Calcium* 10.2 mg/dL (8.4-10.6); Glucose* 205 mg/dL (60-115)
--- NOTE | 2024-12-21 10:56 | CRLHL7_ITS ---
For Patients: As a result of the Century Cures Act, medical imaging exams and procedure reports are released immediately into your electronic medical record. You may view this report before your referring provider. If you have questions, please contact your health care provider. INDICATION: GI bleed. TECHNIQUE: CT abdomen and pelvis acquired without and with 95 cc of Isovue 370 IV contrast per GI bleed protocol. Sagittal, coronal and maximum intensity projection reformatted images submitted for review. COMPARISON: CT abdomen and pelvis 05/18/2018. FINDINGS: Lower chest: Mild bibasilar atelectasis. No pleural or pericardial effusions. Liver: Fatty change. No focal lesion. Spleen: Calcified granulomata. Pancreas: Cystic lesion in the body of the pancreas measuring 2.7 cm has slightly increased but is of doubtful significance. Pancreas is otherwise unremarkable. Gallbladder and bile ducts: Cholecystectomy. No ductal dilatation. Kidneys: Left greater than right scarring/atrophy, unchanged. No urolithiasis, hydronephrosis or suspicious lesion. Adrenal glands: Unremarkable. GI tract: Distal colonic diverticulosis without evidence of acute diverticulitis. No focal density or contrast blush to suggest cause or site of reported GI bleed. No obstruction or inflammatory change elsewhere. No free air, free fluid or suspicious fluid collection. Lymph nodes: No pathologic lymphadenopathy. Vascular structures: Atherosclerotic disease. No abdominal aortic aneurysm. 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 Pelvic Organs: Unremarkable. Bones: No acute or suspicious osseous abnormality. Right hip arthroplasty appears intact. Degenerative changes of the spine and left hip. IMPRESSION: 1. Colonic diverticulosis without evidence of acute diverticulitis. 2. No other finding to suggest cause for GI bleed. 3. Cystic lesion in the body of the pancreas measuring 2.7 cm can be further evaluated with pancreas protocol CT in 2 years, as indicated. Dictated by Justin Sandhu MD @ 12/21/2024 12:01:18 PM Please note that all CT scans at this facility use dose modulation, iterative reconstruction, and/or weight-based dosing when appropriate to reduce radiation dose to as low as reasonably achievable. Dictated by: Justin Sandhu MD @ 12/21/2024 12:01:39 (Electronically Signed)
[2024-12-21] MEDS: PANTOPRAZOLE SODIUM 40 MG INJ 80 MG IVP (13:05)
--- NOTE | 2024-12-21 13:09 | ED.NURSE ---
Blood stopped for protonix administration, then restarted.
--- NOTE | 2024-12-21 13:14 | PM.IMHP1 ---
Assessment and Plan Assessment and plan (1) ABLA (acute blood loss anemia): Problem comment: -8.5 yesterday at the [facility] lab. 6.5 today in the ED. -transfusing 2 units packed red blood cells -IV pantoprazole -I curb sided with general surgery and they agreed with admission and plan. If he continues to bleed we need to look at transferring him to we GI service were a more interventional approach to his ulcer can be done. Status: Acute (2) GI (gastrointestinal bleed): Problem comment: -from NSAID use: ASA from 11/25/24-12/09/24 after surgery at [facility] [place]. - EGD here 12/14.blood adhered duodenal ulcer. - Hgb: farideh 7.2 (baseline 13.4) in first hospitalization. presenting with 6.5 on 12/21 with rebleed. Status: Acute (3) Duodenal ulcer: Problem comment: from NSAID use: ASA from 11/25/24-12/09/24 after surgery at [facility] [place]. EGD here 12/14.blood adhered doudenol ulcer. Hgb: farideh 7.2 (baseline 13.4) in first hospitalization. presenting with 6.5 on 12/21. H pylori negative previously Status: Acute (4) Chronic kidney disease (CKD), stage 4: Problem comment: - baseline creatinine 2.5, follows with [facility]ha of Nephrology, stable - he did receive contrast CT on 12/21 - monitor creatinine and electrolytes Status: Acute (5) Type 2 diabetes mellitus: Problem comment: - Hgb A1C 7.3 10/2024, on Glipizide (on hold) - SSI Status: Acute Hospitalist- H&P: HPI History of Present Illness Date Seen: 12/21/24 Chief complaint: GI bleeding Narrative: ADMISSION HISTORY AND PHYSICAL - HOSPITALIST Chief Complaint: Acute GI bleed HPI: Braydon is an 84-year-old who we just had on service last week. He was discharged on 12/15/2024 after presenting with a GI bleed. We felt the GI bleed was secondary to a duodenal ulcer caused by aspirin postoperatively prescribed for VTE prophylaxis after he fell and broke his femur and had an ORIF. He was transfused 2 units. His bleeding was quiescent and with a stable hemoglobin and vital signs he was discharged. He had been doing well at home. He saw Dr. Garcia yesterday and had a hemoglobin and it was 8.5. He said he went to bed in his usual state of health. He woke up this morning and had an urgent need for a bowel movement. He said he could not control it and noticed it was maroon in color. He then got back to his bed and told his . He had yet another bowel movement that was a mix of bright red and maroon. She called EMS as he was already feeling very weak. He has not been on aspirin since the 1st diagnosis of GI bleed. He has been tolerating a normal diet. He has seen normal stools. ER COURSE: Evaluated with labs, CTA of the abdomen, blood transfusion was initiated. He was hemodynamically stable. CODE STATUS: FULL CODE PCP: Dr. Garcia EMERGENCY CONTACT PLAN: Melissa. I've updated the PFSH, medications and allergies in the Expanse tabs. INVESTIGATIONS: LABS/MICRO/ECG/IMAGING Afebrile Blood pressure 116/58, 126/67 Pulse is low 100s Respiratory rate 16, unlabored, on room air. CBC reflects a severe anemia at 6.5 His white blood cell count is mildly elevated 11.78 His MCV is 102 His platelets are 225 Current chemistries reflect normal electrolytes, mild acidosis with the bicarb of 19 a significantly elevated BUN of 64 which is consistent with his GI bleed. His creatinine is 2.5 which is essentially his baseline. He has a blood glucose of 205 CTA of the abdomen 1. Colonic diverticulosis without evidence of acute diverticulitis. Specifically no focal density your contrast blush to suggest cause for site a reported GI bleed. There was no obstruction or inflammatory change elsewhere. 2. No other finding to suggest cause for GI bleed. 3. Cystic lesion in the body of the pancreas measuring 2.7 cm can be further evaluated with pancreas protocol CT in 2 years, as indicated. Endoscopy on 12/14/[address] Kassy Temple: Normal esophagus Z-line regular Normal stomach Non bleeding duodenal ulcer with adherent clot No biopsies REVIEW OF SYSTEMS: 12-point ROS completed with patient and negative unless otherwise stated in HPI or below. PHYSICAL EXAM: CONSTITUTIONAL: Looks pale, washed out. However within an hour of arriving on the floor and into his 2nd unit of packed red blood cells he was sitting up and his color was already improving. GENERAL: Well-developed and above ideal body weight, in no respiratory distress. VITAL SIGNS: see record. HEENT: Sclerae are anicteric. No petechiae. CARDIAC: rhythm is regular. There is no S3 or rub. No harsh murmurs. Extremities show trace edema with symmetrical pulses. PULM: good air entry with no wheeze. Abdomen: Nontender. NEURO: Speech is fluent. A brief neurologic exam is negative. SKIN: No rashes, petechiae, concerning changes PSYCHIATRIC: Euthymic. ADMIT TO MEDSURG: CCU DVT: SCDs GI: PO intake Time spent: Today I spent 75 minutes seeing the patient, discussing the patient with ER staff, reviewing Expanse and EPIC notes/diagnostics, discussing the care plan with our care time that includes social work, PT/OT, pharmacy, RT, senior living and documenting my impressions and plan in the medical record. MEDICAL NECESSITY FOR HOSPITALIZATION Anticipated midnights in the hospital: 2 Admitting diagnosis: Acute GI bleed. Duodenal ulcer. Risk of morbidity and mortality: high Acuity is characterized as high and reflected in: Advanced age. Repeat bleed. Known cardiovascular disease. This patient will require hospital services as outlined in the assessment and plan in order to stabilize and be safely discharged to a lower level of care. Because of the risk and acuity as described above, this patient cannot be managed at a lower level of care. LENGTH OF STAY: 2 IP ? Anticipated LOS>2 midnights due to acuity of clinical presentation requiring inpatient level of care Medical Decision Making Medical Decision Making Has patient completed a Health Care Directive: Yes [facility] Medical History Pancreatic mass ?K86.89 - Other specified diseases of pancreas (ICD-10) Chronic kidney disease (CKD), stage 4 ?N18.4 - Chronic kidney disease, stage 4 (severe) (ICD-10) Traumatic tear of right rotator cuff ?S46.011A - Strain of muscle(s) and tendon(s) of the rotator cuff of right shoulder, initial encounter (ICD-10) MRSA infection ?A49.02 - Methicillin resistant Staphylococcus aureus infection, unspecified site (ICD-10) Arthritis ?M19.90 - Unspecified osteoarthritis, unspecified site (ICD-10) Type 2 diabetes mellitus ?E11.9 - Type 2 diabetes mellitus without complications (ICD-10) Myocardial infarction ?I21.9 - Acute myocardial infarction, unspecified (ICD-10) Hypertension ?I10 - Essential (primary) hypertension (ICD-10) Coronary artery disease ?I25.10 - Atherosclerotic heart disease of [place] coronary artery without angina pectoris (ICD-10) Surgical History 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) ?Z96.611 - Presence of right artificial shoulder joint (ICD-10) H/O arthroscopy of right knee (06/05/07) ?Z98.890 - Other specified postprocedural states (ICD-10) History of prostate surgery ?Z98.890 - Other specified postprocedural states (ICD-10) 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) ?Z96.651 - Presence of right artificial knee joint (ICD-10) H/O hernia repair (09/08/18) ?Z98.890 - Other specified postprocedural states (ICD-10) ?Z87.19 - Personal history of other diseases of the digestive system (ICD-10) History of cholecystectomy (08/17/17) ?Z90.49 - Acquired absence of other specified parts of digestive tract (ICD-10) H/O right coronary artery stent placement ?Z95.5 - Presence of coronary angioplasty implant and graft (ICD-10) History of right hip replacement (12/13/19) ?Z96.641 - Presence of right artificial hip joint (ICD-10) Social History Narrative: 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 Melissa is MDM. DNR/DNI What is your current living situation?: I presently have a place to live Problems where you live: no known problems Problems where you live details: N/A In the past 12 months, utilities in danger of being shut off: no In past 12 months, lack of transportation kept you from medical appts, meetings, work, or getting things needed for daily living: no In the past 12 mos, have been you worried that your food would run out before you had money to buy more?: never true In the past 12 mos, the food you bought just didn't last and you didn't have money to buy more?: never true Highest level of school completed/degree received: Master's degree Smoking Status: Never smoker How often do you have a drink containing alcohol: monthly or less AUDIT-C Alcohol total score: 1 Non-prescribed substance use: denies use Caffeine: Yes How often does anyone, including family, friends and others, physically hurt you: never How often does anyone, including family, friends and others, insult or talk down to you: never How often does anyone, including family, friends and others, threaten you with harm: never How often does anyone, including family, friends and others, scream or curse at you: never service: No Meds Home Medications and Allergies Home Medications ?Medication ?Instructions ?Recorded ?Confirmed ?Type ascorbic acid (vitamin C) 1,000 mg 1 g PO DAILY 07/16/23 12/21/24 History capsule cholecalciferol (vitamin D3) 125 125 mcg PO DAILY 07/16/23 12/21/24 History mcg (5,000 unit) capsule glipizide 2.5 mg tablet, extended 2.5 mg PO DAILY 07/16/23 12/21/24 History release 24 hr omega 8-cbd-yvy-fish oil 1,000 mg 1 cap PO DAILY 07/16/23 12/21/24 History (120 mg-180 mg) capsule (Fish Oil) sildenafil 50 mg tablet (Viagra) 50 mg PO DAILY PRN 07/16/23 12/21/24 History acetaminophen 500 mg capsule 500 - 1,000 mg (1 - 2 x 500 mg) PO 07/17/23 12/21/24 Rx Q6H PRN #100 caps metoprolol succinate 25 mg 25 mg PO DAILY 06/28/24 12/21/24 History tablet,extended release 24 hr olmesartan 40 mg tablet 40 mg PO DAILY 06/28/24 12/21/24 History blood sugar diagnostic (True 12/13/24 12/13/24 History Metrix Glucose Test Strip) rosuvastatin 10 mg tablet 10 mg PO HS 12/13/24 12/21/24 History omeprazole 20 mg capsule,delayed 20 mg PO DAILY #30 caps 12/15/24 12/21/24 Rx release Allergies Allergy/AdvReac Type Severity Reaction Status Date / Time pseudoephedrine (From Allergy Intermediate unable to Verified 12/21/24 11:10 Sudafed) urinate cat dander Allergy Unknown Verified 12/21/24 11:10 oxycodone Allergy Unknown hallucinati Verified 12/21/24 11:10 ons adhesive Allergy Rash Verified 12/21/24 11:10 atorvastatin AdvReac Diarrhea Verified 12/21/24 11:10 Exam Const: Vital Signs, click to edit/add: Vital Signs - 24 hr 12/21/24 08:18 12/21/24 08:19 12/21/24 08:23 Temperature 97.4 F L Pulse Rate 98 99 Pulse Rate [Pulse Oximeter] 98 Respiratory Rate 16 16 Blood Pressure 138/57 L Blood Pressure [Ri ght Upper Arm] 138/57 L Pulse Oximetry 99 100 100 Oxygen Delivery Me od Room Air 12/21/24 08:30 12/21/24 08:45 12/21/24 09:00 Temperature Pulse Rate 102 H 89 99 Pulse Rate [Pulse Oximeter] Respiratory Rate Blood Pressure Blood Pressure [Ri ght Upper Arm] Pulse Oximetry 99 97 [facility] 12[facility] 09:15 12/21/24 09:30 12/21/24 09:45 Temperature Pulse Rate 100 91 98 Pulse Rate [Pulse Oximeter] Respiratory Rate Blood Pressure Blood Pressure [Ri ght Upper Arm] Pulse Oximetry 96 96 96 [facility] 12/21/24 10:00 12/21/24 10:14 12/21/24 10:15 Temperature Pulse Rate 102 H 105 H 104 H Pulse Rate [Pulse Oximeter] Respiratory Rate Blood Pressure 150/68 H Blood Pressure [Ri ght Upper Arm] Pulse Oximetry 98 97 97 [facility] 12/21/24 10:17 12/21/24 10:30 12/21/24 10:32 Temperature Pulse Rate 108 H 105 H 104 H Pulse Rate [Pulse Oximeter] Respiratory Rate 16 Blood Pressure 134/72 141/73 H Blood Pressure [Ri ght Upper Arm] Pulse Oximetry 97 98 97 [facility] 12/21/24 10:45 12/21/24 10:47 12/21/24 10:48 Temperature Pulse Rate 105 H 105 H 102 H Pulse Rate [Pulse Oximeter] Respiratory Rate Blood Pressure 129/69 Blood Pressure [Ri ght Upper Arm] Pulse Oximetry 97 97 97 [facility] 12/21/24 11:24 12/21/24 11:30 12/21/24 11:35 Temperature Pulse Rate 100 100 103 H Pulse Rate [Pulse Oximeter] Respiratory Rate Blood Pressure Blood Pressure [Ri ght Upper Arm] Pulse Oximetry 98 98 98 [facility] 12/21/24 11:45 12/21/24 12:02 12/21/24 12:18 Temperature Pulse Rate 106 H Pulse Rate [Pulse Oximeter] Respiratory Rate Blood Pressure 140/67 H 125/58 L Blood Pressure [Ri ght Upper Arm] Pulse Oximetry 97 [facility] 12/21/24 12:25 12/21/24 12:27 12/21/24 12:30 Temperature 97.4 F L Pulse Rate 104 H 104 H 103 H Pulse Rate [Pulse Oximeter] Respiratory Rate 16 Blood Pressure 125/58 L 113/60 Blood Pressure [Ri ght Upper Arm] Pulse Oximetry 98 97 [facility] 12/21/24 12:31 12/21/24 12:40 12/21/24 12:42 Temperature 97.4 F L Pulse Rate 99 105 H 100 Pulse Rate [Pulse Oximeter] Respiratory Rate 16 Blood Pressure 115/55 L 115/55 L Blood Pressure [Ri ght Upper Arm] Pulse Oximetry 96 100 97 [facility] 12/21/24 12:45 12/21/24 12:47 12/21/24 13:00 Temperature Pulse Rate 96 100 104 H Pulse Rate [Pulse Oximeter] Respiratory Rate Blood Pressure 116/58 L Blood Pressure [Ri ght Upper Arm] Pulse Oximetry 96 98 97 [facility] 12/21/24 13:02 Temperature Pulse Rate 104 H Pulse Rate [Pulse Oximeter] Respiratory Rate Blood Pressure 126/67 Blood Pressure [Ri ght Upper Arm] Pulse Oximetry 96 Oxygen Delivery Me od Hospitalist - H&P: Result Labs Labs: Short CBC 12/21/24 Range/Units 08:55 WBC 11.78 H (4.50-11.00) K/uL Hgb 6.5 L* (13.5-17.5) gm/dL Hct 20.3 L (37.0-53.0) % Plt Count 225 (140-440) K/uL BMP 12/21/24 08:55 Sodium 135 Potassium 4.9 Chloride 110 Carbon Dioxide 19 L BUN 64 H Creatinine 2.5 H Glucose 205 H Calcium 10.2 Liver Function 12/21/24 Range/Units 08:55 Total Bilirubin 1.0 (0.1-1.5) mg/dL Direct Bilirubin 0.2 (0.0-0.5) mg/dL AST 25 (12-35) U/L ALT 16 (4-50) U/L Alkaline Phosphatase 119 (40-150) U/L Albumin 2.8 L (3.3-5.0) g/dL
[2024-12-21 16:06] LABS: Hemoglobin* 8.3 gm/dL (13.5-17.5)
[2024-12-21] MEDS: ACETAMINOPHEN 650 MG TABLET ER 1300 MG PO (20:26)
[2024-12-21 22:09] LABS: Hemoglobin* 8.5 gm/dL (13.5-17.5)
[2024-12-22] VITALS (13 sets, daily range): BP systolic 135–160; BP diastolic 58–79; PULSE 74–96; RESP 14–18; TEMP 36.4–36.6; O2SAT 94–98; BMI 28.7
[2024-12-22 04:18] LABS: Hematocrit 26.4 % (37.0-53.0); Hemoglobin* 8.9 gm/dL (13.5-17.5); Mean Corpuscular HGB Conc 34 gm/dL (32-36); Mean Corpuscular Hemoglobin 31 pg (26-34); Mean Corpuscular Volume 92 fL (80-100); Red Blood Count 2.88 m/uL (4.30-5.90); White Blood Count* 11.29 K/uL (4.50-11.00)
[2024-12-22 04:20] LABS: Slide Review Reflex No
[2024-12-22 04:26] LABS: Albumin* 2.7 g/dL (3.3-5.0); Chloride* 107 mmol/L (96-114); Potassium* 4.7 mmol/L (3.6-5.1); Sodium* 134 mmol/L (135-149)
[2024-12-22 04:29] LABS: Anion Gap 7 mEq/L (7-15); Blood Urea Nitrogen* 73 mg/dL (7-30); Calcium* 10.0 mg/dL (8.4-10.6); Carbon Dioxide* 20 mmol/L (20-32); Creatinine* 2.6 mg/dL (0.5-1.5); Est. Creatinine Clearance* 21.45; Estimated Glomerular Filt Rate 23 ml/min; Glucose* 143 mg/dL (60-115)
[2024-12-22] MEDS: ACETAMINOPHEN 650 MG TABLET ER 1300 MG PO ×2 (06:13→17:06)
--- NOTE | 2024-12-22 06:20 | PC.NURSE ---
The patient is alert and orientated and cooperative with cares. VS Htn at times on RA. Slightly tachycardic as well with activity. Reported mild pain in his R leg intermittently throughout the shift, PRN Tylenol given. 3rd unit of PRBC was infused overnight with no issues. 1 large melena episode, with 2 smaller occurrences throughout the night. The patient denies dizziness and doesn't report feeling as fatigued. Up to the BR SBA- Ax1 w/ GB and RW. Partially incontinent of one episode of stool due to urgency. Call light is within reach. Tolerating a clear liquid diet well. Emi OWEN BSN
[2024-12-22] MEDS: PANTOPRAZOLE SODIUM 40 MG INJ IVP ×2 (08:25→21:05)
[2024-12-22] MEDS: SODIUM CHLORIDE 0.9 % (FLUSH) 10 ML SYRINGE 5 ML IVF ×2 (08:26→21:06)
[2024-12-22 10:17] LABS: Hemoglobin* 8.6 gm/dL (13.5-17.5)
--- NOTE | 2024-12-22 12:46 | PM.IMPN1 ---
Assessment and Plan Assessment and plan (1) ABLA (acute blood loss anemia): Problem comment: -8.5 yesterday at the [facility] lab. 6.5 today in the ED. -received total of 3 units PRBC thus far -IV pantoprazole b.i.d., Carafate slurry -continue to monitor and manage locally, patient does not want to be transferred for further intervention -Minimize blood draws, pediatric tube only for hemoglobin at 1800 and 0400 Status: Acute (2) GI (gastrointestinal bleed): Problem comment: -from NSAID use: ASA from 11/25/24-12/09/24 after surgery at [facility] [place] -EGD here 12/14 blood adhered duodenal ulcer. Status: Acute (3) Duodenal ulcer: Problem comment: -from NSAID use: ASA from 11/25/24-12/09/24 after surgery at [facility] [place]. -EGD here 12/14 blood adhered doudenol ulcer. -H pylori negative 12/14 -management as above, #1 Status: Acute (4) Chronic kidney disease (CKD), stage 4: Problem comment: -baseline creatinine 2.5, follows with Radha of Nephrology, stable -contrast CT on 12/21 Status: Acute (5) Type 2 diabetes mellitus: Problem comment: -Hgb A1C 7.3 10/2024, on Glipizide (on hold) -patient declines further POC glucose checks (does not do these at home), 0 units aspart thus far Status: Acute (6) Hypertension: Problem comment: -okay to resume olmesartan, continue to hold metoprolol Status: Acute Plan Continue to monitor, minimal blood draws, blood transfusions as needed. Declines transfer for further intervention and management Total Time Spent Total Time Spent: Today I spent 55 minutes seeing the patient, reviewing Expanse and EPIC notes/diagnostics, discussing the care plan with our care time that includes social work, PT/OT, pharmacy, RT, [place] [facility] and documenting my impressions and plan in the medical record. Subjective Date Seen: 12/22/24 Interval history: Patient is seen today resting in his chair, at bedside. Denies headache or dizziness. Denies chest pain or shortness of breath. No nausea. Stools reported as melanotic. Received total of 3 units PRBC yesterday. Hemoglobin 8.9 this morning, 6 hour repeat is 8.6. Asked the patient if he would consider transfer to tertiary care facility for further management. He does not want to leave this hospital. He tells me with his and nurse at bedside that he will pray to God and ask guidance. He tells me if he should bleed to he is okay with that. He does not want intervention from an outside facility. He agrees to monitoring hemoglobin and blood transfusions as necessary. Exam Narrative: Exam Narrative: PHYSICAL EXAM General: Pleasant, calm and thoughtful, NAD HEENT: Normocephalic, atraumatic, sclera white, EOMI Cardiovascular: RRR, S1S2. No pitting edema Pulmonary: CTA bilaterally without rhonchi, rales, expiratory wheezes. No dyspnea Abdominal: Soft, nondistended, NTTP Neurological: Alert, answering questions appropriately, cranial nerves intact, no focal findings Extremities: No gross joint deformity or swelling. AROMI. Neurovascularly intact Skin: Warm, dry. Cheeks are pink Const: Vital Signs, click to edit/add: Vital Signs - 24 hr 12/21/24 12:47 12/21/24 13:00 12/21/24 13:02 Temperature Pulse Rate 100 104 H 104 H Pulse Rate [Right Radial] Respiratory Rate Blood Pressure 116/58 L 126/67 Blood Pressure [Ri ght Arm] Pulse Oximetry 98 97 96 Oxygen Delivery Me thod 12/21/24 13:03 12/21/24 13:15 12/21/24 13:17 Temperature 97.6 F Pulse Rate 99 103 H 102 H Pulse Rate [Right Radial] Respiratory Rate 16 Blood Pressure 143/64 H Blood Pressure [Ri ght Arm] Pulse Oximetry 98 98 98 Oxygen Delivery Me thod 12/21/24 13:34 12/21/24 13:45 12/21/24 13:45 Temperature 97.0 F L 97.1 F L Pulse Rate 103 H Pulse Rate [Right Radial] 102 H Respiratory Rate 16 16 Blood Pressure 147/73 H Blood Pressure [Ri ght Arm] 158/74 H Pulse Oximetry 97 98 98 Oxygen Delivery Me thod Room Air Room Air 12/21/24 13:45 12/21/24 14:00 12/21/24 14:15 Temperature 97.1 F L 97.3 F L Pulse Rate 104 H 103 H Pulse Rate [Right Radial] Respiratory Rate 18 16 Blood Pressure 164/80 H 167/77 H Blood Pressure [Ri ght Arm] Pulse Oximetry 97 99 Oxygen Delivery Me thod Room Air Room Air Room Air 12/21/24 14:19 12/21/24 14:30 12/21/24 15:00 Temperature 97.4 F L 97.7 F Pulse Rate 101 H 101 H 94 Pulse Rate [Right Radial] Respiratory Rate 18 16 Blood Pressure 157/89 H 155/74 H Blood Pressure [Ri ght Arm] Pulse Oximetry 99 96 Oxygen Delivery Me thod Room Air Room Air 12/21/24 15:30 12/21/24 16:00 12/21/24 16:00 Temperature 97.6 F 97.7 F 97.7 F Pulse Rate 96 98 Pulse Rate [Right Radial] 98 Respiratory Rate 16 16 16 Blood Pressure 157/79 H 159/82 H Blood Pressure [Ri ght Arm] 159/82 H Pulse Oximetry 96 97 97 Oxygen Delivery Me thod Room Air Room Air Room Air 12/21/24 17:00 12/21/24 17:00 12/21/24 19:59 Temperature 98.0 F 98.0 F 97.3 F L Pulse Rate 92 Pulse Rate [Right Radial] 92 104 H Respiratory Rate 16 16 16 Blood Pressure 141/78 H Blood Pressure [Ri ght Arm] 141/78 H 155/83 H Pulse Oximetry 96 96 97 Oxygen Delivery Me thod Room Air Room Air Room Air 12/21/24 22:00 12/21/24 22:19 12/21/24 22:49 Temperature 97.5 F L 97.5 F L 97.5 F L Pulse Rate 98 91 84 Pulse Rate [Right Radial] Respiratory Rate 16 16 16 Blood Pressure 129/62 134/75 133/77 Blood Pressure [Ri ght Arm] Pulse Oximetry 97 97 98 Oxygen Delivery Me thod Room Air Room Air Room Air 12/21/24 22:56 12/21/24 23:19 12/22/24 00:00 Temperature 97.6 F 97.6 F Pulse Rate 85 80 74 Pulse Rate [Right Radial] Respiratory Rate 16 16 Blood Pressure 150/71 H 148/70 H Blood Pressure [Ri ght Arm] Pulse Oximetry 97 96 Oxygen Delivery Me thod Room Air Room Air 12/22/24 00:44 12/22/24 02:00 12/22/24 04:00 Temperature 97.6 F 97.5 F L 97.7 F Pulse Rate 91 Pulse Rate [Right Radial] 79 90 Respiratory Rate 16 16 18 Blood Pressure 148/68 H Blood Pressure [Ri ght Arm] 137/58 L 151/79 H Pulse Oximetry 98 96 98 Oxygen Delivery Me thod Room Air Room Air Room Air 12/22/24 06:00 12/22/24 07:45 12/22/24 08:00 Temperature 97.8 F 97.8 F Pulse Rate 94 Pulse Rate [Right Radial] 94 90 Respiratory Rate 16 18 Blood Pressure Blood Pressure [Ri ght Arm] 138/77 160/77 H Pulse Oximetry 97 97 Oxygen Delivery Me thod Room Air 12/22/24 11:34 Temperature 97.6 F Pulse Rate Pulse Rate [Right Radial] 96 Respiratory Rate 18 Blood Pressure Blood Pressure [Ri ght Arm] 138/72 Pulse Oximetry 95 Oxygen Delivery Me thod Room Air Labs Labs: Laboratory Results - last 24 hr 12/21/24 12/21/24 12/21/24 08:55 15:55 21:57 WBC RBC Hgb 8.3 L 8.5 L Hct MCV MCH MCHC Plt Count Sodium Potassium Chloride Carbon Dioxide Anion Gap BUN Creatinine Estimated Creat Clear Estimated GFR Glucose Calcium Phosphorus Albumin Blood Type B Positive Antibody Screen NEGATIVE Crossmatch ([facility]) See Detail 12/22/24 12/22/24 12/22/24 04:05 04:05 10:10 WBC 11.29 H RBC 2.88 L Hgb Cancelled 8.9 L 8.6 L Hct 26.4 L MCV 92 MCH 31 MCHC 34 Plt Count 179 Sodium 134 L Potassium 4.7 Chloride 107 Carbon Dioxide 20 Anion Gap 7 BUN 73 H Creatinine 2.6 H Estimated Creat Clear 21.45 Estimated GFR 23 Glucose 143 H Calcium 10.0 Phosphorus 3.8 Albumin 2.7 L Blood Type Antibody Screen Crossmatch ([facility])
[2024-12-22] MEDS: SUCRALFATE 1 GM TABLET PO ×2 (17:06→21:06)
[2024-12-22 18:27] LABS: Hemoglobin* 7.7 gm/dL (13.5-17.5)
--- NOTE | 2024-12-22 19:09 | PC.NURSE ---
Pt is alert and oriented. VSS. pt had 2 dark bloody stools during the AM. Pt currently on clear liquid diet. C/o 2/10 pain in R leg, managed with current PRN medication. Hbg 8.3 in the AM and currently 7.3. Pt is standby assist with walker.
[2024-12-22 21:19] LABS: Hemoglobin* 7.8 gm/dL (13.5-17.5)
--- NOTE | 2024-12-22 21:33 | PC.NURSE ---
Short run of wide complex tachycardia noted, asymptomatic. Dr Benoit notified.
--- NOTE | 2024-12-22 22:30 | PC.NURSE ---
End of shift note [id number]: Pt A&Ox4 and able to make needs known. He is transferring with SBA to assist of 1 with rolling walker and GB. Pt denying pain and nausea when asked with no vomiting noted. He has had 1 small tarry black stool this evening and has been continent of bladder. VSS- pt has been afebrile and on RA. Melissa involved in pt's care at bedside. Repeat Hgb drawn. Pt has been denying lightheadedness/dizziness when asked. He has refused to wear bilateral SCDs this evening when approached. Pt tolerating CL diet. Call light within reach.
[2024-12-23] VITALS (18 sets, daily range): BP systolic 126–152; BP diastolic 59–83; PULSE 80–102; RESP 14–20; TEMP 36.4–36.7; O2SAT 95–98
[2024-12-23 06:52] LABS: Hemoglobin* 8.1 gm/dL (13.5-17.5)
[2024-12-23] MEDS: ACETAMINOPHEN 650 MG TABLET ER 1300 MG PO ×2 (07:00→16:42)
[2024-12-23] MEDS: SUCRALFATE 1 GM TABLET PO ×4 (07:00→21:11)
[2024-12-23] MEDS: PANTOPRAZOLE SODIUM 40 MG INJ IVP ×2 (08:20→22:49)
[2024-12-23] MEDS: OLMESARTAN MEDOXOMIL 20 MG TABLET 40 MG PO (08:21)
[2024-12-23] MEDS: SODIUM CHLORIDE 0.9 % (FLUSH) 10 ML SYRINGE 5 ML IVF ×2 (08:21→21:12)
--- NOTE | 2024-12-23 11:06 | PM.IMPN1 ---
Assessment and Plan Assessment and plan (1) ABLA (acute blood loss anemia): Problem comment: -8.5 at the [facility] lab. 6.5 in the ED. -received total of 3 units PRBC thus far -IV pantoprazole b.i.d., Carafate slurry -continue to monitor and manage locally, patient does not want to be transferred for further intervention -Minimize blood draws, pediatric tube only for hemoglobin at 1600 and 0400 -if remains stable, consider discharge Friday Status: Acute (2) GI (gastrointestinal bleed): Problem comment: -from NSAID use: ASA from 11/25/24-12/09/24 [place] [facility] [place] 12[place]14 blood adhered duodenal ulcer. Status: Acute (3) Duodenal ulcer: Problem comment: -from NSAID use: ASA from 11/25/24-12/09/24 [place] [facility] [place]EGD here 12/14 blood adhered doudenol ulcer. -H pylori negative 12/14 -management as above, #1 Status: Acute (4) Chronic kidney disease (CKD), stage 4: Problem comment: -baseline creatinine 2.5, follows with [facility] of Nephrology, stable -contrast CT on 12/21 Status: Acute (5) Type 2 diabetes mellitus: Problem comment: -Hgb A1C 7.3 10/2024, on Glipizide (on hold) -patient declines further POC glucose checks (does not do these at home), 0 units aspart thus far Status: Acute (6) Hypertension: Problem comment: -okay to resume olmesartan, continue to hold metoprolol Status: Acute Plan Possible discharge tomorrow if remains stable Total Time Spent Total Time Spent: Today I spent 45 minutes seeing the patient, reviewing Expanse and EPIC notes/diagnostics, discussing the care plan with our care time that includes social work, PT/OT, pharmacy, RT, usp and documenting my impressions and plan in the medical record. Subjective Date Seen: 12/23/24 Interval history: Patient is seen sitting up in a chair this morning. Reports feeling much better. Hemoglobin check yesterday afternoon was 7.7 and 7.8. He did not receive a transfusion. This morning it is 8.1. Nursing staff reported his stools have gone from a maroon color to a green color. The patient is feeling relieved. Denies headache or dizziness with activity. Denies chest pain or shortness of breath. Tolerating orals without nausea or vomiting. Monitoring hemoglobin, stable without transfusion. Will check again this afternoon. Possible discharge Friday if remains stable. Exam Narrative: Exam Narrative: PHYSICAL EXAM General: Pleasant, calm and thoughtful, NAD HEENT: Normocephalic, atraumatic, sclera white, EOMI Cardiovascular: RRR, S1S2. No pitting edema Pulmonary: CTA bilaterally without rhonchi, rales, expiratory wheezes. No dyspnea Abdominal: Soft, nondistended, NTTP Neurological: Alert, answering questions appropriately, cranial nerves intact, no focal findings Extremities: No gross joint deformity or swelling. AROMI. Neurovascularly intact Skin: Warm, dry. Cheeks are pink Const: Vital Signs, click to edit/add: Vital Signs - 24 hr 12/22/24 11:34 12/22/24 13:38 12/22/24 15:17 Temperature 97.6 F Pulse Rate 83 Pulse Rate [Right Radial] 96 Respiratory Rate 18 Blood Pressure [Le ft Arm] Blood Pressure [Ri ght Arm] 138/72 Pulse Oximetry 95 97 Oxygen Delivery Me thod Room Air 12/22/24 15:34 12/22/24 19:00 12/22/24 23:00 Temperature 97.6 F 97.9 F 97.8 F Pulse Rate Pulse Rate [Right Radial] 90 82 76 Respiratory Rate 18 16 14 Blood Pressure [Le ft Arm] Blood Pressure [Ri ght Arm] 143/67 H 135/72 147/65 H Pulse Oximetry 94 97 96 Oxygen Delivery Me thod Room Air Room Air Room Air 12/23/24 00:29 12/23/24 03:15 12/23/24 07:00 Temperature 97.8 F 98.1 F Pulse Rate 85 Pulse Rate [Right Radial] 96 101 H Respiratory Rate 20 18 Blood Pressure [Le ft Arm] 134/74 131/69 Blood Pressure [Ri ght Arm] Pulse Oximetry 96 98 Oxygen Delivery Me thod Room Air Room Air 12/23/24 08:23 Temperature Pulse Rate 100 Pulse Rate [Right Radial] Respiratory Rate Blood Pressure [Le ft Arm] Blood Pressure [Ri ght Arm] Pulse Oximetry Oxygen Delivery Me thod Labs Labs: Laboratory Results - last 24 hr 12/22/24 12/22/24 12/23/24 18:11 20:55 06:34 Hgb 7.7 L* 7.8 L* 8.1 L
--- NOTE | 2024-12-23 14:43 | PC.NURSE ---
Pt is alert and oriented. VSS. pt had one dark stool. pt is on clear liquid diet. Hbg 8.1 recheck at 1600. pt is standby assist with walker.
[2024-12-23 16:34] LABS: Hemoglobin* 7.4 gm/dL (13.5-17.5)
[2024-12-23] MEDS: CARBOXYMETHYLCELLULOSE (REFRESH PLUS) TEARS 1 DROP EYE-BOTH (21:13)
--- NOTE | 2024-12-23 22:58 | PC.NURSE ---
end of shift: Pt is AOx4. VSS. Blood given; no s & s of reaction noted. up w/ SBA. .Tolerating clears. Denies nausea.
[2024-12-24 04:05] VITALS: BP 155/78; PULSE 94; RESP 20; TEMP 36.5; O2SAT 98
[2024-12-24 06:23] LABS: Hemoglobin* 8.3 gm/dL (13.5-17.5)
[2024-12-24] MEDS: SUCRALFATE 1 GM TABLET PO (06:32)
[2024-12-24 07:00] VITALS: BP 153/83; PULSE 100; PULSE 94; RESP 20; TEMP 36.1; O2SAT 97
--- NOTE | 2024-12-24 07:45 | PC.NURSE ---
Pt alert and oriented x3. Afebrile. Pt denies pain, SOB, and N/V. Pt had x2 moderate loose green and yellow BMs overnight. Pt is up SBA with walker and gait belt, voiding, and tolerating a clear liquid diet. Pt is in bed an call light within reach.
--- NOTE | 2024-12-24 08:00 | P.ANES_ITS ---
Anesthesia Charges Start Date/Time Anesthesia Start Date: 12/24/24 Stop Date/Time Anesthesia Stop Date: 12/24/24 Summary Emergency: MDA Extremes of Age - Over 70 or under 1: MDA Coding CPT Codes CPT Codes: ANES UPR GI NDSC PX NOS - 96420 ([id number]) QK - DIRECTOR OF STUDENT LIFE 2-4 CNCRNT ANES PROC, QX - STONEMASON HELPER SVC W/ MD MED DIRECTION, P3 - PATIENT W/SEVERE SYS DISEASE Additional Codes: Summary - Emergency: MDA ([id number]) Summary - Extremes of Age - Over 70 or under 1: GIANNA ([id number])
--- NOTE | 2024-12-24 08:00 | W.ANESCHARGE ---
Anesthesia Charges Start Date/Time Anesthesia Start Date: 12/24/24 Stop Date/Time Anesthesia Stop Date: 12/24/24 Summary Emergency: MDA Extremes of Age - Over 70 or under 1: MDA Coding CPT Codes CPT Codes: ANES UPR GI NDSC PX NOS - 91115 ([id number]) QK - UNDERGROUND DISTRIBUTION ENGINEER 2-4 CNCRNT ANES PROC, QX - ACCESS COORDINATOR SVC W/ MD MED DIRECTION, P3 - PATIENT W/SEVERE SYS DISEASE Additional Codes: Summary - Emergency: MDA ([id number]) Summary - Extremes of Age - Over 70 or under 1: GIANNA ([id number])
[2024-12-24] MEDS: PANTOPRAZOLE SODIUM 40 MG INJ IVP (08:56)
[2024-12-24] MEDS: SODIUM CHLORIDE 0.9 % (FLUSH) 10 ML SYRINGE 5 ML IVF (09:00)
--- NOTE | 2024-12-24 10:24 | PM.DST ---
Transfer Discharge Sum: Prov Provider Date Seen: 12/24/24 Date of admission: 12/21/24 13:36 Primary care physician: Lisandro Garcia MD Attending physician on admission: Jeannette Chavez Consults: General Surgery, Gastroenterology Attending physician on discharge: Lucinda Marquez Anticipated date of transfer: 12/24/24 Receiving physician/facility: [facility], Dr. Salinas DS: Diagnosis Discharge Diagnosis (1) GI (gastrointestinal bleed): Status: Acute Problem details: -from NSAID use: ASA from 11/25/24-12/09/24 [place] [facility] [place] 12/14 blood adhered duodenal ulcer. 12/24 hemoglobin continues to drop. Has received an additional 1 unit PRBC. Discussed with General surgery and Gastroenterology locally, recommending transfer for further intervention - surgical, IR - procedures not available in this facility. Potential outcomes including increased bleed, perforation that should be managed at a tertiary hospital. Remains NPO for transfer (2) Duodenal ulcer: Status: Acute Problem details: -from NSAID use: ASA from 11/25/24-12/09/24 after [place] [facility] [place]EGD here 12/14 blood adhered doudenol ulcer. -H pylori negative 12/14 -management as above, #1 (3) ABLA (acute blood loss anemia): Status: Acute Problem details: -8.5 at the [facility] lab. 6.5 in the ED. -received total of 3 units PRBC thus far -IV pantoprazole b.i.d., Carafate slurry -continue to monitor and manage locally, patient does not want to be transferred for further intervention -Minimize blood draws, pediatric tube only for hemoglobin at 1600 and 0400 Hgb 7.4 on 12/23, improved to 8.3 this morning. Ongoing active bleed from duodenal ulcer most likely source (4) Chronic kidney disease (CKD), stage 4: Status: Acute Problem details: -baseline creatinine 2.5, follows with Radha of Nephrology, stable -contrast CT on 12/21 (5) Type 2 diabetes mellitus: Status: Acute Problem details: -Hgb A1C 7.3 10/2024, on Glipizide (on hold) -patient declines further POC glucose checks (does not do these at home), 0 units aspart thus far (6) Hypertension: Status: Acute Problem details: -holding 12/24 Transfer Discharge Sum: Med Medications Active and Home Medications: Home Medications ascorbic acid (vitamin C) 1,000 mg capsule 1 g PO DAILY 07/16/23 [History Confirmed 12/21/24] cholecalciferol (vitamin D3) 125 mcg (5,000 unit) capsule 125 mcg PO DAILY 07/16/23 [History Confirmed 12/21/24] glipizide 2.5 mg tablet, extended release 24 hr 2.5 mg PO DAILY 07/16/23 [History Confirmed 12/21/24] omega [id number]-efs-qbx-fish oil 1,000 mg (120 mg-180 mg) capsule (Fish Oil) 1 cap PO DAILY 07/16/23 [History Confirmed 12/21/24] sildenafil 50 mg tablet (Viagra) 50 mg PO DAILY PRN 07/16/23 [History Confirmed 12/21/24] acetaminophen 500 mg capsule 500 - 1,000 mg (1 - 2 x 500 mg) PO Q6H PRN #100 caps 07/17/23 [Rx Confirmed 12/21/24] metoprolol succinate 25 mg tablet,extended release 24 hr 25 mg PO DAILY 06/28/24 [History Confirmed 12/21/24] olmesartan 40 mg tablet 40 mg PO DAILY 06/28/24 [History Confirmed 12/21/24] blood sugar diagnostic (True Metrix Glucose Test Strip) 12/13/24 [History Confirmed 12/13/24] rosuvastatin 10 mg tablet 10 mg PO HS 12/13/24 [History Confirmed 12/21/24] omeprazole 20 mg capsule,delayed release 20 mg PO DAILY #30 caps 12/15/24 [Rx Confirmed 12/21/24] Active Medications Acetaminophen (Acetaminophen 650 Mg Tablet Er) 1,300 mg PO Q8H PRN On Hold: 12/24/24 08:59 Last Admin: 12/23/24 16:42 Dose: 1,300 mg Artificial Tears (Carboxymethylcellulose (Refresh Plus) Tears) 1 drop EYE-BOTH BID PRN PRN Reason: Ocular lubricant Last Admin: 12/23/24 21:13 Dose: 1 drop Melatonin (Melatonin 3 Mg Tablet) 6 mg PO HS PRN Morphine Sulfate (Morphine 2 Mg/Ml Inj) 2 mg IVP Q2H PRN Olmesartan (Olmesartan Medoxomil 20 Mg Tablet) 40 mg PO DAILY BERNADETTE On Hold: 12/24/24 08:58 Last Admin: 12/23/24 08:21 Dose: 40 mg Ondansetron HCl (Ondansetron Odt 4 Mg Tab) 4 mg PO Q6H PRN Ondansetron HCl (Ondansetron 2 Mg/Ml Inj) 4 mg IVP Q4H PRN PRN Reason: Nausea Pantoprazole Sodium (Pantoprazole Sodium 40 Mg Inj) 40 mg IVP BID COUNTS INCLUDE 234 BEDS AT THE [facility] Last Admin: 12/24/24 08:56 Dose: 40 mg Sodium Chloride (Sodium Chloride 0.9 % (Flush) 10 Ml Syringe) 5 ml IVF .FLUSH PRN Sodium Chloride (Sodium Chloride 0.9 % (Flush) 10 Ml Syringe) 5 ml IVF BID COUNTS INCLUDE 234 BEDS AT THE [facility] Last Admin: 12/23/24 21:12 Dose: 5 ml Sodium Chloride (0.9 % Sodium Chloride 500 Ml) 250 ml IV ONCE PRN Stop: 12/24/24 23:59 Sucralfate (Sucralfate 1 Gm Tablet) 1 gm PO ACHS BERNADETTE On Hold: 12/24/24 08:59 Last Admin: 12/24/24 06:32 Dose: 1 gm Transfer Discharge Sum: Hosp Hospital Course Hospital course: Braydon Allen is a 84 year old male past medical history significant for hypertension, CKD, T2DM, 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 Admitted to this hospital on 12/13/24 for GI bleed. Upper endoscopy shows clotted duodenal ulcer. Discharged on 12/15/2024 stable without further evidence of acute bleed. Return to this hospital on 12/21/2024 with melanotic stools and hemoglobin 6.5. Received 3 units PRBC. Stabilized. Initially refused transfer for further intervention. Has continued to show signs of active bleed with melanotic stools and hemoglobin < 8. Discussed intervention options with local General surgery and Gastroenterology recommending transfer for further surgical intervention, possible Interventional Radiology, and support of tertiary setting given risks. Discussed with patient, , daughter, all in agreement for transfer. Discussed with MOD, Dr. Christie, ABNW, accepts for transfer [facility] surg floor. Eight hour bed wait currently. Patient will remain NPO. Time Spent with Patient Time attestation: Total time spent providing and/or coordinating transfer services: Total time spent: Greater than 30 minutes Exam Narrative: Exam Narrative: PHYSICAL EXAM General: Pleasant, conversant, NAD Cardiovascular: RRR Pulmonary: No dyspnea Neurological: Alert, answering questions appropriately Skin: Warm, dry. Const: Vital Signs, click to edit/add: Vital Signs - 24 hr 12/23/24 11:00 12/23/24 13:00 12/23/24 15:00 Temperature 97.5 F L Pulse Rate Pulse Rate [Right Radial] 102 H 93 Respiratory Rate 18 18 Blood Pressure Blood Pressure [Le ft Arm] 138/74 Blood Pressure [Ri ght Arm] Pulse Oximetry 97 98 Oxygen Delivery Me thod Room Air 12/23/24 15:00 12/23/24 16:45 12/23/24 19:00 Temperature 97.8 F 98.1 F Pulse Rate 95 Pulse Rate [Right Radial] 93 90 Respiratory Rate 18 18 Blood Pressure Blood Pressure [Le ft Arm] 136/83 Blood Pressure [Ri ght Arm] 133/67 Pulse Oximetry 97 96 Oxygen Delivery Me thod Room Air Room Air 12/23/24 19:50 12/23/24 20:10 12/23/24 20:41 Temperature 98.1 F 97.9 F 98.1 F Pulse Rate 90 82 88 Pulse Rate [Right Radial] Respiratory Rate 18 14 16 Blood Pressure 133/67 126/59 L 146/70 H Blood Pressure [Le ft Arm] Blood Pressure [Ri ght Arm] Pulse Oximetry 96 97 95 Oxygen Delivery Me thod Room Air Room Air Room Air 12/23/24 21:10 12/23/24 21:40 12/23/24 22:10 Temperature 98.1 F 97.9 F 97.9 F Pulse Rate 86 87 80 Pulse Rate [Right Radial] Respiratory Rate 18 14 16 Blood Pressure 148/75 H 145/73 H 131/67 Blood Pressure [Le ft Arm] Blood Pressure [Ri ght Arm] Pulse Oximetry 98 97 Oxygen Delivery Me thod Room Air Room Air Room Air 12/23/24 22:25 12/23/24 23:25 12/23/24 23:25 Temperature 97.8 F 97.7 F Pulse Rate 82 81 Pulse Rate [Right Radial] 81 Respiratory Rate 18 18 Blood Pressure 152/81 H 145/75 H Blood Pressure [Le ft Arm] Blood Pressure [Ri ght Arm] Pulse Oximetry 96 96 Oxygen Delivery Me thod Room Air Room Air 12/23/24 23:52 12/24/24 04:05 12/24/24 07:00 Temperature 97.7 F 97 F L Pulse Rate 88 Pulse Rate [Right Radial] 94 100 Respiratory Rate 20 20 Blood Pressure Blood Pressure [Le ft Arm] 155/78 H 153/83 H Blood Pressure [Ri ght Arm] Pulse Oximetry 98 97 Oxygen Delivery Me thod Room Air Room Air 12/24/24 07:00 Temperature Pulse Rate 94 Pulse Rate [Right Radial] Respiratory Rate Blood Pressure Blood Pressure [Le ft Arm] Blood Pressure [Ri ght Arm] Pulse Oximetry Oxygen Delivery Me thod Transfer Discharge Sum: Data Imaging CT scan - abdomen: Attestation: I have reviewed the pertinent imaging results. Radiologist's impression: CT abdomen and pelvis acquired without and with 95 cc of Isovue 370 IV contrast per GI bleed protocol. Sagittal, coronal and maximum intensity projection reformatted images submitted for review. COMPARISON: CT abdomen and pelvis 05/18/2018. FINDINGS: Lower chest: Mild bibasilar atelectasis. No pleural or pericardial effusions. Liver: Fatty change. No focal lesion. Spleen: Calcified granulomata. Pancreas: Cystic lesion in the body of the pancreas measuring 2.7 cm has slightly increased but is of doubtful significance. Pancreas is otherwise unremarkable. Gallbladder and bile ducts: Cholecystectomy. No ductal dilatation. Kidneys: Left greater than right scarring/atrophy, unchanged. No urolithiasis, hydronephrosis or suspicious lesion. Adrenal glands: Unremarkable. GI tract: Distal colonic diverticulosis without evidence of acute diverticulitis. No focal density or contrast blush to suggest cause or site of reported GI bleed. No obstruction or inflammatory change elsewhere. No free air, free fluid or suspicious fluid collection. Lymph nodes: No pathologic lymphadenopathy. Vascular structures: Atherosclerotic disease. No abdominal aortic aneurysm. 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 Pelvic Organs: Unremarkable. Bones: No acute or suspicious osseous abnormality. Right hip arthroplasty appears intact. Degenerative changes of the spine and left hip. IMPRESSION: 1. Colonic diverticulosis without evidence of acute diverticulitis. 2. No other finding to suggest cause for GI bleed. 3. Cystic lesion in the body of the pancreas measuring 2.7 cm can be further evaluated with pancreas protocol CT in 2 years, as indicated. Transfer Discharge Sum: A/P Plan Cognitive capacity at transfer: Baseline Functional capacity at transfer: independent ambulation Overall status at transfer: patient is progressing back to baseline Discharge Plan Discharge Disposition: [facility] Discharge Location: [facility] Date of Admission: 12/21/24 13:36 Attending Provider on Discharge: Lucinda Marquez Primary Care Provider: Lisandro Garcia Condition: Stable Discharge Orders: Transfer of Care to Other Hospital (ORDER); Ordered 12/24/24 Ordered By: Lucinda Marquez Oxygen: No Urinary Catheter: No Drips/Lines: peripheral IV Services not available here: GI/General Surgery
[2024-12-24 11:00] VITALS: BP 152/74; PULSE 107; RESP 20; TEMP 36.6; O2SAT 93
[2024-12-24 13:00] VITALS: O2SAT 96
[2024-12-24 15:00] VITALS: BP 150/68; PULSE 103; PULSE 107; PULSE 93; RESP 18; TEMP 36.7; O2SAT 94
[2024-12-24] MEDS: CARBOXYMETHYLCELLULOSE (REFRESH PLUS) TEARS 1 DROP EYE-BOTH (15:49)
--- NOTE | 2024-12-24 18:47 | PC.NURSE ---
Discharge Note (CCU1)? ? Patient has been very pleasant and cooperative throughout the shift. He was admitted for GI bleeding with a Hgb of 6.5. His latest lab showed a result of HGB 8.3, but stools continue to be melanotic.? He states his pain level is zero. He had surgery for femur repair on 11/24?Patient will transfer to [facility] for further surgical intervention. He moves SBA with walker and gait belt. Patient will be transferred for further treatment and surgical intervention to [facility]. Patient remains?NPO for transfer. Discharge was at 18:41? ?
--- NOTE | 2024-12-24 18:59 | PC.NURSE ---
Patient vital signs WNL. NPO for entire shift, in anticipation of transfer/GI intervention. Pt had multiple black tary stools throughout the shift. Denies pain. at bedside and supportive. Placement found for a bed at [facility]. Nurse called at 1800 to say that bed was available and Nurse to nurse was given at that time. Forms signed prior to departure via EMS. Belongings sent with , Melissa who will meet patient at the hospital.
== END 2024-12-24 18:41 | disposition short-term general hospital (02) | DRG 378 ==
LOC: ED 11:13 → MEDSURG 13:37
PROVIDERS: Internal Medicine; Physician Assistant; Admitting Provider Family Medicine; Emergency Provider Family Medicine; PCP Family Medicine; Visit Provider Family Medicine
DX: K26.0 Acute duodenal ulcer with hemorrhage (principal); D62 Acute posthemorrhagic anemia; N18.4 Chronic kidney disease, stage 4 (severe); K86.2 Cyst of pancreas; T39.395A Adverse effect of other nonsteroidal anti-inflammatory drugs [NSAID], initial encounter; I12.9 Hypertensive chronic kidney disease with stage 1 through stage 4 chronic kidney disease, or unspecified chronic kidney disease; E11.22 Type 2 diabetes mellitus with diabetic chronic kidney disease; Z79.84 Long term (current) use of oral hypoglycemic drugs; K57.30 Diverticulosis of large intestine without perforation or abscess without bleeding; I25.10 Atherosclerotic heart disease of native coronary artery without angina pectoris; Z95.5 Presence of coronary angioplasty implant and graft
CPT/HCPCS: 36415; 36430; 74174; 80048; 80069; 80076; 82962; 85018; 85025; 85027; 86850; 86900; 86901; 86922; 93005; 99284; 99285; A9270; J2270; J2470; J7030; P9016; Q9967

== ENCOUNTER 2024-12-24 18:25 | Outpatient (CLI) | payer MEDICARE, BC, SELFPAY | END 2024-12-24 18:26 | disposition home or self-care (01) | PROVIDERS: PCP Family Medicine; Visit Provider Family Medicine | DX: K26.9 Duodenal ulcer, unspecified as acute or chronic, without hemorrhage or perforation (principal) | CPT/HCPCS: A0425; A0427 ==

== ENCOUNTER 2025-02-12 21:00 | Outpatient (CLI) | payer MEDICARE, BC, SELFPAY | END 2025-02-12 21:01 | disposition home or self-care (01) | LOC: AMB 02-16 11:57 | PROVIDERS: PCP Family Medicine; Visit Provider Family Medicine | DX: R41.82 Altered mental status, unspecified (principal) | CPT/HCPCS: A0425; A0429 ==

== ENCOUNTER 2025-02-12 21:37 | Observation (INO) | payer MEDICARE, BC, SELFPAY ==
[2025-02-12] VITALS (9 sets, daily range): BP systolic 191–200; BP diastolic 81–101; PULSE 69–80; RESP 11–20; TEMP 36.5; O2SAT 97–99; BMI 27.1
--- OUTSIDE RECORDS SUMMARY | 2025-02-12 21:44 | XMS_ITS | Encounter Summary ---
Author Organization [facility] Address [address] [place] [address] Phone Care Team Providers Care Laser Set Up Operator Name Role Phone Lisandro Garcia MD Primary Care Provider [phone] Encounter Details Date Type Department Care Team (Late st Contact Info) Description 09/06/2024 Orders Only [facility] [address] [place] [address] Solitario Garcia MD [address] [place] [address] Chronic kidney disease stage 4 [...] ORDERABLES Final Re sult Performing Organization Address [facility] de Phone Number [facility] * (ABNORMAL) [...] Solitario Garcia MD LAB BLOOD ORDERABLES Final [facility] Performing Organization Address [facility] Co de Phone Number [facility] documented in this encounter Visit Diagnoses Diagnosis Chronic kidney disease stage 4 (HCC) documented in this encounter Care Teams Laser Set Up Operator Relationship Specialty Start Date End Date Lisandro Garcia MD [address] [place] [address] PCP - General Family Medicine 05/11/24 documented as of this encounter
--- OUTSIDE RECORDS SUMMARY | 2025-02-12 21:44 | XMS_ITS | Clinical Summary ---
Author Organization [facility] Address [address] [place] [id number] Care Team Providers Care Building Services Supervisor Name Role Phone Lisandro Garcia MD [...] 1,000 mg by mouth once daily. Active sildenafil citrate (VIAGRA) 50 mg tabletIndications :Erectile dysfunction, unspecified erectile dysfunction type Take 1 Tablet (50 mg) by mouth once daily if needed for Erectile Dysfunction. Take 30min to 4 hours before sexual activity. Max 100mg/24hr 10 Tablet 6 11/15/19 22 Active Sgvor-6-BGF-EPA-F sandra Oil (Fish OiL) 1,000 mg (120 mg-180 mg) cap Take 1 Capsule by mouth once daily. Active rosuvastatin (CRESTOR) 10 mg tabletIndications :Hyperlipidemia, unspecified hyperlipidemia type Take 1 Tablet (10 mg) by mouth at bedtime. 90 Tablet 3 04/13/20 24 Active metoprolol succinate 25 mg Sustained-Release tablet Take 25 mg by mouth once daily. Active blood sugar diagnostic (Blood Glucose Test) stripIndications: Type 2 diabetes mellitus without complication, without long-term current use of insulin (HC) Test one time per day. 100 Each 3 10/13/19 25 Active cholecalciferol (Vitamin D3) 5,000 unit tab tablet Take 5,000 units by mouth once daily. Active Multivit-Mineral- Iron-Lutein tab Take 1 Tablet by mouth once daily. 11/28/19 25 Active coenzyme Q10 400 mg cap Take 400 mg by mouth once daily. Active vitamin E (dl,tocopheryl acet) (Vitamin E (DL, Acetate)) 400 unit capsule Take 400 units by mouth once daily. Active acetaminophen SR (Tylenol Arthritis Pain) 650 mg Extended-Release tablet Take 1,300 mg by mouth every 8 hours if needed. Max acetaminophen dose: 4000mg in 24 hrs. Active omeprazole (PRILOSEC) 20 mg Delayed-Release capsuleIndication s:Gastrointestina l hemorrhage associated with duodenal ulcer Take 1 Capsule (20 mg) by mouth two times daily before meals. 120 Capsule 01/01/20 25 Active glipiZIDE extended-release (GLUCOTROL XL) 2.5 mg Extended-Release tabletIndications :Type 2 diabetes mellitus without complication, without long-term current use of insulin (HC) Take 1 Tablet (2.5 mg) by mouth once daily before a meal. 90 Tablet 1 01/21/20 25 Active glipiZIDE extended-release 2.5 mg Extended-Release tabletIndications :Type 2 diabetes mellitus without complication, without long-term current use of insulin (HC) Take 1 Tablet (2.5 mg) by mouth once daily before a meal. 90 Tablet 1 10/13/19 25 025 Discontin ued(Reord er (E-cancel not sent)) Active Problems Problem Noted Date Diagnosed Date GI bleeding due to duodenal ulcer 12/24/2024 Frailty 12/20/2024 Proteinuria 05/11/2024 CKD (chronic kidney disease) stage 4, GFR 15-29 ml/min 06/05/2023 Bilateral lower extremity edema 04/17/2023 Type 2 diabetes mellitus wit h stage 3 chronic kidney disease, unspecified whether group home insulin use, unspecified whether stage 3a or 3b CKD 09/09/2022 Urinary retention 12/19/2021 Erectile dysfunction 11/14/2021 Pancreatic mass 09/07/2018 Overview (09/07/2018): Cystic mass in Pancreas noted on CT at [facility] in 05/2018. Pancreatic MRI recommend to follow up on this area in 05/2019. Essential hypertension 08/31/2018 CAD: SETH to diag 01/200508/16/2017 Overview (11/26/2019): He had a stent placed in the diagonal branch of his left anterior descending artery on 01/03/2005 at [facility]. Hyperlipidemia LDL goal < 70 05/18/2012 Resolved Problems Problem Noted Date Diagnosed Date Resolved Date Positive for macroalbuminuria 12/19/2021 01/20/2025 Coronary artery disease due to lipid rich plaque 08/31/2018 09/08/2020 Injury of right rotator cuff 09/26/2017 09/08/2020 Arthritis of right hip 04/18/201702/13 Type 2 diabetes mellitus wit hout complication, without long-term current use of insulin 01/18/2016 01/20/2025 Overview (01/18/2016): Diagnosed 01/2016 Erectile dysfunction 09/07/2014 021 Elevated creatine kinase 12/30/201111/2020 Unspecified hypothyroidism 01/03/2009 0 11/14/2021 Knee pain 01/02/2009 09/08/2020 Encounters Date Type Department Care Team Description 01/27/20 Orders Only [facility] Scanner 1 scan: (1-Ord) [facility] , 01/26/2025 01/21/20 10:35 AM CDT Office Visit [facility] [address] [place] [address] Lisandro Garcia MD Medicare ANNUAL (subsequent) Visit (84 year old); Follow Up (Blood pressure) 01/21/20 Travel 01/01/20 11:15 AM CDT Office Visit [facility] [place] [address] Sil Joseph, [facility] F/U (ANW GI bleeding, duodenal ulcer) 01/01/20 25 Travel 12/29/19 Patient Outreach [facility] [address] [place] [address] Lindsey Badillo, RN Primary RN Care Management; Hospital F/U (Lace 60) 12/26/19 3:05 PM CDT - 12/26/19 3:59 PM CDT Surgery [facility] [address] [place] [address] Kurt Khan, ESOPHAGOGASTRODUODENOSCOPY WITH HEMOSTASIS AND BIOPSY 12/25/19 7:32 PM CDT - 12/28/19 3:19 PM CDT Hospital Encounter [facility] [address] [place] [address] [facility], [facility] Hospitalists Of [facility] Lucas MD Joson, Timothy Joseph Ngui, MD GI bleeding due to duodenal ulcer (Primary Dx) Discharge Disposition: Home Self Care 12/25/19 Travel 12/22/19 Orders Only [facility] Scanner 1 scan: (1-Ord) [facility], CT ANGIO ABD PEL GI BLEED., 12/21/2024 12/21/19 1:40 PM CDT Office Visit [facility] [address] [place] [address] Lisandro Garcia MD Hospital F/U ([facility] (11/22/2024), [facility] (11/22/2024 - 11/26/2024), [facility] (11/26/2024 - 12/09/2024) - femur fracture/[facility] (12/13/2024 - 12/15/2024) bleeding ulcer) 12/21/19 Travel 12/14/19 Nurse Triage [facility] [address] [place] [address] Lisandro Garcia MD Blood In Stool 12/07/[address] [facility] [phone] lEisa Inman, JONAH 11/23/19 Orders Only [facility] Scanner 1 scan: (1-Ord) [facility], XR FEMUR RT 2V, 11/22/2024 11/23/19 Orders Only [facility] Scanner 1 scan: (1-Ord) [facility], XR KNEE RT 2V, 11/22/2024 from Last 3 Months Immunizations Immunization Administration [...] Answer Date Recorded PHQ-2 TOTAL SCORE 0 01/20/2025 Social Connections Answer Date Recorded Do you often feel lonely or isolated from those around you? 0 12/24/2024 Alcohol Use Answer Date Recorded How often do you have a drink containing alcohol ? 0 01/20/2025 Average Number of Drinks Not on file 025 Frequency of Binge Drinking Not on file 01/03 Financial Resource Strain Answer Date R ecorded Difficulty of Paying Living Expenses 3 05/11/2024 Difficulty of Paying Living Expenses Not on file 05/11/2024 Food Insecurity Answer Date Recorded Do you worry your food will run out before you are able to buy more? 1 12/24/2024 Transportation Needs Answer Date Record ed Does lack of transportation keep you from medica l appointments? 1 12/24/2024 Does lack of transportation keep you from work, meetings or getting things that you need? 1 12/24/2024 Housing Stability Answer Date Recorded What is your housing situation today? 1 12/24/2024 Interpersonal Safety Answer Date Record ed Are you being hit, kicked, p ushed or yelled at (see row info)? No 12/24/2024 Interpersonal Safety Abuse 12 - 18 Not on file 12/24/2024 Interpersonal Safety Ambulatory Vulnerability No t on file 12/24/2024 Utilities Answer Date Recorded Do you have trouble paying f or utilities (for example, heat, electricity, water, phone)? 1 12/24/2024 Sex and Gender Information Value Date Recorded Sex Assigned at Not on file Legal Sex Male 7:11 AM [employer] Gender Identity Not on file Sexual Orientation Not on file Occupation Industry Job Start Date Job End Date [employer] Not on file Not on file Not on file Obstetrics History Last Filed Vital Signs Vital Sign Reading Time Taken Comments Blood Pressure 145/65 01/20/2025 11:02 AM CDT Pulse 70 01/20/2025 10:46 AM CDT Temperature 36.9 C (98.5 F) 12/27/2024 8:05 AM CDT Respiratory Rate 16 12/27/2024 8:05 AM CDT Oxygen Saturation 98% 01/20/2025 10:46 AM CDT Inhaled Oxygen Concentration - - Weight 83.9 kg (185 lb) 01/20/2025 10:46 AM CDT Height 171.5 cm (5' 7.52) 01/20/2025 10:46 AM C DT Body Mass Index 28.53 01/20/2025 10:46 AM CDT Plan of Treatment Upcoming Encounters Date Type Department Care Team (Late st Contact Info) Description 04/18/2025 11:15 AM VP PUBL[employer]ER [employer]ELOPMENT Orders Only [facility] [address] [place] [address] Lab, [place] 04/21/2025 10:10 AM [employer] Office Visit [facility] [address] [place] [address] Lisandro Garcia MD [address] [place] [address] Health Maintenance Due Date Last Done Comments Pneumococcal series for age 50+ (1 of 2 - PCV) 1958 Zoster (shingles) series for age 50+ (1 of 2) 1989 Tetanus booster 04/01/2010 04/01/2000 RSV vaccine for adults or (1 - 1-dose 75+ series) 2014 COVID-19 vaccine series ( - season) 2025 Influenza Vaccine (#1) 2025 BMI (ht and wt on same day) for age 18+ 01/20/2026 01/20/2025, 10/12/2024, 07/08/2023, Additional history exists Depression screening for age 12+ 01/20/2026 01/20/2025, 02/15/2023, 02/13/2023, Additional history exists Medicare Wellness for age 65+ 01/21/2026, 02/13/2023, 04/18/2017 Hepatitis B series for 19+ Completed 12/05, 07/13/2001, 04/01/2000 Procedures Procedure Name Priority Date/Time Associated Diagnosis Comments SCAN-EYE EXAM 01/26/2025 12:00 AM CDT HEMOGLOBIN A1C MONITORING (POCT) Routine 01/20/2025 11:47 AM CDT Type 2 diabetes mellitus without complication, without long-term current use of insulin (HC) HEMOGLOBIN Routine 01/20/2025 11:47 AM CDT Anemia due to acute blood loss HEMOGLOBIN Routine 12/31/2024 11:39 AM CDT Hospital discharge follow-up GI bleeding due to duodenal ulcer SCAN CORRESP-EKG RESULTS 025 12:33 PM CDT SCAN CORRESP-LABORATORY RESULTS 12/27/2024 12:33 PM CDT SCAN CORRESP-IMAGING 12/27/2024 12:33 PM CDT GLUCOSE METER Timed 12/27/2024 12:13 PM CDT GLUCOSE METER Timed 12/27/2024 8:15 AM CDT HEMOGLOBIN Early AM 12/27/2024 6:47 AM CDT GLUCOSE METER Timed 12/27/2024 6:37 AM CDT GLUCOSE METER Timed 12/26/2024 9:52 PM CDT HEMOGLOBIN STAT 12/26/2024 9:51 PM CDT GLUCOSE METER Timed 12/26/2024 5:37 PM CDT GLUCOSE METER Timed 12/26/2024 1:17 PM CDT BASIC METABOLIC PANEL Early AM 12/26/2024 11:33 AM CDT HEMOGLOBIN Timed 12/26/2024 11:33 AM CDT GLUCOSE METER Timed 12/26/2024 6:28 AM CDT HEMOGLOBIN Timed 12/26/2024 1:52 AM CDT GLUCOSE METER Timed 12/25/2024 10:17 PM CDT HEMOGLOBIN Timed 12/25/2024 6:26 PM CDT GLUCOSE METER Timed 12/25/2024 6:12 PM CDT PATH TISSUE EXAM Today 12/25/2024 4:21 PM CDT ESOPHAGOGASTRODUODENOSCOPY W ITH HEMOSTASIS 12/25/2024 3:50 PM CDT See MD procedure note SWAPNA AURIS SURVEILLANCE NONBLOOD STAT 12/25/2024 1:40 PM CDT GLUCOSE METER Timed 12/25/2024 1:39 PM CDT ENDOSCOPY 12/25/2024 1:20 PM CDT HEMOGLOBIN Timed 12/25/2024 12:46 PM CDT GLUCOSE METER Timed 12/25/2024 9:19 AM CDT CREATININE Early AM 12/25/2024 6:19 AM CDT HEMOGLOBIN Early AM 12/25/2024 6:19 AM CDT CP-NEW BUSINESS CLERK SURVEILLANCE NONBLOOD STAT 10:50 PM CDT GLUCOSE METER Timed 12/24/2024 9:55 PM CDT PROTIME-INR Today 12/24/2024 9:19 PM CDT BASIC METABOLIC PANEL Timed 12/24/2024 9:19 PM CDT CBC W PLT NO DIFF Today 12/24/2024 9:19 PM CDT SCAN-CT INTERPRETATION 12:00 AM CDT HEMOGLOBIN Routine 12/20/2024 2:20 PM CDT Acute blood loss as cause of postoperative anemia IRON PLUS IRON BINDING CAP Routine 12/20 2:20 PM CDT Acute blood loss as cause of postoperative anemia FERRITIN Routine 12/20/2024 2:20 PM CDT Acute blood loss as cause of postoperative anemia BASIC METABOLIC PANEL Routine 12/20/2024 2:20 PM CDT Stage 3b chronic kidney disease (HC) CBC WITH AUTO DIFFERENTIAL Routine 12/07 10:09 AM CDT Encounter for other specified surgical aftercare BASIC METABOLIC PANEL Routine 12/07/2024 10:09 AM CDT Encounter for other specified surgical aftercare CBC WITH AUTO DIFFERENTIAL Routine 12/07 10:09 AM CDT Encounter for other specified surgical aftercare SCAN-RADIOLOGY REPORT 11/22/2024 12:00 AM CDT SCAN-RADIOLOGY REPORT 11/22/2024 12:00 AM CDT from Last 3 Months Results * SCAN-EYE EXAM (01/26/2025 12:00 AM CDT) us Scanner OTHER Final Result * (ABNORMAL) HEMOGLOBIN (01/20/2025 11:47 AM CDT) Only the most recent of10 resultswithin the time period is included. HEMOGLOBIN 10.3(L) 13.2 - 17.1 g/dL 01/21/2025 4:13 AM CDT [facility] MCV 97.7 80.0 - 100.0 fL 01/21/2025 4:13 AM CDT [facility] Blood BLOOD SPECIMEN / Unknown [facility] / Unknown 01/20/2025 11:47 AM CDT 01/20/2025 11:47 AM CDT us Lisandro Garcia MD HEMATOLOGY Final Result Performing Organization Address City/[facility]/ZIP Co de Phone Number [employer] [address] [address], [place] [phone] * (ABNORMAL) HEMOGLOBIN A1C MONITORING (POCT) (01/20/2025 11:47 AM CDT) [facility] POC HEMOGLOBIN A1C 6.2(H) <6.0 % OF TOTAL HGB 01/20/2025 11:56 AM CDT [facility] Comment: Any point of care results exhibiting inconsistency with the patient's clinical status should be repeated using a different testing method. Blood BLOOD SPECIMEN / Unknown [facility] / Unknown 01/20/2025 11:47 AM CDT 01/20/2025 11:47 AM CDT Lisandro Garcia MD CHEMISTRY Final Result Performing Organization Address City/[facility]/ZIP Co de Phone Number [employer] [address] [address], [place] [phone] [address], [place] [phone] * SCAN CORRESP-LABORATORY RESULTS (12/27/2024 12:33 PM CDT) Narrative 12/27/2024 12:33 PM CDT Ordered by an unspecified provider. us Other Clinical Staff OTHER Final Resul t * SCAN CORRESP-EKG RESULTS (12/27/2024 12:33 PM CDT) Narrative 12/27/2024 12:33 PM CDT Ordered by an unspecified provider. us Other Clinical Staff OTHER Final Resul t * SCAN CORRESP-IMAGING (12/27/2024 12:33 PM CDT) Anatomical Region Laterality Modality Other Narrative 12/27/2024 12:33 PM CDT Ordered by an unspecified provider. us Other Clinical Staff OTHER Final Resul t * (ABNORMAL) GLUCOSE METER (12/27/2024 12:13 PM CDT) Only the most recent of12 resultswithin the time period is included. GLUCOSE METER 264(H) 65 - 100 mg/dL 12/27/2024 12:14 PM CDT [facility] Blood BLOOD SPECIMEN / Unknown 12/27/2024 12:13 PM CDT 12/27/2024 12:13 PM CDT El Lucas MD CHEMISTRY Final Resu lt [facility] [address] [place] [address], * (ABNORMAL) Basic metabolic panel AM (12/26/2024 11:33 AM CDT) Only the most recent of4 resultswithin the time period is included. SODIUM 138 136 - 145 mmol/L 12/26/2024 12:14 PM CDT [facility] POTASSIUM 4.5 3.5 - 5.1 mmol/L 12/26/2024 12:14 PM CDT [facility] CHLORIDE 106 98 - 107 mmol/L 12/26/2024 12:14 PM CDT [facility] CO2,TOTAL 18(L) 22 - 29 mmol/L 12/26/2024 12:14 PM CDT [facility] ANION GAP 14 5 - 18 12/26/2024 12:14 PM CDT [facility] GLUCOSE 205(H) 70 - 99 mg/dL 12/26/2024 12:14 PM T [facility] CALCIUM 9.9 8.8 - 10.4 mg/dL 12/26/2024 12:14 PM T [facility] Comment: Reference ranges for this test were updated on 03/09/2024 to reflect our healthy population more accurately. Reference range changes are not retroactively applied to results, but previous results using the same methodology can be interpreted in the context of the new reference range. BUN 55(H) 8 - 23 mg/dL 12/26/2024 12:14 PM T [facility] CREATININE 2.74(H) 0.70 - 1.20 mg/dL 12/26/2024 12:14 PM T [facility] BUN/CREAT RATIO 20 10 - 20 12:14 PM T [facility] eGFR 22(L) >90 mL/min/1. 73m2 12/26/2024 12:14 PM T [facility] Comment:As of 2021, eG FR is calculated by the CKD-EPI creatinine equation without race adjustment. eGFR can be influenced by muscle mass, exercise, and diet. The reported eGFR is an estimation only and is only applicable if the renal function is stable. Blood BLOOD SPECIMEN / Unknown [facility] / Unknown 12/26/2024 11:33 AM CDT 12/26/2024 11:41 AM CDT us Eris Narayan MD CHEMISTRY Fin al Result [facility] [address] [place] [address], * PATH TISSUE EXAM (12/25/2024 4:21 PM CDT) Case Report Pathology Report Case: [id number] Authorizing Provider: Kurt Khan DO Collected: 12/25/2024 1621 Ordering Location: [facility] Received: 12/25/2024 1708 [facility] Pathologist: Patricio Peters IV, MD Specimen: Gastric Biopsy 12/28/2024 8:57 AM CDT [facility] [employer] [facility] Final Diagnosis A) STOMACH, BIOPSY: 1. Normal gastric antral and body mucosae 2. Negative for Helicobacter 12/28/2024 8:57 AM CDT [facility] at 0857 CDT Clinical Information Mr. Allen is a 84 y.o. who presents with melena. EGD findings include: - Duodenal ulcer, normal stomach 12/28/2024 8:57 AM CDT [facility] Gross Description A) Received in formalin, labeled with the patient's name and gastric biopsy, are 5 soft pale-marie focally friable tissues which are submitted in toto in 1 cassette. Time and date in formalin: 1621 on 12/25/2024 LDW 12/27/2024 12/28/2024 8:57 AM CDT [facility] [employer] [facility] Microscopic Description The final diagnosis is based on microscopic examination of appropriate sections of all specimens. 12/28/2024 8:57 AM CDT [facility] [employer] [facility] Additional Information Interpreted at [facility] [employer] [facility] - [address] [address] 12/28/2024 8:57 AM CDT [facility] [employer] [facility] Biopsy GASTRIC BIOPSY SPECIMEN / Unknown 12/25/2024 4:21 PM CDT 12/25/2024 5:08 PM CDT Kurt Khan DO PATHOLOGY/CYTOLOGY Final Result [facility] [address] [place] [address], [place] * SWAPNA AURIS SURVEILLANCE (12/25/2024 1:40 PM CDT) Swapna auris Surveillance See Separate Report 12/29/2024 9:42 AM CDT [facility] Swab (Axillia Groin Swab) Non-Blood / Unknown 12/25/2024 1:40 PM CDT 12/25/2024 1:53 PM CDT us Chavez Lomeli RN MICROBIOLOGY Final Result [facility] [address] [place] [address], * ENDOSCOPY (12/25/2024 1:20 PM CDT) 12/25/2024 1:20 PM CDT Narrative Transcriptions Kurt Khan DO - 12/25/2024 4:39 PM CDT [facility] Patient Name: Braydon Allen Procedure Date: 12/25/2024 Gender: Male Date of : 1940 Admit Type: Inpatient Procedure: Upper GI endoscopy Proceduralist: Kurt Khan MD Indications/Pre-Op Diagnosis: Melena Medications: Monitored Anesthesia Care, Fentanyl 75 micrograms IV, Midazolam 3 mg IV Procedure Description: Risk of bleeding, infection, perforation, need for surgery and alternatives discussed. The endoscope [id number] was introduced through the mouth, and advanced to the second part of duodenum. The upper GI endoscopy was accomplished without difficulty. The patient tolerated the procedure well. Complications: No immediate complications. Estimated Blood Loss & Specimen: Estimated blood loss: none. Estimated blood loss: none. Specimen collected: Yes and sent to Laboratory Findings: The examined esophagus was normal. The Z-line was regular and was found 45 cm from the incisors. The entire examined stomach was normal. Biopsies were taken with acold forceps for Helicobacter pylori testing. One non-obstructing non-bleeding cratered duodenal ulcer with a small flat pigmented spot (Junior Class IIc) was found in the duodenalbulb. An overlying clot had been dislodged upon insertion into thedudodenum. The lesion was 5 mm in largest dimension. For hemostasis, three hemostatic clips were successfully placed (MR conditional). There wasno bleeding at the end of the procedure. For hemostasis, hemostaticspray was deployed. A single spray was applied. There was no bleeding atthe end of the procedure. The second portion of the duodenum was normal. Impressions/Post-Op Diagnosis: - Normal esophagus. - Z-line regular, 45 cm from the incisors. - Normal stomach. Biopsied. - Non-obstructing non-bleeding duodenal ulcer with a flat pigmentedspot (Junior Class IIc). Clips (MR conditional) were placed. Hemostatic spray applied. - Normal second portion of the duodenum. Recommendation: - [facility]. - NPO today then advance as tolerated tomorrow - Use Protonix (pantoprazole) 40 mg PO BID for 12 weeks. - Await pathology - Avoid NSAIDs Moderate Sedation: Moderate (conscious) sedation was administered by the nurse and supervised by the endoscopist. The following parameters weremonitored: oxygen saturation, heart rate, blood pressure, and response to care. Total physician intraservice time was 19 minutes. Kurt Khan MD 12/25/2024 4:39:11 PM This report has been signed electronically. Note Initiated On: 12/25/2024 1:20 PM us Kurt Khan DO PROCEDURE ORD Final Res ult * (ABNORMAL) CREATININE (12/25/2024 6:19 AM CDT) eGFR 22(L) >90 mL/min/1.7 3m2 12/25/2024 7:04 AM CDT [facility] Comment:As of 2021, eG FR is calculated by the CKD-EPI creatinine equation without race adjustment. eGFR can be influenced by muscle mass, exercise, and diet. The reported eGFR is an estimation only and is only applicable if the renal function is stable. CREATININE 2.74(H) 0.70 - 1.20 mg/dL 12/25/2024 7:04 AM CDT [facility] Blood BLOOD SPECIMEN / Unknown Venipuncture / Unknown 12/25/2024 6:19 AM CDT 12/25/2024 6:38 AM CDT us El Lucas MD CHEMISTRY Final Resu lt [facility] [address] [place] [address], * CP-NEW BUSINESS CLERK SURVEILLANCE (12/24/2024 10:50 PM CDT) VIM (carbapenem-r esistance gene) NOT Detected NOT Detected, N/A 12/25/2024 12:24 AM CDT [facility] IMP (carbapenem-r esistance gene) NOT Detected NOT Detected, N/A 12/25/2024 12:24 AM CDT [facility] NDM (carbapenem-r esistance gene) NOT Detected NOT Detected, N/A 12/25/2024 12:24 AM CDT [facility] KPC (carbapenem-r esistance gene) NOT Detected NOT Detected, N/A 12/25/2024 12:24 AM CDT [facility] OXA-48 like (carbapenem-r esistance gene) NOT Detected NOT Detected, N/A 12/25/2024 12:24 AM CDT [facility] Swab SPECIMEN FROM RECTUM / Unknown Non-Blood / Unknown 12/24/2024 10:50 PM CDT 12/24/2024 11:13 PM CDT us Chavez Lomeli RN MICROBIOLOGY Final Result [facility] [address] [place] [address], * (ABNORMAL) CBC no diff TODAY (12/24/2024 9:19 PM CDT) WHITE BLOOD COUNT 10.7 4.5 - 11.0 thou/cu mm 12/24/2024 9:38 PM CDT [facility] RED BLOOD COUNT 2.81(L) 4.30 - 5.90 mil/cu mm 12/24/2024 9:38 PM CDT [facility] HEMOGLOBIN 8.4(L) 13.5 - 17.5 g/dL 12/24/2024 9:38 PM CDT [facility] HEMATOCRIT 25.1(L) 37.0 - 53.0 % 12/24/2024 9:38 PM CDT [facility] MCV 89 80 - 100 fL 12/24/2024 9:38 PM CDT [facility] MCH 29.9 26.0 - 34.0 pg 12/24/2024 9:38 PM CDT [facility] MCHC 33.5 32.0 - 36.0 g/dL 12/24/2024 9:38 PM CDT [facility] RDW 17.3(H) 11.5 - 15.5 % 12/24/2024 9:38 PM CDT [facility] LABORATORY PLATELET COUNT 195 140 - 440 thou/cu mm 12/24/2024 9:38 PM CDT [facility] TRAL LABORATORY MPV 9.6 6.5 - 11.0 fL 12/24/2024 9:38 PM CDT [facility] TRAL LABORATORY NRBC 0.0 % 12/24/2024 9:38 PM CDT [facility] TRAL LABORATORY ABS NRBC 0.0 thou /cu mm 12/24/2024 9:38 PM CDT [facility] LABORATORY Blood BLOOD SPECIMEN / Unknown Venipuncture / Unknown 12/24/2024 9:19 PM CDT 12/24/2024 9:24 PM CDT El Lucas MD HEMATOLOGY Final Resu lt Performing Organization Address [facility] Co de Phone Number [facility] [address] [place] [id number], [place] * (ABNORMAL) INR TODAY (12/24/2024 9:19 PM CDT) INR 1.1 <1.3 12/24/2024 9:34 PM CDT [facility] LABOR[facility] PROTIME 12.8(H) 10.6 - 12.4 sec 12/24/2024 9:34 PM CDT [facility] Blood BLOOD SPECIMEN / Unknown Venipuncture / Unknown 12/24/2024 9:19 PM CDT 12/24/2024 9:24 PM CDT Narrative [facility] - 12/24/2024 9:34 PM CDT Therapeutic Range 2.0-3.0 for most anticoagulated patients 2.5-3.5 or 4.0 for high risk patients The INR is only used for patients on stable oral anticoagulant therapy. It makes no significant contribution to the diagnosis or treatment of patients whose Protime is prolonged for other reasons. INR results are increased when heparin levels exceed 1.0 U/mL, which corresponds to an aPTT >125 seconds if the patient is on UFH. El Lucas MD HEMATOLOGY Final Resu lt Performing Organization Address City/[facility]/ZIP Co de Phone Number [facility] [address] [place] [id number], [place] * SCAN-CT INTERPRETATION (12/21/2024 12:00 AM CDT) Anatomical Region Laterality Modality Other Scanner OTHER Final Result * (ABNORMAL) IRON PLUS IRON BINDING CAP (12/20/2024 2:20 PM CDT) Pathologist [facility] IRON, TOTAL 85 50 - 180 mcg/dL [facility] IRON BINDING CAPACITY 238(L) 250 - 425 mcg/dL (calc) [facility] % SATURATION 36 20 - 48 % (calc) [facility] Blood BLOOD SPECIMEN / Unknown 12/20/2024 2:20 PM CDT 12/20/2024 2:21 PM CDT Lisandro Garcia MD CHEMISTRY Final Result Performing Organization Address City/[facility]/ZIP Co de Phone Number [employer] [facility] [address] [place] [address], [employer] [facility] [address] [place] [address] * FERRITIN (12/20/2024 2:20 PM CDT) [facility] FERRITIN 285 24 - 380 ng/mL [employer] [facility] Blood BLOOD SPECIMEN / Unknown 12/20/2024 2:20 PM CDT 12/20/2024 2:21 PM CDT Lisandro Garcia MD CHEMISTRY Final Result [employer] [facility] [address] [place] [address], [place] [phone] [facility] [address] [place] [address] * (ABNORMAL) CBC WITH AUTO DIFFERENTIAL (12/07/2024 10:09 AM CDT) [facility] WHITE BLOOD COUNT 12.1(H) 4.5 - 11.0 thou/cu mm 12/07/2024 12:13 PM CDT [facility] RED BLOOD COUNT 2.85(L) 4.30 - 5.90 mil/cu mm 12/07/2024 12:13 PM CDT [facility] HEMOGLOBIN 9.0(L) 13.5 - 17.5 g/dL 12/07/2024 12:13 PM CDT [facility] HEMATOCRIT 27.0(L) 37.0 - 53.0 % 12/07/2024 12:13 PM CDT [facility] MCV 95 80 - 100 fL 12/07/2024 12:13 PM CDT [facility] MCH 31.6 26.0 - 34.0 pg 12/07/2024 12:13 PM CDT [facility] MCHC 33.3 32.0 - 36.0 g/dL 12/07/2024 12:13 PM CDT [facility] RDW 13.4 11.5 - 15.5 % 12/07/2024 12:13 PM CDT [facility] PLATELET COUNT 322 140 - 440 thou/cu mm 12/07/2024 12:13 PM CDT [facility] MPV 9.0 6.5 - 11.0 fL 12/07/2024 12:13 PM CDT [facility] NRBC 0.0 % 12/07/2024 12:13 PM CDT [facility] ABS NRBC 0.0 thou /cu mm 12/07/2024 12:13 PM CDT [facility] % NEUT 77.0 % 12/07/2024 12:13 PM CDT [facility] % LYMPH 8.9 % 12/07/2024 12:13 PM CDT [facility] % MONO 9.5 % 12/07/2024 12:13 PM CDT [facility] % EOS 3.7 % 12/07/2024 12:13 PM CDT [facility] % BASO 0.4 % 12/07/2024 12:13 PM CDT [facility] % IMMATURE GRAN (METAS,MYELOS,HI OS) 0.5 % 12/07/2024 12:[address] [facility] ABSOLUTE NEUTROPHILS 9.3(H) 1.7 - 7.0 thou/cu mm 12/07/2024 12:13 PM CDT [facility] ABSOLUTE LYMPHOCYTES 1.1 0.9 - 2.9 thou/cu mm 12/07/2024 12:13 PM CDT [facility] ABSOLUTE MONOCYTES 1.1(H) <0.9 thou/cu mm 12/07/2024 12:13 PM CDT [facility] ABSOLUTE EOSINOPHILS 0.4 <0.5 thou/cu mm 12/07/2024 12:13 PM CDT [facility] ABSOLUTE BASOPHILS 0.1 <0.3 thou/cu mm 12/07/2024 12:13 PM CDT [facility] ABSOLUTE IMMATURE GRANULOCYTES(MET ,MYELOS,PROS) 0.1 <0.3 thou/cu mm 12/07/2024 12:13 PM CDT [facility] Blood BLOOD SPECIMEN / Unknown Venipuncture / Unknown 12/07/2024 10:09 AM CDT 12/07/2024 11:50 AM CDT us Elisa Inman NP HEMATOLOGY Final Resul t [facility] [address] [place] [address] * SCAN-RADIOLOGY REPORT (11/22/2024 12:00 AM CDT) Only the most recent of2 resultswithin the time period is included. Anatomical Region Laterality Modality Other us Scanner OTHER Final Result from Last 3 Months Insurance MEDICARE PART A HB ONLY MEDICARE PART B HB ONLY BLUE [place]OSS [place] BLUE MR PB ONLY [place]UE [place] BLUE HB ONLY MEDICARE PPS [employer] INS Advance Directives * Full Code (Latest Code Status on File) Date Activated Date Inactivated Comments 12/24/2024 8:43 PM 12/27/2024 5:24 PM Question Answer Comments Code Status Discussion: Reviewed Preferences * Full Code Date Activated Date Inactivated Comments 06/20/2023 5:38 AM 06/21/2023 2:00 PM Should be di scussed pre operatively with anesthesia or surgeon Question Answer Comments Code Status Discussion: Not Discussed * Full Code Date Activated Date Inactivated Comments 01/03/2005 10:10 PM 01/05/2005 1:47 PM Care Teams Building Services Supervisor Relationship Specialty Start Date End Date Lisandro Garcia MD [address] [place] [address] PCP - General Family Practice 09/08/20
--- OUTSIDE RECORDS SUMMARY | 2025-02-12 21:44 | XMS_ITS | Clinical Summary ---
Author Organization [facility] [place] [place] Address [address] [place] [address] Phone Care Team Providers Care Garage Door Installer Name Role Phone Lisandro Garcia MD Primary Care Provider [phone] Allergies Active Allergy Reactions Criticality Noted Date Comments Adhesive Tape Rash Low 09/02/2018 Atorvastatin Diarrhea High 11/22/2021 Lisinopril Diarrhea 02/13/2023 Other 05/13/2024 Oxycodone Other (see comments) 08/20/2017 Pt reported Pseudoephedrine Other (see comments) 05/13/2024 Medications ascorbic acid (VITAMIN C) 1000 MG tablet Take 1,000 mg by mouth in the morning. Active cholecalciferol (VITAMIN D-3) 250 MCG (03933 UT) capsule Take 125 mcg by mouth 1 (one) time each day Active glipiZIDE (GLUCOTROL XL) 2.5 MG 24 hr tablet Take 2.5 mg by mouth in the morning. 04/13/2024 Active olmesartan (BENICAR) 40 MG tablet Take 20 mg by mouth 1 (one) time each day 05/11/2024 Active [place] 3 1000 MG capsule Take 1 capsule [...] left anterior descending artery on 01/03/2005 at [facility]. Hyperlipidemia 05/18/2012 Family History Medical History Relation Comments Diabetes [...] on patient's age to complete this topic Insurance [facility] Care Teams Garage Door Installer Relationship Specialty Start Date End Date Lisandro Garcia MD [address] [place] [address] PCP - General Family Medicine 05/11/24
--- NOTE | 2025-02-12 21:54 | CRLHL7_ITS ---
For Patients: As a result of the Century Cures Act, medical imaging exams and procedure reports are released immediately into your electronic medical record. You may view this report before your referring provider. If you have questions, please contact your health care provider. Indication: Altered mental status Technique: Noncontrast CT through the head with multiplanar reformats Comparison: None Findings: Brain: No acute hemorrhage. No acute infarct. No significant mass effect or midline shift. No gross evidence of a mass lesion or cerebral edema. Severe chronic senescent disease. Ventricles: No acute abnormality appreciated. Orbits, sinuses, mastoids: No acute abnormality appreciated. Calvarium and soft tissues: No acute abnormality appreciated. Impression: No acute intracranial abnormality appreciated. Please note that all CT scans at this facility use dose modulation, iterative reconstruction, and/or weight-based dosing when appropriate to reduce radiation dose to as low as reasonably achievable. Dictated by Milton Hull MD @ 02/12/2025 11:12:41 PM (Electronically Signed)
--- NOTE | 2025-02-12 21:54 | CRLHL7_ITS ---
For Patients: As a result of the Century Cures Act, medical imaging exams and procedure reports are released immediately into your electronic medical record. You may view this report before your referring provider. If you have questions, please contact your health care provider. INDICATION: Acute stroke. TECHNIQUE: CTA head using intravenous contrast with bolus tracking, 3D angiographic rendering using maximum intensity projection (MIP) and images permanently archived. CTA neck using intravenous contrast with bolus tracking, 3D angiographic rendering using maximum intensity projection (MIP) and images permanently archived. FINDINGS/IMPRESSION: This is a nondiagnostic examination due to missed timing of the contrast bolus. Please note that all CT scans at this facility use dose modulation, iterative reconstruction, and/or weight-based dosing when appropriate to reduce radiation dose to as low as reasonably achievable. Dictated by Chicho Alan MD @ 02/13/2025 12:53:07 PM (Electronically Signed)
[2025-02-12 22:21] LABS: Lactate* 1.8 mmol/L (0.5-1.9)
[2025-02-12 22:23] LABS: Hematocrit* 35.4 % (37.0-53.0); Hemoglobin* 11.7 gm/dL (13.5-17.5); Immature Granulocytes Abs Auto 0.01 K/uL (0.00-0.30); Immature Granulocytes Pct Auto 0.1 %; Mean Corpuscular HGB Conc 33 gm/dL (32-36); Mean Corpuscular Hemoglobin 30 pg (26-34); Mean Corpuscular Volume 91 fL (80-100); RDW Coefficient of Variation % 13.7 % (11.5-15.5); Red Blood Count* 3.88 m/uL (4.30-5.90); White Blood Count* 8.15 K/uL (4.50-11.00)
[2025-02-12 22:24] LABS: Lymphocytes Absolute Auto 1.30 K/uL (0.90-2.90); Slide Review Reflex No
--- NOTE | 2025-02-12 22:31 | ED.GENADULT ---
HPI - General Adult General Chief complaint: Altered Mental Status Stated complaint: altered mental status Time Seen by Provider: 02/12/25 21:53 Source: patient and family Mode of arrival: EMS Limitations: altered mental status History of Present Illness HPI narrative: 84-year-old male presenting today secondary to altered mental status. Per his starting at 9:00 a.m. this morning, patient has been acting unlike himself. He has gotten progressively more lethargic as the day has gone by. He has difficulty finding words, has not been making sense. He does use a walker to ambulate, has been having a hard time even using his walker, seems much weaker. denies fevers, vomiting, recent changes in appetite or recent illness. Patient has no complaints, states that he feels fine. No known history of trauma. Past medical history significant for chronic kidney disease, diabetes type 2, hypertension, coronary artery disease. 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 Related Data Home Medications ?Medication ?Instructions ?Recorded ?Confirmed ascorbic acid (vitamin C) 1,000 mg 1 g PO DAILY 07/16/23 12/21/24 capsule cholecalciferol (vitamin D3) 125 125 mcg PO DAILY 07/16/23 12/21/24 mcg (5,000 unit) capsule glipizide 2.5 mg tablet, extended 2.5 mg PO DAILY 07/16/23 12/21/24 release 24 hr omega 1-dng-hen-fish oil 1,000 mg 1 cap PO DAILY 07/16/23 12/21/24 (120 mg-180 mg) capsule (Fish Oil) sildenafil 50 mg tablet (Viagra) 50 mg PO DAILY PRN 07/16/23 12/21/24 metoprolol succinate 25 mg 25 mg PO DAILY 06/28/24 12/21/24 tablet,extended release 24 hr olmesartan 40 mg tablet 40 mg PO DAILY 06/28/24 12/21/24 blood sugar diagnostic (True 12/13/24 12/13/24 Metrix Glucose Test Strip) rosuvastatin 10 mg tablet 10 mg PO HS 12/13/24 12/21/24 Previous Rx's ?Medication ?Instructions ?Recorded acetaminophen 500 mg capsule 500 - 1,000 mg (1 - 2 x 500 mg) PO 07/17/23 Q6H PRN #100 caps omeprazole 20 mg capsule,delayed 20 mg PO DAILY #30 caps 12/15/24 release Allergies Allergy/AdvReac Type Severity Reaction Status Date / Time pseudoephedrine (From Allergy Intermediate unable to Verified 12/21/24 11:10 Sudafed) urinate cat dander Allergy Unknown Verified 12/21/24 11:10 oxycodone Allergy Unknown hallucinati Verified 12/21/24 11:10 ons adhesive Allergy Rash Verified 12/21/24 11:10 atorvastatin AdvReac Diarrhea Verified 12/21/24 11:10 Review of Systems Status of ROS: Reports: 10 or more systems reviewed and unremarkable except as noted in History and below [facility] Medical History (Updated 02/12/25 @ 23:06 by Jeannette Chavez MD) Osteoarthritis of left hip ?M16.12 - Unilateral primary osteoarthritis, left hip (ICD-10) Duodenal ulcer ?K26.9 - Duodenal ulcer, unspecified as acute or chronic, without hemorrhage or perforation (ICD-10) GI (gastrointestinal bleed) ?K92.2 - Gastrointestinal hemorrhage, unspecified (ICD-10) Pancreatic mass ?K86.89 - Other specified diseases of pancreas (ICD-10) Chronic kidney disease (CKD), stage 4 ?N18.4 - Chronic kidney disease, stage 4 (severe) (ICD-10) Traumatic tear of right rotator cuff ?S46.011A - Strain of muscle(s) and tendon(s) of the rotator cuff of right shoulder, initial encounter (ICD-10) MRSA infection ?A49.02 - Methicillin resistant Staphylococcus aureus infection, unspecified site (ICD-10) Arthritis ?M19.90 - Unspecified osteoarthritis, unspecified site (ICD-10) Type 2 diabetes mellitus ?E11.9 - Type 2 diabetes mellitus without complications (ICD-10) Myocardial infarction ?I21.9 - Acute myocardial infarction, unspecified (ICD-10) Hypertension ?I10 - Essential (primary) hypertension (ICD-10) Coronary artery disease ?I25.10 - Atherosclerotic heart disease of kaw coronary artery without angina pectoris (ICD-10) Surgical History (Updated 02/12/25 @ 23:06 by Jeannette Chavez MD) 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) ?Z96.611 - Presence of right artificial shoulder joint (ICD-10) H/O arthroscopy of right knee (06/05/07) ?Z98.890 - Other specified postprocedural states (ICD-10) History of prostate surgery ?Z98.890 - Other specified postprocedural states (ICD-10) 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) ?Z96.651 - Presence of right artificial knee joint (ICD-10) H/O hernia repair (09/08/18) ?Z98.890 - Other specified postprocedural states (ICD-10) ?Z87.19 - Personal history of other diseases of the digestive system (ICD-10) History of cholecystectomy (08/17/17) ?Z90.49 - Acquired absence of other specified parts of digestive tract (ICD-10) H/O right coronary artery stent placement ?Z95.5 - Presence of coronary angioplasty implant and graft (ICD-10) History of right hip replacement (12/13/19) ?Z96.641 - Presence of right artificial hip joint (ICD-10) Social History Narrative: 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 Melissa is MDM. DNR/DNI What is your current living situation?: I presently have a place to live Problems where you live: no known problems Problems where you live details: N/A In the past 12 months, utilities in danger of being shut off: no In past 12 months, lack of transportation kept you from medical appts, meetings, work, or getting things needed for daily living: no In the past 12 mos, have been you worried that your food would run out before you had money to buy more?: never true In the past 12 mos, the food you bought just didn't last and you didn't have money to buy more?: never true Highest level of school completed/degree received: Master's degree Smoking Status: Never smoker How often do you have a drink containing alcohol: monthly or less AUDIT-C Alcohol total score: 1 Non-prescribed substance use: denies use Caffeine: Yes How often does anyone, including family, friends and others, physically hurt you: never How often does anyone, including family, friends and others, insult or talk down to you: never How often does anyone, including family, friends and others, threaten you with harm: never How often does anyone, including family, friends and others, scream or curse at you: never service: No Exam Narrative: Exam Narrative: Well-nourished well-developed patient in no acute distress. Patient does have obvious word-finding difficulty. He cannot tell me the date, president. He does know where he is. Can point to his family members in the room. HEENT: Normocephalic atraumatic. Pupils are equally round reactive to light. Extraocular muscles are intact. Conjunctivae are moist without any icterus noted. Moist mucous membranes. Posterior pharynx is normal. Neck is supple. Cardiovascular: Heart is regular rate and rhythm S1 and S2 are present without any murmurs. Lungs: Clear to auscultation bilaterally no wheezes rhonchi or rales are appreciated. Patient takes deep breaths without any discomfort. Abdomen: Soft and nontender nondistended with normal bowel sounds. Extremities: Bilateral lower extremities are without edema. Normal DP and PT pulses. Skin: Well perfused without any obvious rashes. Strength is 5/5 of the upper and lower extremities, both distal and proximal muscle groups. Hand media services specialist is normal and symmetric. Padcwz-oj-tdzm is slow. Ubpo-ab-unnh is incomplete bilaterally, he does not get really passed his ankles. There is no nystagmus either horizontally or vertically. No pronator drift. Course Course ED Course: Code stroke was called upon arrival. Patient was met in the ambulance [place]. He did proceed straight to CT scan. Head CT was unremarkable. CTA according to neurology at [place] was poorly timed and therefore nondiagnostic. EKG, read by me, shows normal sinus rhythm with a first-degree AV block. Shows 1 premature ventricular complex, left axis deviation. Pulse 82. Blood work showed slight anemia with a hemoglobin of 11.7. Normal INR. Creatinine is 2.3 which is slightly better than his baseline. Normal electrolytes. Glucose 183. LFTs slightly elevated. Normal CRP. Lipase elevated at 1311. (patient has history of pancreatic mass) Point of care troponin was elevated at 0.06. Negative COVID influenza. Negative acetaminophen and alcohol levels. UA and UDS pending. Discussed with Dr. Diaz, neurology at [facility] feels that this may be some kind of encephalopathy versus CVA. Recommends admission and monitoring and MRI as well as MRA on Friday. Urology will follow with patient in the morning. Discussed with Dr. Chavez who accepts the patient for admission. Neurology also recommends daily baby aspirin, however given patient's history of a GI bleed, I discussed this with hospitalist have not ordered it. Medical Decision Making Lab Data Labs: Lab Results 02/12/25 02/12/25 Range/Units 21:55 22:13 WBC 8.15 (4.50-11.00) K/uL RBC 3.88 L (4.30-5.90) m/uL Hgb 11.7 L (13.5-17.5) gm/dL Hct 35.4 L (37.0-53.0) % MCV 91 (80-100) fL MCH 30 (26-34) pg MCHC 33 (32-36) gm/dL RDW Coeff of Jose Antonio 13.7 (11.5-15.5) % Plt Count 196 (140-440) K/uL Neut % (Auto) 64.2 (42.0-72.0) % Lymph % (Auto) 16.3 L (20-44) % Whitley % (Auto) 13.1 H (0.0-11.0) % Eos % (Auto) 5.8 (0.0-7.0) % Baso % (Auto) 0.5 (0.0-3.0) % Neut # (Auto) 5.23 (1.7-7.0) K/uL Lymph # (Auto) 1.30 (0.90-2.90) K/uL Whitley # (Auto) 1.10 H (0.00-0.90) K/UL Eos # (Auto) 0.47 (0.00-0.50) K/uL Baso # (Auto) 0.04 (0.00-0.30) K/uL Abs Immat Gran (auto) 0.01 (0.00-0.30) K/uL Imm/Tot Granulo (auto) 0.1 % INR 1.04 (0.91-1.10) Sodium 135 (135-149) mmol/L Potassium 3.8 (3.6-5.1) mmol/L Chloride 106 (96-114) mmol/L Carbon Dioxide 23 (20-32) mmol/L Anion Gap 6 L (7-15) mEq/L BUN 34 H (7-30) mg/dL Creatinine 2.3 H (0.5-1.5) mg/dL Estimated GFR 27 ml/min Glucose 183 H (60-115) mg/dL Lactate 1.8 (0.5-1.9) mmol/L Calcium 9.9 (8.4-10.6) mg/dL Magnesium 1.8 (1.5-2.6) mg/dL Total Bilirubin 0.7 (0.1-1.5) mg/dL Direct Bilirubin 0.2 (0.0-0.5) mg/dL AST 38 H (12-35) U/L ALT 19 (4-50) U/L Alkaline Phosphatase 181 H (40-150) U/L Troponin I 0.09 H* (0.01-0.04) ng/mL C-Reactive Protein < 0.5 L (0.5-1.0) mg/dL NT-Pro-B Natriuret Pep 2140 H (See Note) pg/mL Total Protein 6.6 (6.0-8.3) g/dL Albumin 3.5 (3.3-5.0) g/dL Lipase 1311 H (23-300) U/L Procalcitonin 0.09 (<0.50) ng/mL Acetaminophen < 10.0 (10.0-30.0) ug/mL Ethyl Alcohol < 0.01 (0.01-0.03) % SARS-CoV-2 (PCR) Negative SARS-CoV-2 (Negative) Influenza Type A (PCR) Negative PCR FLU A (Negative) Influenza Type B (PCR) Negative PCR FLU B (Negative) POC Troponin I 0.06 H (0.01-0.04) ng/ml Imaging Data CT scan - head: Attestation: I have reviewed the pertinent imaging results. Radiologist's impression: Technique: Noncontrast CT through the head with multiplanar reformats Comparison: None Findings: Brain: No acute hemorrhage. No acute infarct. No significant mass effect or midline shift. No gross evidence of a mass lesion or cerebral edema. Severe chronic senescent disease. Ventricles: No acute abnormality appreciated. Orbits, sinuses, mastoids: No acute abnormality appreciated. Calvarium and soft tissues: No acute abnormality appreciated. Impression: No acute intracranial abnormality appreciated. Discharge Plan Discharge Clinical Impression: AMS (altered mental status), Elevated troponin Patient Disposition: Admitted As Inpatient Condition: Stable
[2025-02-12 22:39] LABS: Albumin* 3.5 g/dL (3.3-5.0); Chloride* 106 mmol/L (96-114); Potassium* 3.8 mmol/L (3.6-5.1); Sodium* 135 mmol/L (135-149)
[2025-02-12 22:41] LABS: Blood Urea Nitrogen* 34 mg/dL (7-30); Creatinine* 2.3 mg/dL (0.5-1.5); Estimated Glomerular Filt Rate 27 ml/min
[2025-02-12 22:42] LABS: Alanine Aminotransferase* 19 U/L (4-50); Alkaline Phosphatase* 181 U/L (40-150); Anion Gap 6 mEq/L (7-15); Aspartate Amino Transferase* 38 U/L (12-35); Bilirubin Direct* 0.2 mg/dL (0.0-0.5); Bilirubin Total* 0.7 mg/dL (0.1-1.5); Calcium* 9.9 mg/dL (8.4-10.6); Carbon Dioxide* 23 mmol/L (20-32); Glucose* 183 mg/dL (60-115); Total Protein* 6.6 g/dL (6.0-8.3)
[2025-02-12 22:42] LABS: PCR FLU A Negative PCR FLU A (Negative); PCR FLU B Negative PCR FLU B (Negative); SARS PCR* Negative SARS-CoV-2 (Negative)
[2025-02-12 22:43] LABS: Troponin, Point-of-Care* 0.06 ng/ml (0.01-0.04)
[2025-02-12 22:44] LABS: Acetaminophen* < 10.0 ug/mL (10.0-30.0); Ethanol* < 0.01 % (0.01-0.03)
[2025-02-12 22:46] LABS: INR 1.04 (0.91-1.10); Prothrombin Time 14.5 Seconds
[2025-02-12 22:58] LABS: NT Pro B Type NatriureticPept* 2140 pg/mL (See Note)
[2025-02-12 22:59] LABS: Procalcitonin* 0.09 ng/mL (<0.50)
--- NOTE | 2025-02-12 23:03 | PM.IMHP1 ---
Assessment and Plan Assessment and plan (1) AMS (altered mental status): Problem comment: -wide differential: Acute CVA, ACS, pancreatic mass/other malignancy, worsening cognitive decline. No obvious infection. -tele neuro wanted aspirin (not starting 2/2 recent bleed), MRA/MRI. I'd consider CT abd/pelvis or u/s for complete workup. Trend trop and update echo. -bladder scan 250cc -ordering lactate and portable chest xray -close monitoring Status: Acute (2) Elevated troponin level: Problem comment: 0.09 in the setting of CKD; no chest pain or ischemic EKG changes. Does have a history of CAD with AMI and SETH in LAD diagonal in 2004. -ordered echo Status: Acute (3) Chronic kidney disease (CKD), stage 4: Problem comment: -baseline creatinine 2.5, follows with Dr. Garcia/Nephrology, stable. -contrast CT on 02/12/25 Status: Acute (4) Coronary artery disease: Problem comment: Anterolateral AMI in 2004 SETH to the diagonal branch of his LAD Status: Acute (5) Type 2 diabetes mellitus: Problem comment: -Hgb A1C 6.2 (01/20/25) on Glipizide (on hold) Status: Acute (6) History of GI bleed: Problem comment: -2 week after periprosthetic hip fracture ORIF on 11/24/24 presented on 12/13/24 with ABLA and GIB (hgb farideh 7.2) and transfused. Again presented on 12/21/24 with acute GIB (hgb farideh 6.5) and again transfused. duodenal ulcer seen on endoscopy likely 2/2 to aspirin. Status: Acute (7) Pancreatic mass: Problem comment: - 17mm cystic mass of pancreas on 2019 CT scan, has declined further imaging or workup per [facility] chart - elevated lipase of unclear significance - consider u/s Status: Acute (8) Myocardial infarction: Problem comment: Anterolateral AMI in 2004 SETH to the diagonal branch of his LAD Status: Acute (9) Hypertension: Status: Acute Hospitalist- H&P: HPI History of Present Illness Date Seen: 02/12/25 Chief complaint: altered mental status Narrative: ADMISSION HISTORY AND PHYSICAL - HOSPITALIST Chief Complaint: HPI: 84 y/o with recent hx of hip fracture (November 2024) and GI Bleed x 2, presents tonight with his ; she is describing acute altered mental status. He is a little confused, lethargic. His symptoms started about 9 am on day of admission and he presented this evening to our ED. She states she has noticed more cognitive changes since his hip fracture and GIB admissions. 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 Last night he couldn't find the light switch to their bedroom. This morning he seemed really tired, moving slower than normal. She was assisting him all day. She noted his BP to be high (190's/90) - but she did not think stroke or feel like he was weak in one area. He was barely getting out two words by evening so she brought him in. We had Braydon on our service twice in December 2024 for ABLA/GIB related to aspirin for VTE prophylaxis after surgery. ER documentation reviewed: 84-year-old male presenting today secondary to altered mental status. Per his starting at 9:00 a.m. this morning, patient has been acting unlike himself. He has gotten progressively more lethargic as the day has gone by. He has difficulty finding words, has not been making sense. He does use a walker to ambulate, has been having a hard time even using his walker, seems much weaker. denies fevers, vomiting, recent changes in appetite or recent illness. Patient has no complaints, states that he feels fine. No known history of trauma. ER COURSE: non-diagnostic CTA (timing off on contrast). CT head: No acute intracranial abnormality appreciated. Elevated trop. elevated lipase. CODE STATUS: Melissa tells me Braydon has been clear regarding his end of life care. No heroics. He is DNR/DNI PCP: Dr. Garcia EMERGENCY CONTACT PLAN: Melissa is bedside. I've updated the PFSH, medications and allergies in the Expanse tabs. INVESTIGATIONS: LABS/MICRO/ECG/IMAGING Vitals:195/95. pulse 73. RR 20. O2SAT 97% on RA EKG: NSR. No ischemic changes. no significant change when compared to the December EKGs CBC reflects a normal white blood cell count. A hemoglobin that is much improved than when he has been admitted twice in December for acute GI bleeding. Tonight it is 11.7. He has normal platelets. INR is normal tonight at 1.04. His electrolytes are normal. His chronic kidney disease is actually better than his typical baseline. His creatinine is 2.3 his BUN is 34. His LFTs are a little bit off. He has always had a normal AST in the 33-25 ranges just a little elevated at 38. His ALT is normal. His alk-phos is bumped a little from the 110's up to 180. He is not complaining of any abdominal pain. He does have a lipase of 1300. His C reactive protein is unremarkable. His procalcitonin is normal. BNP 2140 TSH is pending. Mildly elevated troponin at 0.09 Head CTA/CT Pending reports. However ER physician past on it was likely nondiagnostic because of the timing of bolus of dye used. CT head - nonacute findings. echo 10/2020 Final Impressions: 1. Technically limited exam. 2. Normal LV size, normal wall thickness, normal global systolic function with an estimated EF of 60 - 65%. 3. Possible hypokineis of the very apex (not well visualized). 4. Right ventricular cavity size is normal, global systolic RV function is normal. REVIEW OF SYSTEMS: 12-point ROS completed with patient and negative unless otherwise stated in HPI or below. PHYSICAL EXAM: CONSTITUTIONAL: More alert than expected. He knows he's at [facility]. Tells me its because his thinks he is not well. GENERAL: Well-developed and at ideal body weight, in no respiratory distress. VITAL SIGNS: see record. hypertensive. HEENT: Sclerae are anicteric. No petechiae. CARDIAC: rhythm is regular. There is no S3 or rub. No harsh murmurs. Extremities show trace edema with symmetrical pulses. PULM: good air entry with no wheeze. NEURO: Speech is fluent. A brief neurologic exam is negative. SKIN: No rashes, petechiae, concerning changes PSYCHIATRIC: Euthymic. ADMIT TO MEDSURG: FLOOR CARE DVT: SCDs GI: PO intake, PPI Time spent: Today I spent 75 minutes seeing the patient, discussing the patient with ER staff, reviewing Expanse and EPIC notes/diagnostics, discussing the care plan with our care time that includes social work, PT/OT, pharmacy, RT, residential and documenting my impressions and plan in the medical record. Medical Decision Making Medical Decision Making Has patient completed a Health Care Directive: Yes PFSH PFSH Medical History (Updated 02/13/25 @ 00:21 by Jeannette Chavez MD) History of GI bleed ?Z87.19 - Personal history of other diseases of the digestive system (ICD-10) Angy-prosthetic femoral shaft fracture ?M97.8XXA - Periprosthetic fracture around other internal prosthetic joint, initial encounter (ICD-10) ?Z96.649 - Presence of unspecified artificial hip joint (ICD-10) Osteoarthritis of left hip ?M16.12 - Unilateral primary osteoarthritis, left hip (ICD-10) Duodenal ulcer ?K26.9 - Duodenal ulcer, unspecified as acute or chronic, without hemorrhage or perforation (ICD-10) GI (gastrointestinal bleed) ?K92.2 - Gastrointestinal hemorrhage, unspecified (ICD-10) Pancreatic mass ?K86.89 - Other specified diseases of pancreas (ICD-10) Chronic kidney disease (CKD), stage 4 ?N18.4 - Chronic kidney disease, stage 4 (severe) (ICD-10) Traumatic tear of right rotator cuff ?S46.011A - Strain of muscle(s) and tendon(s) of the rotator cuff of right shoulder, initial encounter (ICD-10) MRSA infection ?A49.02 - Methicillin resistant Staphylococcus aureus infection, unspecified site (ICD-10) Arthritis ?M19.90 - Unspecified osteoarthritis, unspecified site (ICD-10) Type 2 diabetes mellitus ?E11.9 - Type 2 diabetes mellitus without complications (ICD-10) Myocardial infarction ?I21.9 - Acute myocardial infarction, unspecified (ICD-10) Hypertension ?I10 - Essential (primary) hypertension (ICD-10) Coronary artery disease ?I25.10 - Atherosclerotic heart disease of [place] coronary artery without angina pectoris (ICD-10) Surgical History (Updated 02/12/25 @ 23:35 by Jeannette Chavez MD) History of coronary artery stent placement ?Z95.5 - Presence of coronary angioplasty implant and graft (ICD-10) 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) ?Z96.611 - Presence of right artificial shoulder joint (ICD-10) H/O arthroscopy of right knee (06/05/07) ?Z98.890 - Other specified postprocedural states (ICD-10) History of prostate surgery ?Z98.890 - Other specified postprocedural states (ICD-10) 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) ?Z96.651 - Presence of right artificial knee joint (ICD-10) H/O hernia repair (09/08/18) ?Z98.890 - Other specified postprocedural states (ICD-10) ?Z87.19 - Personal history of other diseases of the digestive system (ICD-10) History of cholecystectomy (08/17/17) ?Z90.49 - Acquired absence of other specified parts of digestive tract (ICD-10) H/O right coronary artery stent placement ?Z95.5 - Presence of coronary angioplasty implant and graft (ICD-10) History of right hip replacement (12/13/19) ?Z96.641 - Presence of right artificial hip joint (ICD-10) Social History 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 Melissa is MDM. DNR/DNI What is your current living situation?: I presently have a place to live Problems where you live: no known problems Problems where you live details: N/A In the past 12 months, utilities in danger of being shut off: no In past 12 months, lack of transportation kept you from medical appts, meetings, work, or getting things needed for daily living: no In the past 12 mos, have been you worried that your food would run out before you had money to buy more?: never true In the past 12 mos, the food you bought just didn't last and you didn't have money to buy more?: never true Highest level of school completed/degree received: Master's degree Smoking Status: Never smoker How often do you have a drink containing alcohol: monthly or less AUDIT-C Alcohol total score: 1 Non-prescribed substance use: denies use Caffeine: Yes How often does anyone, including family, friends and others, physically hurt you: never How often does anyone, including family, friends and others, insult or talk down to you: never How often does anyone, including family, friends and others, threaten you with harm: never How often does anyone, including family, friends and others, scream or curse at you: never service: No Meds Home Medications and Allergies Home Medications ?Medication ?Instructions ?Recorded ?Confirmed ?Type ascorbic acid (vitamin C) 1,000 mg 1 g PO DAILY 07/16/23 12/21/24 History capsule cholecalciferol (vitamin D3) 125 125 mcg PO DAILY 07/16/23 12/21/24 History mcg (5,000 unit) capsule glipizide 2.5 mg tablet, extended 2.5 mg PO DAILY 07/16/23 12/21/24 History release 24 hr omega [id number]-wbq-hzi-fish oil 1,000 mg 1 cap PO DAILY 07/16/23 12/21/24 History (120 mg-180 mg) capsule (Fish Oil) sildenafil 50 mg tablet (Viagra) 50 mg PO DAILY PRN 07/16/23 12/21/24 History acetaminophen 500 mg capsule 500 - 1,000 mg (1 - 2 x 500 mg) PO 07/17/23 12/21/24 Rx Q6H PRN #100 caps metoprolol succinate 25 mg 25 mg PO DAILY 06/28/24 12/21/24 History tablet,extended release 24 hr olmesartan 40 mg tablet 40 mg PO DAILY 06/28/24 12/21/24 History blood sugar diagnostic (True 12/13/24 12/13/24 History Metrix Glucose Test Strip) rosuvastatin 10 mg tablet 10 mg PO HS 12/13/24 12/21/24 History omeprazole 20 mg capsule,delayed 20 mg PO DAILY #30 caps 12/15/24 12/21/24 Rx release Allergies Allergy/AdvReac Type Severity Reaction Status Date / Time pseudoephedrine (From Allergy Intermediate unable to Verified 12/21/24 11:10 Sudafed) urinate cat dander Allergy Unknown Verified 12/21/24 11:10 oxycodone Allergy Unknown hallucinati Verified 12/21/24 11:10 ons adhesive Allergy Rash Verified 12/21/24 11:10 atorvastatin AdvReac Diarrhea Verified 12/21/24 11:10 Hospitalist - H&P: Result Labs Labs: Short CBC 02/12/25 Range/Units 22:13 WBC 8.15 (4.50-11.00) K/uL Hgb 11.7 L (13.5-17.5) gm/dL Hct 35.4 L (37.0-53.0) % Plt Count 196 (140-440) K/uL BMP 02/12/25 22:13 Sodium 135 Potassium 3.8 Chloride 106 Carbon Dioxide 23 BUN 34 H Creatinine 2.3 H Glucose 183 H Calcium 9.9 Cardiac Enzymes 02/12/25 Range/Units 22:13 Troponin I 0.09 H* (0.01-0.04) ng/mL Liver Function 02/12/25 Range/Units 22:13 Total Bilirubin 0.7 (0.1-1.5) mg/dL Direct Bilirubin 0.2 (0.0-0.5) mg/dL AST 38 H (12-35) U/L ALT 19 (4-50) U/L Alkaline Phosphatase 181 H (40-150) U/L Albumin 3.5 (3.3-5.0) g/dL
--- NOTE | 2025-02-13 00:11 | CRLHL7_ITS ---
For Patients: As a result of the Cures Act, medical imaging exams and procedure reports are released immediately into your electronic medical record. You may view this report before your referring provider. If you have questions, please contact your health care provider. Indication: Altered mental status, cough Technique: Single view of the chest Comparison: None Findings/Impression: Cardiomegaly and prominent hilar markings, nonspecific but could be seen with volume overload. No other acute cardiopulmonary process detected. Dictated by Milton Hull MD @ 02/13/2025 1:23:55 AM (Electronically Signed)
[2025-02-13 00:18] VITALS: BP 200/101; PULSE 80; PULSE 81; RESP 16; TEMP 36.5; O2SAT 98
[2025-02-13 00:28] LABS: HCO3 VBG 24 mmol/L (21-28); Lactate* 1.6 mmol/L (0.5-1.9); PCO2 VBG 36 mmHG (40-50); PO2 VBG 60.3 mmHG (25-47); pH VBG 7.435 (7.32-7.43)
[2025-02-13 00:54] LABS: Appearance Urine Clear (Clear)
[2025-02-13 01:03] LABS: Cannabinoid Screen Urine Negative (Negative); Methamphetamines Screen Urine Negative (Negative); Tricyclic Antidepressant Urine Negative (Negative)
--- NOTE | 2025-02-13 02:35 | PC.NURSE ---
Addendum entered by Veronica Khanna RN 02/13/25 03:06: Dr. Burrell with [employer] returned phone call and gave order for PRN Hydralazine for HTN. MD stated he was unable to enter parameter to give medication if SBP > 185 though brief writer was able to include this in medication order. MD is aware that evening hospitalist had discussed permissive HTN with pt's primary RN. Original Note: Machine Taper called [employer] at this time and left message for provider regarding chest xray results: Cardiomegaly and prominent hilar markings, nonspecific but could be seen with volume overload. No other acute cardiopulmonary process detected.
--- NOTE | 2025-02-13 02:53 | W.PM.CROSSCO ---
Subjective Subjective Principal diagnosis: elevated BP Interval history: called to review cxr results. BP 200/100. he is not in any distress per nurse Objective Objective Data Details: BP 200/100 Assessment and Plan Assessment and plan (1) Hypertension: Status: Acute Plan given possible stroke, will not aggressively lower BP but will order hydralazine for sbp > 185 Total Time Spent Total Time Spent: 10 min
[2025-02-13 03:00] VITALS: BP 175/94; PULSE 77; RESP 18; TEMP 36.7; O2SAT 96
--- NOTE | 2025-02-13 06:31 | PC.NURSE ---
End of shift report: Pt was admitted to the floor at 2340. Pt is hypertensive, aware. When pt was admitted, publicity writer bladder scanned 286 mls. Pt is cont of urine. Denies pain. Afebrile. Orientated to self/place/month. Pt ambulates 1A, GB, W. Pt is resting in bed, bed alarm acid conditioner light within reach.?
[2025-02-13 06:37] LABS: Hematocrit* 30.9 % (37.0-53.0); Hemoglobin* 10.3 gm/dL (13.5-17.5); Mean Corpuscular HGB Conc 33 gm/dL (32-36); Mean Corpuscular Hemoglobin 30 pg (26-34); Mean Corpuscular Volume 90 fL (80-100); Red Blood Count* 3.42 m/uL (4.30-5.90); White Blood Count* 8.28 K/uL (4.50-11.00)
[2025-02-13 06:44] LABS: Slide Review Reflex No
[2025-02-13 07:00] VITALS: BP 155/93; PULSE 71; RESP 20; TEMP 35.9; O2SAT 95
--- NOTE | 2025-02-13 07:13 | CRLHL7_ITS ---
For Patients: As a result of the 21st Century Cures Act, medical imaging exams and procedure reports are released immediately into your electronic medical record. You may view this report before your referring provider. If you have questions, please contact your health care provider. Indication: Altered mental status. Technique: MRI brain: Multiplanar multisequence noncontrast MR images. MRA head: [id number] images. MRA neck: [id number] images. Comparison: CT brain and CTA head/neck 02/12/2025. Findings: MRI Brain: Mild diffuse cerebral volume loss. No mass effect or midline shift. Patchy FLAIR hyperintensities in the supratentorial white matter, typical for moderately advanced chronic microvascular ischemic changes. Small chronic infarction posterior left occipital lobe. Chronic lacunar infarctions in the thalami. Small foci of susceptibility in the right caudate nucleus and left thalamus, favored to represent chronic microhemorrhages. No recent intracranial hemorrhage or pathologic extra-axial fluid collection. No diffusion restriction to suggest acute infarction. The major arterial flow voids of the skull base are preserved. Globes are symmetric. Mild paranasal sinus mucosal thickening. Minimal left mastoid fluid. MRA head: Artifact significantly degrades image quality. The internal carotid, middle cerebral, and visualized anterior cerebral arteries are grossly patent. The hypoplastic left vertebral artery functionally terminates as the left posterior inferior cerebellar artery. The vertebral, basilar, and posterior cerebral arteries are patent. Evaluation for intracranial aneurysms is limited. MRA neck: Artifact degrades image quality. The visualized common carotid arteries are patent without hemodynamically significant stenosis. The visualized internal carotid arteries are patent without hemodynamically significant stenosis. The right vertebral artery is dominant and the left vertebral artery is hypoplastic. The visualized vertebral arteries are patent without hemodynamically significant stenosis. Impression: MRI brain: 1. No acute intracranial abnormality. 2. 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 3. Small foci of susceptibility in the right caudate nucleus and left thalamus, favored to represent chronic microhemorrhages. These findings can be seen in the setting of hypertensive angiopathy. 4. Moderately advanced chronic microvascular ischemic changes and mild diffuse cerebral volume loss. MRA head/neck: 1. MRA head significantly degraded by artifact. The proximal intracranial vasculature is grossly patent. 2. MRA head degraded by artifact. No hemodynamically significant stenosis of the visualized cervical arteries. Dictated by Christofer Moulton MD @ 02/13/2025 1:56:06 PM (Electronically Signed)
[2025-02-13 07:17] LABS: Albumin* 3.2 g/dL (3.3-5.0)
--- NOTE | 2025-02-13 07:17 | PM.IMPN1 ---
Assessment and Plan Assessment and plan (1) Hypertension: Status: Acute Subjective Date Seen: 02/13/25 Interval history: Braydon was admitted to the hospital 02/12/25 for acute altered mental status and weakness. He was having word finding difficulty at home and difficulty managing ambulation with his walker. In the ER had a reassuring head CT. Troponin 0.09, rest of labs close to baseline (creatinine 2.3, baseline 2.6). Stroke Neurology was consulted; recommended MRI head, MRA head and neck, and TTE. This morning, I see Braydon up in chair. He is able to verbalize what he wants for breakfast, has no complaints for pain. 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 Psych: Appropriate Const: Vital Signs, click to edit/add: Vital Signs - 24 hr 02/12/25 21:37 02/12/25 22:39 02/12/25 22:45 Temperature Pulse Rate 71 69 Pulse Rate [Pulse Oximeter] 73 Respiratory Rate 16 16 11 L Blood Pressure Blood Pressure [Le ft Upper Arm] 195/95 H Blood Pressure [Ri ght Arm] Pulse Oximetry 97 98 99 Oxygen Delivery Me thod Room Air 02/12/25 22:47 02/12/25 23:00 02/12/25 23:01 Temperature Pulse Rate 76 73 70 Pulse Rate [Pulse Oximeter] Respiratory Rate 19 13 14 Blood Pressure 191/90 H 194/81 H Blood Pressure [Le ft Upper Arm] Blood Pressure [Ri ght Arm] Pulse Oximetry 99 97 98 Oxygen Delivery Me thod 02/12/25 23:15 02/12/25 23:17 02/12/25 23:40 Temperature Pulse Rate 72 73 Pulse Rate [Pulse Oximeter] Respiratory Rate 14 20 16 Blood Pressure 195/95 H Blood Pressure [Le ft Upper Arm] Blood Pressure [Ri ght Arm] Pulse Oximetry 98 97 98 Oxygen Delivery Me thod Room Air 02/12/25 23:40 02/13/25 00:18 02/13/25 00:18 Temperature 97.7 F 97.7 F Pulse Rate 81 Pulse Rate [Pulse Oximeter] 80 80 Respiratory Rate 16 16 Blood Pressure Blood Pressure [Le ft Upper Arm] Blood Pressure [Ri ght Arm] 200/101 H 200/101 H Pulse Oximetry 98 98 Oxygen Delivery Me thod Room Air Room Air 02/13/25 03:00 Temperature 98.1 F Pulse Rate Pulse Rate [Pulse Oximeter] 77 Respiratory Rate 18 Blood Pressure Blood Pressure [Le ft Upper Arm] Blood Pressure [Ri ght Arm] 175/94 H Pulse Oximetry 96 Oxygen Delivery Me thod Room Air Labs Labs: Laboratory Results - last 24 hr 02/12/25 02/12/25 02/13/25 21:55 22:13 00:21 WBC 8.15 RBC 3.88 L Hgb 11.7 L Hct 35.4 L MCV 91 MCH 30 MCHC 33 RDW Coeff of [place] 13.7 Plt Count 196 Neut % (Auto) 64.2 Lymph % (Auto) 16.3 L [place] % (Auto) 13.1 H Eos % (Auto) 5.8 Baso % (Auto) 0.5 Neut # (Auto) 5.23 Lymph # (Auto) 1.30 [place] # (Auto) 1.10 H Eos # (Auto) 0.47 Baso # (Auto) 0.04 Abs Immat Gran (auto) 0.01 Imm/Tot Granulo (auto) 0.1 INR 1.04 VBG pH 7.435 H VBG pCO2 36 L VBG pO2 60.3 H VBG HCO3 24 Sodium 135 Potassium 3.8 Chloride 106 Carbon Dioxide 23 Anion Gap 6 L BUN 34 H Creatinine 2.3 H Estimated GFR 27 Glucose 183 H Lactate 1.8 1.6 Calcium 9.9 Magnesium 1.8 Total Bilirubin 0.7 Direct Bilirubin 0.2 AST 38 H ALT 19 Alkaline Phosphatase 181 H Troponin I 0.09 H* 0.08 H* C-Reactive Protein < 0.5 L NT-Pro-B Natriuret Pep 2140 H Total Protein 6.6 Albumin 3.5 Lipase 1311 H Procalcitonin 0.09 TSH 1.230 Urine Color Urine Appearance Urine pH Ur Specific [place] Urine Protein Urine Glucose (UA) Urine Ketones Urine Blood Urine Nitrite Urine Bilirubin Urine Urobilinogen Ur Leukocyte Esterase Urine RBC Urine WBC Ur Squamous Epith Cells Urine Bacteria Urine Opiates Screen Ur Oxycodone Screen Urine Methadone Screen Acetaminophen < 10.0 Ur Barbiturates Screen U Tricyclic Antidepress Ur Phencyclidine Scrn Ur Amphetamines Screen U Methamphetamines Scrn U Benzodiazepines Scrn Urine Cocaine Screen U Marijuana (THC) Screen Ur Drug Screen Comment Ethyl Alcohol < 0.01 SARS-CoV-2 (PCR) Negative SARS-CoV-2 Influenza Type A (PCR) Negative PCR FLU A Influenza Type B (PCR) Negative PCR FLU B POC Troponin I 0.06 H 02/13/25 02/13/25 02/13/25 00:30 00:32 06:00 WBC 8.28 RBC 3.42 L Hgb 10.3 L Hct 30.9 L MCV 90 MCH 30 MCHC 33 RDW Coeff of [place] Plt Count 197 Neut % (Auto) Lymph % (Auto) [place] % (Auto) Eos % (Auto) Baso % (Auto) Neut # (Auto) Lymph # (Auto) [place] # (Auto) Eos # (Auto) Baso # (Auto) Abs Immat Gran (auto) Imm/Tot Granulo (auto) INR VBG pH VBG pCO2 VBG pO2 VBG HCO3 Sodium Potassium Chloride Carbon Dioxide Anion Gap BUN Creatinine Estimated GFR Glucose Lactate Calcium Magnesium Total Bilirubin Direct Bilirubin AST ALT Alkaline Phosphatase Troponin I C-Reactive Protein NT-Pro-B Natriuret Pep Total Protein Albumin Lipase Procalcitonin TSH Urine Color Yellow Urine Appearance Clear Urine pH 7.0 Ur Specific [place] 1.020 Urine Protein 3+ A Urine Glucose (UA) Trace A Urine Ketones Negative Urine Blood Negative Urine Nitrite Negative Urine Bilirubin Negative Urine Urobilinogen 0.2 Ur Leukocyte Esterase Negative Urine RBC 0-2 Urine WBC 2-5 Ur Squamous Epith Cells None Urine Bacteria Few A Urine Opiates Screen Negative Ur Oxycodone Screen Negative Urine Methadone Screen Negative Acetaminophen Ur Barbiturates Screen Negative U Tricyclic Antidepress Negative Ur Phencyclidine Scrn Negative Ur Amphetamines Screen Negative U Methamphetamines Scrn Negative U Benzodiazepines Scrn Negative Urine Cocaine Screen Negative U Marijuana (THC) Screen Negative Ur Drug Screen Comment See Note Ethyl Alcohol SARS-CoV-2 (PCR) Influenza Type A (PCR) Influenza Type B (PCR) POC Troponin I
[2025-02-13 07:18] LABS: Chloride* 107 mmol/L (96-114); Potassium* 3.3 mmol/L (3.6-5.1); Sodium* 136 mmol/L (135-149)
[2025-02-13 07:20] VITALS: PULSE 71
[2025-02-13 07:20] LABS: Alanine Aminotransferase* 18 U/L (4-50); Alkaline Phosphatase* 164 U/L (40-150); Anion Gap 4 mEq/L (7-15); Aspartate Amino Transferase* 37 U/L (12-35); Bilirubin Direct* 0.1 mg/dL (0.0-0.5); Bilirubin Total* 1.0 mg/dL (0.1-1.5); Blood Urea Nitrogen* 32 mg/dL (7-30); Carbon Dioxide* 25 mmol/L (20-32); Creatinine* 2.3 mg/dL (0.5-1.5); Est. Creatinine Clearance* 25.77; Estimated Glomerular Filt Rate 27 ml/min; Total Protein* 6.1 g/dL (6.0-8.3)
[2025-02-13 07:21] LABS: Calcium* 9.9 mg/dL (8.4-10.6); Glucose* 145 mg/dL (60-115)
[2025-02-13] MEDS: METOPROLOL SUCCINATE (XL) 25 MG TAB PO (08:28)
[2025-02-13] MEDS: OMEPRAZOLE 20 MG CAPSULE DR PO ×2 (08:28→13:56)
[2025-02-13] MEDS: SODIUM CHLORIDE 0.9 % (FLUSH) 10 ML SYRINGE 5 ML IVF (08:29)
[2025-02-13 11:00] VITALS: BP 164/81; PULSE 78; RESP 18; TEMP 35.9; O2SAT 97
--- NOTE | 2025-02-13 12:35 | REH.PT ---
Eval orders received. Patient walking back into room with nursing and FWW and SBA. Transferred stand to sit with SBA. Unwilling to carry out further eval until after breakfast. Then patient with ECHO. Then patient with OT for MOCA. Then patient at MRI. Unable to complete eval, but per OT, patient will d/c to home with assist of . Eval not comleted.
--- NOTE | 2025-02-13 13:37 | PM.DS1 ---
DS: Providers Provider Date Seen: 02/13/25 Date of admission: 02/12/25 23:28 Primary care physician: Lisandro Garcia MD Admitting Clinician: Jeannette Chavez MD Consults: OT, PT Attending Physician on discharge: Erica Mccain MD Date of Discharge: 02/13/25 DS: Diagnosis Discharge Diagnosis (1) Elevated troponin level: Status: Acute Problem details: - 0.09 in the setting of CKD; no chest pain or ischemic EKG changes. Does have a history of CAD with AMI and SETH in LAD diagonal in 2004 - trended downward to 0.08, then repeated overnight and 0.12, continued to have no CP and reassuring telemetry - repeat TTE with findings below, discuss further Cardiology workup with PCP as likely not within goals of care Final Impressions: 1. Technically limited exam. 2. Normal LV size, severely increased wall thickness, estimated EF of 60 - 65%. 3. The aortic valve is sclerotic, no stenosis, mild to moderate regurgitation. 4. The mitral valve is sclerotic, mild stenosis (MG 4 mmHg @ HR 70 bpm), mild regurgitation. 5. The inferior vena cava is dilated, respiratory size variation not well visualized. 6. Consider outpatient workup for infiltrative cardiomyopathy. (2) AMS (altered mental status): Status: Acute Problem details: -wide differential: Acute CVA, ACS, pancreatic mass/other malignancy, worsening cognitive decline. No obvious infection with normal lactate, no acute infiltrate on CXR -tele neuro wanted aspirin (did NOT start 2/2 recent bleed), MRA/MRI -back to baseline 02/13, seen by Dr. Vernon of Stroke Neurology during stay MRI brain: 1. No acute intracranial abnormality. 2. 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 3. Small foci of susceptibility in the right caudate nucleus and left thalamus, favored to represent chronic microhemorrhages. These findings can be seen in the setting of hypertensive angiopathy. 4. Moderately advanced chronic microvascular ischemic changes and mild diffuse cerebral volume loss. MRA head/neck: 1. MRA head significantly degraded by artifact. The proximal intracranial vasculature is grossly patent. 2. MRA head degraded by artifact. No hemodynamically significant stenosis of the visualized cervical arteries. (3) Chronic kidney disease (CKD), stage 4: Status: Acute Problem details: -baseline creatinine 2.5, follows with Dr. Garcia/Nephrology, stable -possibly related to troponin elevation (4) Type 2 diabetes mellitus: Status: Acute Problem details: -Hgb A1C 6.2 (01/20/25), on Glipizide as monotherapy as an outpatient -held during stay, restarting upon discharge given normal po intake (5) History of GI bleed: Status: Acute Problem details: -2 week after periprosthetic hip fracture ORIF on 11/24/24 presented on 12/13/24 with ABLA and GIB (hgb farideh 7.2) and transfused -Again presented on 12/21/24 with acute GIB (hgb farideh 6.5) and transfused. duodenal ulcer seen on endoscopy likely 2/2 to aspirin. 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 Improved to 504 on 02/13 with normal appetite and no abdominal pain DS: Summary Hospital Course Hospital Course: Braydon was admitted to the hospital 02/12/25 for acute altered mental status and weakness. He was having word finding difficulty at home and difficulty managing ambulation with his walker. In the ER had a reassuring head CT. Troponin 0.09, rest of labs normal or baseline (creatinine notably 2.3, baseline 2.6, no hyperkalemia). Stroke Neurology was consulted; recommended MRI head, MRA head and neck, and TTE. Also recommend continuing statin; discussed initiating aspirin but this was deferred given patient's severe GI bleed 12/2024 after aspirin use This morning, I see Braydon up in chair. He is able to verbalize what he wants for breakfast, has no complaints for pain. Discussion held with patient and ; he is not interested in further therapy at this time, declines TCU. As he is back to baseline cognition, Melissa is comfortable taking him home with close f/u. 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, no dysarthria Psych: Appropriate Const: Vital Signs, click to edit/add: Vital Signs - 24 hr 02/12/25 21:37 02/12/25 22:39 02/12/25 22:45 Temperature Pulse Rate 71 69 Pulse Rate [Pulse Oximeter] 73 Respiratory Rate 16 16 11 L Blood Pressure Blood Pressure [Le ft Upper Arm] 195/95 H Blood Pressure [Ri ght Arm] Pulse Oximetry 97 98 99 Oxygen Delivery Me thod Room Air 02/12/25 22:47 02/12/25 23:00 02/12/25 23:01 Temperature Pulse Rate 76 73 70 Pulse Rate [Pulse Oximeter] Respiratory Rate 19 13 14 Blood Pressure 191/90 H 194/81 H Blood Pressure [Le ft Upper Arm] Blood Pressure [Ri ght Arm] Pulse Oximetry 99 97 98 Oxygen Delivery Me thod 02/12/25 23:15 02/12/25 23:17 02/12/25 23:40 Temperature Pulse Rate 72 73 Pulse Rate [Pulse Oximeter] Respiratory Rate 14 20 16 Blood Pressure 195/95 H Blood Pressure [Le ft Upper Arm] Blood Pressure [Ri ght Arm] Pulse Oximetry 98 97 98 Oxygen Delivery Me thod Room Air 02/12/25 23:40 02/13/25 00:18 02/13/25 00:18 Temperature 97.7 F 97.7 F Pulse Rate 81 Pulse Rate [Pulse Oximeter] 80 80 Respiratory Rate 16 16 Blood Pressure Blood Pressure [Le ft Upper Arm] Blood Pressure [Ri ght Arm] 200/101 H 200/101 H Pulse Oximetry 98 98 Oxygen Delivery Me thod Room Air Room Air 02/13/25 03:00 02/13/25 07:00 02/13/25 07:20 Temperature 98.1 F 96.6 F L Pulse Rate 71 Pulse Rate [Pulse Oximeter] 77 71 Respiratory Rate 18 20 Blood Pressure Blood Pressure [Le ft Upper Arm] Blood Pressure [Ri ght Arm] 175/94 H 155/93 H Pulse Oximetry 96 95 Oxygen Delivery Me thod Room Air Room Air 02/13/25 11:00 Temperature 96.6 F L Pulse Rate Pulse Rate [Pulse Oximeter] 78 Respiratory Rate 18 Blood Pressure Blood Pressure [Le ft Upper Arm] Blood Pressure [Ri ght Arm] 164/81 H Pulse Oximetry 97 Oxygen Delivery Me thod Room Air DS: Data Data Completed and Pending Completed studies during hospitalization: Procedures Inspection of Upper Intestinal Tract, Via Natural or Artificial Opening Endoscopic (12/13/24) Transfusion of Nonautologous Red Blood Cells into Peripheral Vein, Percutaneous Approach (12/21/24) Labs on day of discharge: Labs from last 24 hours 02/13/25 02/13/25 02/13/25 06:00 00:32 00:30 WBC 8.28 RBC 3.42 L Hgb 10.3 L Hct 30.9 L MCV 90 MCH 30 MCHC 33 RDW Coeff of Jose Antonio Plt Count 197 Neut % (Auto) Lymph % (Auto) [place] % (Auto) Eos % (Auto) Baso % (Auto) Neut # (Auto) Lymph # (Auto) [place] # (Auto) Eos # (Auto) Baso # (Auto) Abs Immat Gran (auto) Imm/Tot Granulo (auto) INR VBG pH VBG pCO2 VBG pO2 VBG HCO3 Sodium 136 Potassium 3.3 L Chloride 107 Carbon Dioxide 25 Anion Gap 4 L BUN 32 H Creatinine 2.3 H Estimated Creat Clear 25.77 Estimated GFR 27 Glucose 145 H Lactate Calcium 9.9 Phosphorus 3.4 Magnesium Total Bilirubin 1.0 Direct Bilirubin 0.1 AST 37 H ALT 18 Alkaline Phosphatase 164 H Troponin I 0.12 H* C-Reactive Protein NT-Pro-B Natriuret Pep Total Protein 6.1 Albumin 3.2 L Lipase 504 H Procalcitonin TSH Urine Color Yellow Urine Appearance Clear Urine pH 7.0 Ur Specific Mabel 1.020 Urine Protein 3+ A Urine Glucose (UA) Trace A Urine Ketones Negative Urine Blood Negative Urine Nitrite Negative Urine Bilirubin Negative Urine Urobilinogen 0.2 Ur Leukocyte Esterase Negative Urine RBC 0-2 Urine WBC 2-5 Ur Squamous Epith Cells None Urine Bacteria Few A Urine Opiates Screen Negative Ur Oxycodone Screen Negative Urine Methadone Screen Negative Acetaminophen Ur Barbiturates Screen Negative U Tricyclic Antidepress Negative Ur Phencyclidine Scrn Negative Ur Amphetamines Screen Negative U Methamphetamines Scrn Negative U Benzodiazepines Scrn Negative Urine Cocaine Screen Negative U Marijuana (THC) Screen Negative Ur Drug Screen Comment See Note Ethyl Alcohol SARS-CoV-2 (PCR) Influenza Type A (PCR) Influenza Type B (PCR) POC Troponin I 02/13/25 02/12/25 02/12/25 00:21 22:13 21:55 WBC 8.15 RBC 3.88 L Hgb 11.7 L Hct 35.4 L MCV 91 MCH 30 MCHC 33 RDW Coeff of Jose Antonio 13.7 Plt Count 196 Neut % (Auto) 64.2 Lymph % (Auto) 16.3 L [place] % (Auto) 13.1 H Eos % (Auto) 5.8 Baso % (Auto) 0.5 Neut # (Auto) 5.23 Lymph # (Auto) 1.30 [place] # (Auto) 1.10 H Eos # (Auto) 0.47 Baso # (Auto) 0.04 Abs Immat Gran (auto) 0.01 Imm/Tot Granulo (auto) 0.1 INR 1.04 VBG pH 7.435 H VBG pCO2 36 L VBG pO2 60.3 H VBG HCO3 24 Sodium 135 Potassium 3.8 Chloride 106 Carbon Dioxide 23 Anion Gap 6 L BUN 34 H Creatinine 2.3 H Estimated Creat Clear Estimated GFR 27 Glucose 183 H Lactate 1.6 1.8 Calcium 9.9 Phosphorus Magnesium 1.8 Total Bilirubin 0.7 Direct Bilirubin 0.2 AST 38 H ALT 19 Alkaline Phosphatase 181 H Troponin I 0.08 H* 0.09 H* C-Reactive Protein < 0.5 L NT-Pro-B Natriuret Pep 2140 H Total Protein 6.6 Albumin 3.5 Lipase 1311 H Procalcitonin 0.09 TSH 1.230 Urine Color Urine Appearance Urine pH Ur Specific Mabel Urine Protein Urine Glucose (UA) Urine Ketones Urine Blood Urine Nitrite Urine Bilirubin Urine Urobilinogen Ur Leukocyte Esterase Urine RBC Urine WBC Ur Squamous Epith Cells Urine Bacteria Urine Opiates Screen Ur Oxycodone Screen Urine Methadone Screen Acetaminophen < 10.0 Ur Barbiturates Screen U Tricyclic Antidepress Ur Phencyclidine Scrn Ur Amphetamines Screen U Methamphetamines Scrn U Benzodiazepines Scrn Urine Cocaine Screen U Marijuana (THC) Screen Ur Drug Screen Comment Ethyl Alcohol < 0.01 SARS-CoV-2 (PCR) Negative SARS-CoV-2 Influenza Type A (PCR) Negative PCR FLU A Influenza Type B (PCR) Negative PCR FLU B POC Troponin I 0.06 H Preliminary micro results at discharge 02/13/25 00:32 Urine Culture - Preliminary Urine,Clean Catch Culture in Progress Discharge Plan Discharge Disposition: Home, Self-Care Date of Admission: 02/12/25 23:28 Attending Provider on Discharge: Erica Mccain Primary Care Provider: Lisandro Garcia Condition: Improved Anticipated Discharge Date/Time: 02/13/25 12:52 Discharge Medications: Continued metoprolol succinate 25 mg tablet extended release 24 hr 25 mg PO DAILY glipizide 2.5 mg tablet extended release 24hr 2.5 mg PO DAILY ascorbic acid (vitamin C) 1,000 mg capsule 1 g PO DAILY cholecalciferol (vitamin D3) 125 mcg (5,000 unit) capsule 125 mcg PO DAILY omega [id number] oil [Fish Oil] 1,000 mg (120 mg-180 mg) capsule 1 cap PO DAILY (DME) True Metrix Glucose Test Strip Strip MISCELLANEOUS DAILY rosuvastatin 10 mg tablet 10 mg PO HS acetaminophen [8 Hour Pain Reliever] 650 mg tablet extended release 650 mg PO HS coenzyme Q10 [Co Q-10] 400 mg capsule 400 mg PO DAILY multivitamin [Daily Multi-Vitamin] Tablet 1 tab PO DAILY vitamin E 268 mg (400 unit) capsule 268 mg PO DAILY zinc 50 mg tablet 50 mg PO DAILY omeprazole 20 mg capsule,delayed release(DR/EC) 20 mg PO BID Rx Instructions: TAKE BEFORE MEALS Discharge Orders: Discharge Order (Routine); Ordered 02/13/25 Ordered By: Erica Mccain Additional Instructions: No changes to home medications. See Dr. Garcia as scheduled to discuss restarting therapies. No driving at this time. Activity Level: No strenuous activity Discharge Diet: Diabetic Follow Up Appointments: Lisandro Garcia MD [Primary Care Provider, Family Practice] Referral Note: 7-10 days Forms: Patient Belongings, [facility] [place] Info Instructions
[2025-02-13] MEDS: POTASSIUM BICARB 25 MEQ EFFERVESCENT TAB PO (13:55)
--- NOTE | 2025-02-13 15:32 | PC.NURSE ---
D/C note Pt pleasant and cooperative with cares. Standby assist with walker, cont. of b/b. education given to pt and spouse both verbally and written. IV removed, cath intact. Pt left facility accompanied by RN and spouse via wheelchair at 1515
== END 2025-02-13 15:15 | disposition home or self-care (01) ==
LOC: ED 23:18 → MEDSURG 23:37
PROVIDERS: Admitting Provider Family Medicine; Emergency Provider Family Medicine; PCP Family Medicine; Visit Provider Family Medicine
DX: R41.82 Altered mental status, unspecified (principal); R79.89 Other specified abnormal findings of blood chemistry; E11.22 Type 2 diabetes mellitus with diabetic chronic kidney disease; N18.4 Chronic kidney disease, stage 4 (severe); I10 Essential (primary) hypertension; I25.10 Atherosclerotic heart disease of native coronary artery without angina pectoris; I21.9 Acute myocardial infarction, unspecified; K86.89 Other specified diseases of pancreas
CPT/HCPCS: 36415; 51798; 70450; 70496; 70498; 70544; 70547; 70551; 71045; 80048; 80069; 80076; 80143; 80306; 81001; 81003; 82077; 82803; 83605; 83690; 83735; 83880; 84145; 84443; 84484; 85025; 85027; 85610; 86140; 87086; 87636; 93005; 93306; 94761; 97165; 99285; 99291; A9270; G0378; Q9967